=== PATIENT | female | born 1950 | race Caucasian/White ===

== ENCOUNTER 2018-10-01 12:01 | Emergency (ER) | payer MEDICARE ==
[~2018-10-01] VITALS: Ht 157.5 cm; Wt 59.0 kg
[~2018-10-01 12:01] MED LIST: CITA-311 PO; LEVO112T5 PO; LORA0.5T PO; PANT-47 PO
[2018-10-01] MEDS ORDERED: normal saline 1000ML IV soln IVB ONE (12:15)
--- NOTE | 2018-10-01 12:36 | NUR ---
UP TO BATHROOM WITH SB ASSIST. OBTAINED CC URINE SPEC
[2018-10-01 12:42] LABS: BASOPHILS % (AUTO) 0.6 % (0-1); EOSINOPHILS % (AUTO) 0.5 % (0-6); HEMATOCRIT 45.9 % (35.0-45.0); HEMOGLOBIN 16.2 g/dl (12.0-16.0); LYMPHOCYTES # (AUTO) 2.1 X10'3 (1.1-4.8); LYMPHOCYTES % (AUTO) 25.1 % (21-51); MEAN CORPUSCULAR HEMOGLOBIN 36.7 PG (27.0-31.0); MEAN CORPUSCULAR HGB CONC 35.3 g/dL (33.0-36.5); MEAN CORPUSCULAR VOLUME 103.9 FL (78-98); MEAN PLATELET VOLUME 8.9 FL (7.4-10.4); MONOCYTES # (AUTO) 0.9 X10'3 (0-0.9); MONOCYTES % (AUTO) 10.5 % (2-12); NEUTROPHILS # (AUTO) 5.3 X10'3 (1.8-7.7); NEUTROPHILS % (AUTO) 63.3 % (42-75); PLATELET COUNT 195 X10'3 (140-440); RED BLOOD COUNT 4.42 X10'6 (4.20-5.60); RED CELL DISTRIBUTION WIDTH 12.9 % (11.5-14.5); WHITE BLOOD COUNT 8.4 X10'3 (4.5-11.0)
[2018-10-01] MEDS ORDERED: LORazepam 1 MG tablet PO ONE (12:45)
[2018-10-01 12:46] LABS: ALANINE AMINOTRANSFERASE 38 U/L (12-78); ALBUMIN 3.2 G/DL (3.4-5.0); ALBUMIN/GLOBULIN RATIO 1.1 (1.1-1.5); ALKALINE PHOSPHATASE 69 IU/L (46-116); ANION GAP 10 (8-16); ASPARTATE AMINO TRANSFERASE 33 U/L (10-37); BILIRUBIN,TOTAL 0.4 MG/DL (0.1-1.0); BLOOD UREA NITROGEN 5 MG/DL (7-18); BUN/CREATININE RATIO 9.8 (6.6-38.0); CALCIUM 8.2 MG/DL (8.5-10.1); CHLORIDE 104 MMOL/L (99-107); CREATININE 0.51 MG/DL (0.40-0.90); GLUCOSE 84 MG/DL (70-104); POTASSIUM 3.8 MMOL/L (3.5-5.1); SODIUM 136 MMOL/L (135-145); TOTAL CARBON DIOXIDE 22.2 MMOL/L (24-32); TOTAL PROTEIN 6.2 G/DL (6.4-8.2); eGFR > 90 ML/MIN
[2018-10-01 12:49] LABS: CLARITY,URINE SLIGHTLY CLOUDY (Clear); COLOR,URINE STRAW (Yellow); GLUCOSE, URINE NEGATIVE (Neg); KETONES,URINE NEGATIVE (Neg); LEUKOCYTE ESTERASE ,URINE NEGATIVE (Neg); NITRITES, URINE POSITIVE (Neg); OCCULT BLOOD,URINE NEGATIVE (Neg); PROTEIN,URINE NEGATIVE (Neg); UA COLLECTION TYPE CLN CATCH MIDSTREAM; UROBILINOGEN,URINE 0.2 E.U/dL (0.2-1.0)
[2018-10-01 12:55] LABS: BACTERIA,URINE 4+ /HPF (Neg); MUCUS STRANDS NONE SEEN /LPF (Neg); RBC,URINE 0-2 /HPF (0-2); SQUAMOUS EPITHELIAL CELL,UR FEW /LPF (FEW); WBC,URINE 0-4 /HPF (0-4)
[2018-10-01 12:57] LABS: ETHANOL 0.178 GM/DL (0.0-0.010)
[2018-10-01 13:02] LABS: URINE AMPHETAMINE SCREEN NEGATIVE (Neg); URINE BARBITUATE SCREEN NEGATIVE (Neg); URINE BENZODIAZEPINES SCREEN NEGATIVE (Neg); URINE CANNABINOID SCREEN NEGATIVE (Neg); URINE COCAINE SCREEN NEGATIVE (Neg); URINE METHADONE SCREEN NEGATIVE (Neg); URINE OPIATE SCREEN POSITIVE (Neg); URINE PHENCYCLIDINE SCREEN NEGATIVE (Neg)
--- NOTE | 2018-10-01 14:00 | NUR ---
TOLERATED REGULAR DIET WELL AND RETAINED.
--- NOTE | 2018-10-01 14:45 | NUR ---
[facility] STAFF-PA AT THE BEDSIDE WITH PATIENT.
--- NOTE | 2018-10-01 15:12 | NUR ---
UP TO BATHROOM WITH STANDBY ASSIST TO URINATE. STEADY GAIT.
[2018-10-01] MEDS ORDERED: PROP20TA6 PO (15:33)
[2018-10-01] MEDS ORDERED: MULT1TAB74 PO (15:33)
[2018-10-01] MEDS ORDERED: LEVO75TA PO (15:33)
[2018-10-01] MEDS ORDERED: HYDR-4353 PO (15:33)
[2018-10-01] MEDS ORDERED: TRAM50TA2 PO (15:33)
[2018-10-01 17:15] VITALS: BP 126/94
== END 2018-10-01 17:18 ==
LOC: ER 12:02
DX: F32.9 Major depressive disorder, single episode, unspecified (principal); F41.9 Anxiety disorder, unspecified; F79 Unspecified intellectual disabilities; E86.0 Dehydration; I10 Essential (primary) hypertension; J44.9 Chronic obstructive pulmonary disease, unspecified; E03.9 Hypothyroidism, unspecified; G89.29 Other chronic pain; F17.200 Nicotine dependence, unspecified, uncomplicated; Z88.6 Allergy status to analgesic agent; Z90.710 Acquired absence of both cervix and uterus; Z79.899 Other long term (current) drug therapy
CPT/HCPCS: 36415; 71045; 80053; 80305; 80320; 81001; 84443; 85025; 93005; 96360; 99285; J7030

== ENCOUNTER 2018-10-01 16:42 | Inpatient (IN) | payer MEDICARE, OTHER ==
[~2018-10-01] VITALS: Ht 157.5 cm; Wt 63.6 kg
[~2018-10-01 16:42] MED LIST changes: +HYDR-4353 PO; +LEVO75TA PO; +MULT1TAB74 PO; +PROP20TA6 PO; +TRAM50TA2 PO
[2018-10-01] MEDS ORDERED: magnesium hydroxide 30ml (MOM) UD suspension PO PRN (17:35)
[2018-10-01] MEDS ORDERED: tuberculin, purif. prot. deriv. 5 units/0.1ml ID ONE (17:35)
[2018-10-01] MEDS ORDERED: loperamide 2mg capsule PO PRN (17:35)
[2018-10-01] MEDS ORDERED: LORazepam 1 MG tablet PO PRN ×2 (17:35→18:35)
[2018-10-01] MEDS ORDERED: NICOTINE POLACRILEX 2 MG LOZENGE MM PRN (17:35)
[2018-10-01] MEDS ORDERED: hydrOXYzine 25 MG tablet PO PRN (17:35)
[2018-10-01] MEDS ORDERED: acetaminophen 325mg tablet PO PRN (17:35)
[2018-10-01 17:41] VITALS: BP 116/59
--- NOTE | 2018-10-01 18:36 | NUR ---
Pt self presented to the ER with C/O severe depression, has not been eating, reports weight loss. Reports S/I without a plan. Pt drinks ETOH daily; 0.178 today. Reports drinking 2 liters of beer this AM. Pt seen in the ER by JIMMY Trinidad, then admitted to the unit at 1715. Pt brought up via wheelchair by francheska Banda. Pt changed into green scrubs for safety check. Belongings to be inventoried by oncoming shift. Home medications stored in pharmacy. Presents with chronic bilat hand tremors that she reports have been there for 20 years, however they are worsened by high anxiety. Given lorazepam 1 mg per order from Dr. Baker.
[2018-10-01] MEDS: HYDROcodone/acetaminophen 10/325mg tab PO PRN (19:25)
[2018-10-01 20:00] VITALS: BP 116/59
[2018-10-01] MEDS: pantoprazole 40mg Tablet.DR PO SCH (20:00)
[2018-10-01] MEDS: propranolol 10mg tablet PO SCH (20:00)
[2018-10-01] MEDS: LORazepam 1 MG tablet PO PRN (21:13)
[2018-10-01] MEDS: OLANZapine 2.5MG tablet PO PRN (21:13)
[2018-10-02] VITALS: BP 134/71
[2018-10-02] MEDS: LORazepam 1 MG tablet PO SCH ×7 (00:03→23:50)
[2018-10-02] MEDS: HYDROcodone/acetaminophen 10/325mg tab PO PRN ×5 (00:07→23:51)
--- NOTE | 2018-10-02 04:04 | NUR ---
Nursing Progress Note: Legal hold: 5150 Client on involuntary status for DTS. Report received from nurse with use of SBAR: BIBIANA Locke. Why are they here: The patient self-presented to the ER. She c/o severe depression and anxiety. She reports loss of appetite, weight loss, and says that she drinks beer daily starting in the morning. Her BAL was 0.178 at admit. She is a former client of [facility]. The patient has bilateral tremors to her arms that "worsen when I'm anxious. She has a home in [place] to return to, "but it's too much house for me. I just live in one room, my bedroom." Assessment What has happened this shift: The patient was admitted to [facility] at 1715. She was on her bed at shift change, then for 1:1. She reports that her depression and anxiety is overwhelming. "I just sit in my room and watch tv, I isolate a lot." She says that upon waking, she reaches over for her alcohol before she even gets up. "I drink all the time." She states that she hasn't eaten in 5 days, "I'm not hungry, but I do drink Boost." She denies AV/H, is depressed with SI, but has no plan. She has been started on 20mg Propanolol, Ativan 1mg q4 hours ATC, with Ativan 1mg PRN q8 hours, and Olanzepine 5mg PRN HS. VS q4 hours have been WNL. 127/83, P.75 at MN, 143/72, P.70 at 0430. the patient appears quite weak and is unsteady on her feet. She is a fall risk. PT eval ordered. S/I, H/I: No plan A/VH: denies Sleep:Poor ADL's: Independent Group attendance: No groups yet Were meds taken:Yes Any med S/E none noted or seen. Mental Status Exam Appearance: Disheveled older lady with hair sticking up all over, wearing green scrubs. Eye contact:Good Behavior: Laying in bed all shift. Speech: Clear, but pressured. Mood: Anxious. Affect: Constricted Thought process: Linear, goal oriented. Thought Content: perseverates about anxiety. Cognition: A/O x4 Insight:Poor Judgment: Poor Interventions PRN's used: Ativan, Propanolol, Olanzepine. Therapeutic interventions: 1:1, therapeutic listening, created safe environment, assessments, positive feedback. Restraints/seclusion/emergency medication: N/A Justification of Continued Inpatient Treatment: The patient is in crisis, and needs to be stabilized. She cannot provide for safety, food and safe housing at this time.
[2018-10-02] MEDS: multivitamins, therapeutics tablet PO SCH (07:51)
[2018-10-02] MEDS: folic acid 1mg tablet PO SCH (07:51)
[2018-10-02] MEDS: pantoprazole 40mg Tablet.DR PO SCH ×2 (07:51→20:21)
[2018-10-02] MEDS: cyanocobalamin 500mcg tablet PO SCH (07:52)
[2018-10-02] MEDS: levoTHYROXINE 75mcg tablet PO SCH (07:52)
[2018-10-02] MEDS: nicotine 21mg patch - 24 hr TD SCH (07:53)
[2018-10-02 07:54] VITALS: BP 127/61
[2018-10-02] MEDS: propranolol 10mg tablet PO SCH ×2 (08:00→20:20)
[2018-10-02 08:19] LABS: CHOLESTEROL 191 MG/DL (0-200); HDL CHOLESTEROL 97 MG/DL (35-60); LDL CHOLESTEROL 78 MG/DL (50-100); TRIGLYCERIDES 34 MG/DL (20-135)
[2018-10-02] MEDS: LORazepam 1 MG tablet PO PRN (09:45)
--- NOTE | 2018-10-02 10:38 | NUR ---
Malnutrition Consult: Pt admit w/ depression PO 100% regular diet meeting needs. No edema/wounds, weakness present. At this time pt does not qualify for malnutrition. Addendum: 10/02/18 at [address] Amended: Links added.
--- NOTE | 2018-10-02 16:30 | NUR ---
NURSING PROGRESS NOTE Legal hold: Voluntary Report received from nurse Sj RN with use of SBAR Why are they here: The patient self-presented to the ER. She c/o severe depression and anxiety. She reports loss of appetite, weight loss, and says that she drinks beer daily starting in the morning. Her BAL was 0.178 at admit. She is a former client of [facility]. The patient has bilateral tremors to her arms that "worsen when I'm anxious. She has a home in [place] to return to, "but it's too much house for me. I just live in one room, my bedroom." Assessment What has happened this shift: Pt seen at bedside for 1:1 assessment. Pt described her current mental health issues as depression after the loss of her and her physical cx as having been drinking heavily for the past year. She asked questions about the effects of withdrawal and "how long will it last and what is it like?" Withdrawal education provided encouraging pt to rest and to be sure and let staff know how she is feeling and ask for help to get her needs met if she needs assistance. Pt educated to the use of the call light on her bed and was able to demonstrate use of the call light. She was encouraged to not get up without staff assistance. Education provided on the bed alarm which will be set at night. S/I, H/I: No plan A/VH: denies Sleep:Poor ADL's: Independent Group attendance: No stays in bed Were meds taken:Yes Any med S/E: None noted or reported Mental Status Exam Appearance: Disheveled; unkempt Eye contact:Good Behavior: Laying in bed all shift. Speech: Clear Mood: Anxious. Affect: Constricted Thought process: Linear, goal oriented. Thought Content: perseverates about anxiety. Cognition: A/O x4 Insight:Poor Judgment: Poor Interventions PRN's used: Ativan, [place] Therapeutic interventions: Provided active listening and therapeutic communication, encouraged shower and group attendance and participation, administered medications monitoring for side effects, VS q 4 hours, monitored for safety providing q15min safety checks. Restraints/seclusion/emergency medication: N/A Justification of Continued Inpatient Treatment: Patient unable to care for self and she lives alone. Passive SI has been drinking heavily not eating or sleeping well. Pt is in need of medication stabilization to prevent rehospitalization.
[2018-10-02] MEDS ORDERED: proMETHazine 6.25 mg/5 ml UD oral syrup PO PRN (19:20)
[2018-10-02 20:00] VITALS: BP 139/64
[2018-10-02] MEDS: olanzapine 10mg tablet PO SCH (20:21)
[2018-10-02] MEDS: gabapentin 100mg capsule PO SCH (20:21)
--- NOTE | 2018-10-03 03:04 | NUR ---
Nursing Progress Note: Legal hold: 5150 Client on involuntary status for DTS. Report received from nurse with use of SBAR: BIBIANA Tovar. Why are they here: The patient self-presented to the ER. She c/o severe depression and anxiety. She reports loss of appetite, weight loss, and says that she drinks beer daily starting in the morning. Her BAL was 0.178 at admit. She is a former client of [facility]. The patient has bilateral tremors to her arms that "worsen when I'm anxious. She has a home in [place] to return to, "but it's too much house for me. I just live in one room, my bedroom." Assessment What has happened this shift: The patient was seen in her room for 1:1. She was lying on her bed. She appears fatigued, anxious, and has bilateral tremors to her arms. She claims they have been there for 20 years. She has difficulty using a glass to drink from and hard time taking medicine. She reports that she lives in a house that is way too big for just her. "My room is upstairs. Sometimes when I think I'm hungry, I decide that it's just too far to go for it. I just get too tired." She reports that her children are "taking care of getting rid of my house, so I can move closer to town." The patient remained in her room all night, she is still unsteady on her feet, weak, and a fall risk. The patient does not always use call light for assistance, and overestimates her abilities. S/I, H/I: No plan A/VH: denies Sleep:Poor ADL's: Independent, needs ambulation assistance. Group attendance: No groups tonight Were meds taken:Yes Any med S/E none noted or seen. Mental Status Exam Appearance: Disheveled older lady with hair matted in the back, wearing green scrubs. Eye contact:Good Behavior: Laying in bed all shift. Speech: Clear, but pressured. Mood: Anxious. Affect: Constricted Thought process: Linear, goal oriented. Thought Content: perseverates about anxiety. Cognition: A/O x4 Insight:Poor Judgment: Poor Interventions PRN's used: Ativan, Propanolol, Olanzepine, [place] x2 Therapeutic interventions: 1:1, therapeutic listening, created safe environment, assessments, positive feedback. Restraints/seclusion/emergency medication: N/A Justification of Continued Inpatient Treatment: The patient is in crisis, and needs to be stabilized. She cannot provide for safety, food and safe housing at this time.
[2018-10-03 04:00] VITALS: BP 138/82
[2018-10-03] MEDS: LORazepam 1 MG tablet PO SCH ×6 (04:13→23:04)
[2018-10-03] MEDS: HYDROcodone/acetaminophen 10/325mg tab PO PRN ×4 (04:14→23:04)
[2018-10-03 07:26] LABS: BASOPHILS % (AUTO) 0.4 % (0-1); EOSINOPHILS # (AUTO) 0.1 X10'3 (0-0.9); HEMATOCRIT 46.4 % (35.0-45.0); HEMOGLOBIN 15.7 g/dl (12.0-16.0); LYMPHOCYTES # (AUTO) 1.9 X10'3 (1.1-4.8); LYMPHOCYTES % (AUTO) 32.3 % (21-51); MEAN CORPUSCULAR HEMOGLOBIN 35.6 PG (27.0-31.0); MEAN CORPUSCULAR HGB CONC 33.8 g/dL (33.0-36.5); MEAN CORPUSCULAR VOLUME 105.5 FL (78-98); MEAN PLATELET VOLUME 8.9 FL (7.4-10.4); MONOCYTES # (AUTO) 0.9 X10'3 (0-0.9); MONOCYTES % (AUTO) 14.8 % (2-12); NEUTROPHILS % (AUTO) 51.5 % (42-75); PLATELET COUNT 176 X10'3 (140-440); RED CELL DISTRIBUTION WIDTH 12.7 % (11.5-14.5); WHITE BLOOD COUNT 5.9 X10'3 (4.5-11.0)
[2018-10-03] MEDS: pantoprazole 40mg Tablet.DR PO SCH ×2 (07:31→20:08)
[2018-10-03] MEDS: cyanocobalamin 500mcg tablet PO SCH (07:31)
[2018-10-03] MEDS: multivitamins, therapeutics tablet PO SCH (07:32)
[2018-10-03] MEDS: cefpodoxime proxetil 100mg tablet PO SCH ×2 (07:32→16:40)
[2018-10-03] MEDS: duloxetine 30mg CAPSULE.DR PO SCH (07:32)
[2018-10-03] MEDS: levoTHYROXINE 75mcg tablet PO SCH (07:32)
[2018-10-03] MEDS: gabapentin 100mg capsule PO SCH ×3 (07:32→20:09)
[2018-10-03] MEDS: folic acid 1mg tablet PO SCH (07:32)
[2018-10-03] MEDS: propranolol 10mg tablet PO SCH ×2 (07:32→20:09)
[2018-10-03] MEDS: nicotine 21mg patch - 24 hr TD SCH (07:33)
[2018-10-03 07:41] VITALS: BP 145/86
[2018-10-03 07:45] LABS: ALANINE AMINOTRANSFERASE 37 U/L (12-78); ALBUMIN 3.1 G/DL (3.4-5.0); ALKALINE PHOSPHATASE 62 IU/L (46-116); ANION GAP 6 (8-16); ASPARTATE AMINO TRANSFERASE 28 U/L (10-37); BILIRUBIN,TOTAL 0.7 MG/DL (0.1-1.0); BLOOD UREA NITROGEN 9 MG/DL (7-18); CALCIUM 9.2 MG/DL (8.5-10.1); CHLORIDE 108 MMOL/L (99-107); CREATININE 0.69 MG/DL (0.40-0.90); GLUCOSE 99 MG/DL (70-104); MAGNESIUM 1.7 MG/DL (1.5-2.4); PHOSPHORUS 3.8 MG/DL (2.3-4.5); POTASSIUM 3.6 MMOL/L (3.5-5.1); SODIUM 143 MMOL/L (135-145); TOTAL CARBON DIOXIDE 29.2 MMOL/L (24-32); TOTAL PROTEIN 6.1 G/DL (6.4-8.2); eGFR 85 ML/MIN
--- NOTE | 2018-10-03 14:27 | NUR ---
Nursing Progress Note: Legal hold: Voluntary Report received from nurse Sj RN with use of SBAR Why are they here: The patient self-presented to the ER. She c/o severe depression and anxiety. She reports loss of appetite, weight loss, and says that she drinks beer daily starting in the morning. Her BAL was 0.178 at admit. She is a former client of [facility]. The patient has bilateral tremors to her arms that "worsen when I'm anxious. She has a home in [place] to return to, "but it's too much house for me. I just live in one room, my bedroom." Assessment What has happened this shift: Pt appears to be asleep at start of shift on her side RR even and unlabored. 1:1 assessment provided at bedside. Pt states she is beginning to feel better. Pt up for breakfast and lunch and is eating better today. Encouraged her to shower. S/I, H/I: No plan A/VH: denies Sleep:Poor ADL's: Independent, needs ambulation assistance and prompts to shower Group attendance: No Were meds taken:Yes Any med S/E: None noted or reported Mental Status Exam Appearance: Disheveled older lady with hair matted in the back, wearing green scrubs. Eye contact:Good Behavior: Complains of pain most of the time Speech: Clear, but pressured. Mood: Anxious. Affect: Constricted Thought process: Linear Thought Content: perseverates about anxiety. Cognition: A/O x4 Insight:Poor Judgment: Poor Interventions PRN's used: [place] Therapeutic interventions: 1:1 therapeutic communication and listening, administered medicine w/education and monitored for side effects, encouraged pt to shower and care for ADL's, Q 15 min monitoring for safety check. Restraints/seclusion/emergency medication: N/A Justification of Continued Inpatient Treatment: The patient is in crisis, and needs to be stabilized. She cannot provide for safety, food and safe housing at this time.
[2018-10-03 20:00] VITALS: BP 158/81
[2018-10-03] MEDS: olanzapine 10mg tablet PO SCH (20:09)
[2018-10-03] MEDS: lactobacillus rhamnosus 10,000 MMU CELLS/CAPSULE PO SCH (20:09)
--- NOTE | 2018-10-03 22:53 | NUR ---
Nursing Progress Note: Legal hold: None Client is voluntary. Report received from nurse with use of SBAR: BIBIANA Tovar. Why are they here: The patient self-presented to the ER. She c/o severe depression and anxiety. She reports loss of appetite, weight loss, and says that she drinks beer daily starting in the morning. Her BAL was 0.178 at admit. She is a former client of [facility]. The patient has bilateral tremors to her arms that "worsen when I'm anxious. She has a home in [place] to return to, "but it's too much house for me. I just live in one room, my bedroom." Assessment What has happened this shift: At shift change, the patient was seen in the group room sitting in a chair. She agreed to 1:1 at bedside. The patient reports that she feels a lot stronger today, "I can do a lot of things today, that I couldn't do yesterday." Her bilateral arm tremors appear to have lessened, "I can hold a glass of water today, without spilling it." She says that when she discharges, she will have to go back to her house in [place], to pack her belongings. "I have to go there, but I don't want to." She reports that eventually, she will go to assisted living, "where I won't be so isolated, and away from people." She says that she has many rolls of fabric to use for quilting, "I love to make quilts, and I'll be able to do that there." The patient states that her anxiety has lessened, and the pain medicine is helping. She is using a walker for most ambulatory tasks, and says that she is sleeping better. S/I, H/I: No plan A/VH: denies Sleep:Poor ADL's: Independent, needs ambulation assistance. Uses FWW. Group attendance: No groups tonight Were meds taken:Yes Any med S/E none noted or seen. Mental Status Exam Appearance: Disheveled older lady with hair matted in the back, wearing red pajamas. Eye contact:Good Behavior: Ambulating with FWW around unit. Speech: Clear, but pressured. Mood: Anxious. Affect: Constricted Thought process: Linear, goal oriented. Thought Content: perseverates about anxiety. Cognition: A/O x4 Insight:Poor Judgment: Poor Interventions PRN's used: [place] x2 Therapeutic interventions: 1:1, therapeutic listening, created safe environment, assessments, positive feedback. Restraints/seclusion/emergency medication: N/A Justification of Continued Inpatient Treatment: The patient is in crisis, and needs to be stabilized. She cannot provide for safety, food and safe housing at this time.
[2018-10-04] MEDS: ibuprofen 200mg tablet PO PRN (00:48)
[2018-10-04] MEDS: LORazepam 1 MG tablet PO SCH ×6 (03:54→23:56)
[2018-10-04] MEDS: HYDROcodone/acetaminophen 10/325mg tab PO PRN ×4 (03:54→20:42)
[2018-10-04 08:00] VITALS: BP 159/92
[2018-10-04] MEDS: folic acid 1mg tablet PO SCH (08:08)
[2018-10-04] MEDS: multivitamins, therapeutics tablet PO SCH (08:08)
[2018-10-04] MEDS: levoTHYROXINE 75mcg tablet PO SCH (08:08)
[2018-10-04] MEDS: pantoprazole 40mg Tablet.DR PO SCH ×2 (08:08→20:41)
[2018-10-04] MEDS: duloxetine 30mg CAPSULE.DR PO SCH (08:08)
[2018-10-04] MEDS: lactobacillus rhamnosus 10,000 MMU CELLS/CAPSULE PO SCH ×2 (08:08→20:40)
[2018-10-04] MEDS: thiamine 100mg tablet PO SCH (08:08)
[2018-10-04] MEDS: propranolol 10mg tablet PO SCH ×2 (08:09→20:40)
[2018-10-04] MEDS: gabapentin 100mg capsule PO SCH ×3 (08:09→20:41)
[2018-10-04] MEDS: cefpodoxime proxetil 100mg tablet PO SCH ×2 (08:09→17:48)
[2018-10-04] MEDS: cyanocobalamin 500mcg tablet PO SCH (08:09)
[2018-10-04] MEDS: nicotine 21mg patch - 24 hr TD SCH (08:15)
[2018-10-04 08:20] VITALS: BP 159/92
--- NOTE | 2018-10-04 09:10 | NUR ---
Pt initially had inspiratory rhonchi left lower lobe, cleared with cough. Addendum: 10/04/18 at 0914 by Kelsey Cooley RN (Lee) Amended: Links added.
--- NOTE | 2018-10-04 13:38 | NUR ---
Nursing Progress Note: Legal hold: None Client is voluntary. Report received from nurse with use of SBAR: BIBIANA Gustafson. Why are they here: The patient self-presented to the ER. She c/o severe depression and anxiety. She reports loss of appetite, weight loss, and says that she drinks beer daily starting in the morning. Her BAL was 0.178 at admit. She is a former client of [facility]. The patient has bilateral tremors to her arms that "worsen when I'm anxious. She has a home in [place] to return to, "but it's too much house for me. I just live in one room, my bedroom." Assessment What has happened this shift: Pt admits to depression though states she feels better when she is here, she gets depressed when she thinks about going home, "should be the opposite." Pt states that she lives in a big house with lots of property and is alone most of the time. Pt denies SI/HI/AH/VH. Pt has moderate to severe BUE tremors that are worse with intention, pt states that it runs in her family and she has had them for 20 years. Pt continues on routine Ativan, requested prn Kulm 10 at 1115 for 7/10 neck pain. Pt was working with PT but they are discharging her today. PT left a handout with exercises they want the pt to do 2-3 times per day, also instructed to encourage pt to ambulate in the hallway at least 2 times per day for strengthening and endurance. Pt is deconditioned. PT also recommends that pt be discharged with an order for a 4 wheeled walker, Chrissy BRO notified. Pt states she uses a Trilogy inhaler at home, asked if her kids could bring it in for her, explained that if they do a label with dosage instructions needs to be on the inhaler or the box and the pharmacy here would have to check it. Pt observed ambulating in the hallway with peers using FWW, gait is steady, balance is good, pt has general weakness. Pt needs reminders at times to use walker. Pt c/o constipation, MOM administered at 0900. Pt needs encouragement for po fluids. She states she usually drinks only 1 pitcher if that per day of water, at home she was eating hot dogs and drinking beer though states she did drink Boost. Nutrition education and dehydration prevention teaching provided. Pt states that she will try to drink at least 2 water pitchers today. S/I, H/I: Pt denies A/VH: Pt denies Sleep: Slept 7.25 hours per noc shift report ADL's: Independent, uses FWW Group attendance: Yes Were meds taken:Yes Any med S/E: none reported or observed Mental Status Exam Appearance: Kyphotic, stubble on chin, has clean hospital scrubs on Eye contact:Good Behavior: cooperative Speech: Clear, soft Mood: euthymic Affect: calm Thought process: Linear Thought Content: does not wish to return home, perseverates at times on pain med regime stating she was on pain pills X 20 years and would break them in half and take every 2 hours during the night while at home. Cognition: A/O x4 Insight:Fair Judgment: Fair Interventions PRN's used: [place] 10, MOM Therapeutic interventions: 1:1 assessment, therapeutic conversation, medication administration/monitoring/education, encouragement to exercise/ambulate, encouragement to use FWW, encouragement to attend groups, pain management, fall prevention, Q 15 min safety checks. Restraints/seclusion/emergency medication: N/A Justification of Continued Inpatient Treatment: The patient is in crisis, and needs to be stabilized. She cannot provide for safety, food and safe housing at this time, pt is an alcoholic and is wanting to go to inpatient rehab, looking into [facility].
[2018-10-04 20:37] VITALS: BP 144/73
[2018-10-04] MEDS: olanzapine 10mg tablet PO SCH (20:41)
--- NOTE | 2018-10-05 02:10 | NUR ---
Nursing Progress Note: Legal hold: Voluntary Client on voluntary DTS Report received from nurse with use of SBAR: BIBIANA Lu Why are they here: The patient was brought to the ER after her son called EMS r/t depression with S/I. The c/o severe depression and anxiety r/t the anneversary of the of her . She reports loss of appetite, weight loss, and says that she drinks beer daily starting in the morning, approximately 2-4 quarts/day. Her BAL was 0.178 at admit, continues on detox protocol. She is a former client of [facility]. The patient has chronic bilateral tremors to her arms and chronic pain r/t osteoarthritis, scoliosis, and osteoporosis. She has a home in [place] to return to, "but it's too much house for me. I just live in one room, my bedroom." She has a possible history of atrial fibrillation with arrhythmia, recently received a echocardiogram, which showed mild regurgitation. She has an upcoming Dumpcart [employer] appointment with Dr. Reich on 10/14/18. Pt. is currently on ABT r/t UTI. Assessment What has happened this shift: Pt. up in the Recreation Room at the beginning of the shift, continues to exhibit bilateral tremulousness. She is later up ambulating in the hallway with use of FWW and steady gait, fall precautions remain in place. Chronic pain relived with PRN [place], and no s/s of withdrawal exhibited this shift AEB V/S WNL, no diaphoresis, and no c/o n/v. 1:1 completed at bedside, pt. denies S/I, and states her depression and anxiety are "Much better since she has been here." She reports she has has been sleeping and eating well. Pt. identifies her coping mechanisms as her close knit family and being outside in nature. She reports that her plan for the future is to move to a senior apartment, without stairs. U/A obtained per order and culture/colony count in process, will continue to monitor. S/I, H/I: Denies A/VH: N/A Sleep: Appears to be resting comfortably this shift, awakened for scheduled Ativan per Detox protocol ADL's: Ambulates with steady gait using FWW, pt. continues to exhibit bilateral tremulousness, fall precautions in place Group attendance: Pt. reports she attends groups Were meds taken: Yes Any med S/E: None Mental Status Exam Appearance: Pt. appears frail and older than chronological age, however neat and appropriately dressed in hospital attire. She continues to exhibit bilateral tremulousness. Eye contact: Good Behavior: Cooperative with fatigue Speech: Soft, WNL Mood: Pleasant Affect: Blunted, animates with conversation Thought process: Goal directed Thought Content: Phobia r/t returning home alone, wants to move to senior housing Cognition: A&O X3 (not to day) Insight: Fair Judgment: Fair Interventions PRN's used: [place] X1 with effectiveness Therapeutic interventions: Introduced self and established rapport, maintained and safe and therapeutic environment, ensured contract for safety, provided medication eduction, encouraged independent performance of ADLs and prescribed PT exercises, monitored for s/s of withdrawal, maintained fall precautions, obtained ordered U/A, monitored pain level and need for intervention, and maintained Q 15 min safety checks. Restraints/seclusion/emergency medication: N/A Justification of Continued Inpatient Treatment: Pt. requires a safe and supportive environment and interruption of current crisis. She will possibly discharge to [facility].
[2018-10-05] MEDS: LORazepam 1 MG tablet PO SCH ×3 (04:20→12:39)
[2018-10-05] MEDS: HYDROcodone/acetaminophen 10/325mg tab PO PRN ×5 (04:31→20:54)
[2018-10-05] MEDS: multivitamins, therapeutics tablet PO SCH (07:37)
[2018-10-05] MEDS: gabapentin 100mg capsule PO SCH ×2 (07:37→12:39)
[2018-10-05] MEDS: propranolol 10mg tablet PO SCH ×2 (07:38→20:52)
[2018-10-05] MEDS: cyanocobalamin 500mcg tablet PO SCH (07:38)
[2018-10-05] MEDS: pantoprazole 40mg Tablet.DR PO SCH ×2 (07:38→20:52)
[2018-10-05 07:39] VITALS: BP 118/67
[2018-10-05] MEDS: ibuprofen 200mg tablet PO PRN ×3 (07:39→16:46)
[2018-10-05] MEDS: levoTHYROXINE 75mcg tablet PO SCH (07:39)
[2018-10-05] MEDS: lactobacillus rhamnosus 10,000 MMU CELLS/CAPSULE PO SCH ×2 (07:39→20:55)
[2018-10-05] MEDS: thiamine 100mg tablet PO SCH (07:40)
[2018-10-05] MEDS: duloxetine 30mg CAPSULE.DR PO SCH (07:40)
[2018-10-05] MEDS: folic acid 1mg tablet PO SCH (07:40)
[2018-10-05] MEDS: nicotine 21mg patch - 24 hr TD SCH (07:42)
[2018-10-05] MEDS: cefpodoxime proxetil 100mg tablet PO SCH ×2 (09:01→17:52)
[2018-10-05] MEDS: acetaminophen 325mg tablet PO PRN ×2 (09:01→21:54)
--- NOTE | 2018-10-05 10:27 | NUR ---
Spoke with MD Palma regarding tapering pt off ativan as discussed in the flash meeting. She needs to start a taper to be discharged to [facility] as planned which was discussed in flash meeting.
[2018-10-05] MEDS ORDERED: LORazepam 1 MG tablet PO SCH (16:00)
[2018-10-05] MEDS: hydrOXYzine 25 MG tablet PO SCH (16:47)
--- NOTE | 2018-10-05 17:19 | NUR ---
Nursing Progress Note: Legal hold: None Client is voluntary. Report received from nurse with use of SBAR: BIBIANA Weston. Why are they here: The patient self-presented to the ER. She c/o severe depression and anxiety. She reports loss of appetite, weight loss, and says that she drinks beer daily starting in the morning. Her BAL was 0.178 at admit. She is a former client of [facility]. The patient has bilateral tremors to her arms that "worsen when I'm anxious. She has a home in [place] to return to, "but it's too much house for me. I just live in one room, my bedroom." Assessment What has happened this shift: At shift change patient was still asleep in her bed. Pt later woke up and was calm and cooperative and agreeable to our 1:1 assessment. Took medications without incident. Stated "I slept really good." Pt denies feeling SI today and reports that she is "feeling a lot better" and implied she believes its because of the medications. She also reported that group has given her much needed coping mechanism tools, and pt stated, "I feel like Im learning something for a change." Pt had a calm demeanor during the beginning of shift then after lunch seemed to become a little anxious. Pts medications are to be adjusted per md orders, she is to start decreasing her ativan from q4h to q8h prn and atarax was added to her emar per MD Up. Pts medication adjustments are focused for her future discharge plan. S/I, H/I: No plan A/VH: denies Sleep:fair ADL's: Independent, needs ambulation assistance. Uses FWW. Group attendance: Yes Were meds taken:Yes Any med S/E none noted or seen. Mental Status Exam Appearance: Disheveled older lady with hair matted in the back, wearing red pajamas. Eye contact:Good Behavior: Ambulating with FWW around unit. Speech: Clear Mood: Anxious. Affect: Constricted Thought process: Linear, goal oriented. Thought Content: perseverates about anxiety. Cognition: A/O x4 Insight:Poor Judgment: Poor Interventions PRN's used: [place] and ativan Therapeutic interventions: 1:1, therapeutic listening, created safe environment, assessments, positive feedback. Restraints/seclusion/emergency medication: N/A Justification of Continued Inpatient Treatment: The patient is in crisis, and needs continued therpuetic interventionand support to prevent decompensation. She cannot provide for safety, food and safe housing at this time.
[2018-10-05] MEDS: gabapentin 300mg capsule PO SCH (20:53)
[2018-10-05] MEDS: olanzapine 10mg tablet PO SCH (20:53)
[2018-10-05] MEDS: LORazepam 1 MG tablet PO PRN (20:54)
[2018-10-05 20:56] VITALS: BP 126/76
--- NOTE | 2018-10-06 00:02 | NUR ---
Nursing Progress Note: Legal hold: Voluntary Client on voluntary DTS Report received from nurse with use of SBAR: BIBIANA Strong Why are they here: The patient was brought to the ER after her son called EMS r/t depression with S/I. The c/o severe depression and anxiety r/t the anneversary of the of her . She reports loss of appetite, weight loss, and says that she drinks beer daily starting in the morning, approximately 2-4 quarts/day. Her BAL was 0.178 at admit, continues on detox protocol. She is a former client of [facility]. The patient has chronic bilateral tremors to her arms and chronic pain r/t osteoarthritis, scoliosis, and osteoporosis. She has a home in [place] to return to, "but it's too much house for me. I just live in one room, my bedroom." She has a possible history of atrial fibrillation with arrhythmia, recently received a echocardiogram, which showed mild regurgitation. She has an upcoming Office Cleaner appointment with Dr. Reich on 10/14/18. Pt. is currently on ABT r/t UTI. Assessment What has happened this shift: Pt. up in the Group Room at the beginning of the shift. She spends her time interacting with her peers. She agrees to a 1:1 assessment at her bedside. She is tearful stating "I just stayed in bed and waisted away, then I started drinking beer again from the time I woke up till I went to bed." She says she started doing this when she had to take care of people she loved and watch them pass. She verbalizes her need to stay in treatment and confirms that she knows she deserves help so that she can get better. She is compliant with all her evening medications. Denies SI, HI, VH, AH, confirms depression. She has difficulty sleeping this evening and is up and down out of her bed, walking the halls on occasion. S/I, H/I: Denies A/VH: N/A Sleep: Broken sleep, see sleep assessment ADL's: Ambulates with steady gait using FWW. Independent. Group attendance: No groups this shift Were meds taken: Yes Any med S/E: None Mental Status Exam Appearance: Clean, well groomed, visible bilateral tremors in hands Eye contact: Good Behavior: Cooperative with fatigue Speech: Soft, WNL Mood: Pleasant Affect: Blunted Thought process: Tearful, worried about current state and getting better Thought Content: Wants to go somewhere to live that she does not have to be alone. Cognition: A&O X3 Insight: Fair Judgment: Fair Interventions PRN's used: [place] X1. Tylenol 650mg PO Therapeutic interventions: 1:1 assessment, maintained a safe and therapeutic environment, ensured contract for safety, provided medication education, encouraged independent performance of ADLs and prescribed PT exercises, monitored for s/s of withdrawal, maintained fall precautions, obtained ordered U/A, monitored pain level and need for intervention, and maintained Q 15 min safety checks. Restraints/seclusion/emergency medication: N/A Justification of Continued Inpatient Treatment: Pt. requires a safe and supportive environment and interruption of current crisis. She will possibly discharge to [facility].
[2018-10-06] MEDS: hydrOXYzine 25 MG tablet PO SCH ×3 (00:35→19:31)
[2018-10-06] MEDS: OLANZapine 2.5MG tablet PO PRN ×2 (00:45→22:09)
[2018-10-06] MEDS: HYDROcodone/acetaminophen 10/325mg tab PO PRN ×3 (05:18→20:58)
[2018-10-06] MEDS: propranolol 10mg tablet PO SCH ×2 (08:00→20:00)
[2018-10-06] MEDS: cyanocobalamin 500mcg tablet PO SCH (08:06)
[2018-10-06] MEDS: lactobacillus rhamnosus 10,000 MMU CELLS/CAPSULE PO SCH ×2 (08:06→20:54)
[2018-10-06] MEDS: thiamine 100mg tablet PO SCH (08:06)
[2018-10-06] MEDS: multivitamins, therapeutics tablet PO SCH (08:06)
[2018-10-06] MEDS: duloxetine 30mg CAPSULE.DR PO SCH (08:06)
[2018-10-06] MEDS: pantoprazole 40mg Tablet.DR PO SCH ×2 (08:06→20:56)
[2018-10-06] MEDS: levoTHYROXINE 75mcg tablet PO SCH (08:06)
[2018-10-06] MEDS: cefpodoxime proxetil 100mg tablet PO SCH ×2 (08:07→16:40)
[2018-10-06] MEDS: folic acid 1mg tablet PO SCH (08:07)
[2018-10-06] MEDS: gabapentin 300mg capsule PO SCH ×3 (08:24→20:57)
[2018-10-06] MEDS: nicotine 21mg patch - 24 hr TD SCH (08:26)
[2018-10-06] MEDS: LORazepam 1 MG tablet PO PRN (12:56)
[2018-10-06] MEDS ORDERED: LORazepam 1 MG tablet PO ONE (16:05)
--- NOTE | 2018-10-06 17:33 | NUR ---
Nursing Progress Note: Legal hold: Voluntary Client on voluntary DTS Report received from nurse with use of SBAR: BIBIANA Holt Why are they here: The patient was brought to the ER after her son called EMS r/t depression with S/I. The c/o severe depression and anxiety r/t the anniversary of the of her . She reports loss of appetite, weight loss, and drinks beer 2-4 quarts daily starting in the morning, BAL 0.178 at admit. She is a former client of [facility]. Patient has chronic bilateral tremors to her arms and chronic pain r/t osteoarthritis, scoliosis, and osteoporosis. She has a home in [place] to return to, "but it's too much house for me. I just live in one room, my bedroom." She has a possible history of atrial fibrillation with arrhythmia, recently received a echocardiogram, which showed mild regurgitation. She has an upcoming Unindentured Apprentice appointment with Dr. Reich on 10/14/18. Pt. is currently on ABT r/t UTI. Assessment What has happened this shift: Patient is observed sleeping at shift change, no apparent distress observed. When she awakens her HR is low, 49 BPM. Patient denies confusion or dizziness, neither observed. After patient walks around a bit and joins others for breakfast her HR manually is 51 BPM. Patient takes all medications without issue, RN held Inderal. Patient reports increased amount of pain in her low back and neck, 02/28. Patient is observed walking without discomfort and conversating with others during breakfast. Patient leaves group early and states that she is overwhelmingly depressed. She is tearful as she discusses the issues in her life that are causing turmoil. RN allows patient the time she needs to discuss her feelings and patient reports thankfulness and that she feels better. S/I, H/I: none reported A/VH: none reported Sleep: 4hrs NOC ADL's: Ambulates with steady gait using FWW. showered today. Group attendance: yes, left early Were meds taken: Yes Any med S/E: None reported, no IMs or tremors observed Mental Status Exam Appearance: Clean, well groomed, visible bilateral tremors in hands Eye contact: Good Behavior: Cooperative with fatigue Speech: Soft tone, normal rate and rhythm Mood: anxious, depressed but friendly Affect: restricted but congruent with mood Thought process: Tearful, worried about current state and getting better Thought Content: depression and hardships Cognition: A&O X3 Insight: Fair Judgment: Fair Interventions PRN's used: Ativan for anxiety, Bernard X1 for pain Therapeutic interventions: 1:1 therapeutic assessment, maintained safe therapeutic milieu, encouraged independent ADLs, provided active listening with positive feedback, provided medication education as needed, monitored for change in behavior and needed intervention. Q 15 min safety checks. Restraints/seclusion/emergency medication: N/A Justification of Continued Inpatient Treatment: Continued therapeutic support and medication management needed to provide stabilization, and prevent decompensation decreasing risk to patient for readmittance to in-patient unit.She will possibly discharge to [facility].
[2018-10-06 19:00] VITALS: BP 111/90
[2018-10-06] MEDS: olanzapine 10mg tablet PO SCH (20:57)
[2018-10-06] MEDS: LORazepam 1 MG tablet PO SCH (20:57)
[2018-10-06] MEDS: mag hydrox/Alum hydrox/simeth 30ml oral suspension PO PRN (21:07)
--- NOTE | 2018-10-07 02:26 | NUR ---
Nursing Progress Note: Legal hold: Voluntary Client on voluntary DTS Report received from nurse with use of SBAR: BIBIANA Locke Why are they here: The patient was brought to the ER after her son called EMS r/t depression with S/I. The c/o severe depression and anxiety r/t the anniversary of the of her . She reports loss of appetite, weight loss, and drinks beer 2-4 quarts daily starting in the morning, BAL 0.178 at admit. She is a former client of [facility]. Patient has chronic bilateral tremors to her arms and chronic pain r/t osteoarthritis, scoliosis, and osteoporosis. She has a home in [place] to return to, "but it's too much house for me. I just live in one room, my bedroom." She has a possible history of atrial fibrillation with arrhythmia, recently received a echocardiogram, which showed mild regurgitation. She has an upcoming Exercise Instruct appointment with Dr. Reich on 10/14/18. Pt. is currently on ABT r/t UTI. Assessment What has happened this shift: Patient is up and around walking the unit with her walker this shift. She interacts appropriately with others and is friendly. She agrees to a 1:1 assessment at her bedside. She states "It was a bad day, my medicines were messed up." She said that her anxiety was a 8/10 all day but is now a 3/10 because "my medications got fixed." She expresses that her back pain is a 9/10, and requests a Stowell. She is given a Stowell with her HS medications. She gets up throughout the night requesting her Stowell and is upset because she thinks her Stowell are scheduled sooner, and that she can have them more frequently. She is educated on her medication schedule at this time, and informed that her Stowell is QID. She denied SI, HI, VH, AH. She does confirm depression. She reports no side effects to medications. S/I, H/I: Denies A/VH: Denies Sleep: Currently sleeping, see sleep assessment ADL's: Ambulates with steady gait using FWW. Group attendance: No groups this shift Were meds taken: Yes Any med S/E: None reported Mental Status Exam Appearance: Clean, well groomed, visible bilateral tremors in hands Eye contact: Good Behavior: Cooperative with fatigue Speech: Soft tone, normal rate and rhythm Mood: Depressed Affect: Congruent with mood Thought process: Linear Thought Content: Treatment Cognition: A&O X3 Insight: Fair Judgment: Fair Interventions PRN's used: [place] X1 for pain Therapeutic interventions: 1:1 therapeutic assessment, maintained safe therapeutic milieu, encouraged independent ADLs, provided active listening with positive feedback, provided medication education as needed, monitored for change in behavior and needed intervention. Q 15 min safety checks. Restraints/seclusion/emergency medication: N/A Justification of Continued Inpatient Treatment: Continued therapeutic support and medication management needed to provide stabilization, and prevent decompensation decreasing risk to patient for readmittance to in-patient unit.She will possibly discharge to [facility].
[2018-10-07] MEDS: HYDROcodone/acetaminophen 10/325mg tab PO PRN ×4 (05:42→20:49)
[2018-10-07] MEDS: folic acid 1mg tablet PO SCH (07:33)
[2018-10-07] MEDS: multivitamins, therapeutics tablet PO SCH (07:33)
[2018-10-07] MEDS: pantoprazole 40mg Tablet.DR PO SCH ×2 (07:34→20:28)
[2018-10-07] MEDS: levoTHYROXINE 75mcg tablet PO SCH (07:34)
[2018-10-07] MEDS: lactobacillus rhamnosus 10,000 MMU CELLS/CAPSULE PO SCH ×2 (07:35→20:45)
[2018-10-07] MEDS: LORazepam 1 MG tablet PO SCH ×3 (07:35→20:49)
[2018-10-07] MEDS: gabapentin 300mg capsule PO SCH ×2 (07:35→12:54)
[2018-10-07] MEDS: duloxetine 30mg CAPSULE.DR PO SCH (07:35)
[2018-10-07] MEDS: cefpodoxime proxetil 100mg tablet PO SCH ×2 (07:36→16:42)
[2018-10-07] MEDS: cyanocobalamin 500mcg tablet PO SCH (07:36)
[2018-10-07] MEDS: thiamine 100mg tablet PO SCH (07:36)
[2018-10-07] MEDS: nicotine 21mg patch - 24 hr TD SCH (07:43)
[2018-10-07 07:52] VITALS: BP 103/56
[2018-10-07] MEDS: propranolol 10mg tablet PO SCH ×2 (08:00→16:43)
[2018-10-07] MEDS: hydrOXYzine 25 MG tablet PO SCH ×2 (12:03→19:51)
--- NOTE | 2018-10-07 12:48 | NUR ---
Initial: Pt admit to [facility] for depression. Pt currently on a regular diet with documented PO intake 100% meeting nutrient needs. [facility] 10/04. Pt currently receiving Thiamine, Folic acid, and MVI for Etoh abuse. No edema or wounds. No nutrition diagnosis at this time. Will continue to follow. Recommendations: 1) Continue with regular diet 2) Continue Thiamine and folic acid given Etoh abuse 3) Weekly wt Addendum: 10/07/18 at [address] Amended: Links added.
--- NOTE | 2018-10-07 13:00 | NUR ---
DISCHARGE PLANNING: (Late Entry) Pt met w/ Art from the [facility] and determined she was not going into In [facility] and it would be too difficult for her to get off of her pain medication. Her plain now is that her daughter said she could come stay with her until she finds an assisted living place. However a short time later pt changed her plain again to return home to go through her things to prepare for packing up and moving out into a small apartment. Updated Dr. Palma on pt's living arrangement plans. Dr. Palma asked that I speak w/ the pt's children to discuss discharge and placement details. Asked Dr. Palma if he wanted pt to have a psychiatrist. He said he wanted to first find out if her PCP, Dr. Conner would work w/ him to keep her on the medications he has her on. Phoned Dr. Conner' office & spoke w/ radiology receptionist, explained situation, gave her Dr. Salazar contact info, she said Dr. Conner would likely phone him on Sat. Made plans to meet w/ pt and her son, Osvaldo and her daughter, Kurt Wednesday during visiting hours. Notified Dr. Palma that Dr. Conner should be contacting him and of my plans to meet w/ pt's children. Chrissy Espinoza, [facility]
[2018-10-07 15:44] VITALS: BP 119/59
--- NOTE | 2018-10-07 17:33 | NUR ---
Nursing Progress Note: Legal hold: Voluntary Client on voluntary DTS Report received from nurse with use of SBAR: Jerica Dangelo RN Why are they here: The patient was brought to the ER after her son called EMS r/t depression with S/I. The c/o severe depression and anxiety r/t the anniversary of the of her . She reports loss of appetite, weight loss, and drinks beer 2-4 quarts daily starting in the morning, BAL 0.178 at admit. She is a former client of [facility]. Patient has chronic bilateral tremors to her arms and chronic pain r/t osteoarthritis, scoliosis, and osteoporosis. She has a home in [place] to return to, "but it's too much house for me. I just live in one room, my bedroom." She has a possible history of atrial fibrillation with arrhythmia, recently received a echocardiogram, which showed mild regurgitation. She has an upcoming Thread Clipper appointment with Dr. Reich on 10/14/18. Pt. is currently on ABT r/t UTI. Assessment What has happened this shift: Patient is observed walking the halls with FWW at change of shift. Her affect is bright, she states she slept well and is feeling better today. She joins others in the group room for breakfast. Patient states that today has been the best day she has had in a year. She is active, walking the halls and attending all groups. She is calm and friendly to others, courteous and kind. She has a plan to live with her daughter for a little bit until she can find a smaller place of her own. She expresses excitement. *Monitor bradycardia, vitals q3hrs. Decrease propranolol to 15mg BID, in the morning and at 1700. Hold if HR below 50 or patient is symptomatic. S/I, H/I: none reported A/VH: none reported Sleep: 5.5hrs NOC ADL's: Ambulates with steady gait using FWW. Group attendance: yes Were meds taken: Yes Any med S/E: None reported, no IMs or tremors observed Mental Status Exam Appearance: Clean, well groomed, visible bilateral tremors in hands Eye contact: Good Behavior: Cooperative with fatigue Speech: Soft tone, normal rate and rhythm Mood: improved, hopeful and at times happy Affect: restricted but congruent with mood Thought process: linear, goal directed Thought Content: focused on life improvements Cognition: A&O X3 Insight: Fair Judgment: Fair Interventions PRN's used: [place] X2 for pain Therapeutic interventions: 1:1 therapeutic assessment, maintained safe therapeutic milieu, encouraged independent ADLs, provided active listening with positive feedback, provided medication education as needed, monitored for change in behavior and needed intervention. Q 15 min safety checks. Restraints/seclusion/emergency medication: N/A Justification of Continued Inpatient Treatment: Continued therapeutic support and medication management needed to provide stabilization, and prevent decompensation decreasing risk to patient for readmittance to in-patient unit.She will possibly discharge to [facility].
[2018-10-07 19:00] VITALS: BP 121/82
[2018-10-07 20:28] VITALS: BP 121/82
[2018-10-07] MEDS: gabapentin 400mg capsule PO SCH (20:29)
[2018-10-07] MEDS: olanzapine 10mg tablet PO SCH (20:29)
[2018-10-07] MEDS: mag hydrox/Alum hydrox/simeth 30ml oral suspension PO PRN (20:44)
[2018-10-07] MEDS: OLANZapine 2.5MG tablet PO PRN (21:55)
[2018-10-07 22:00] VITALS: BP 115/60
[2018-10-08 01:00] VITALS: BP 110/56
[2018-10-08] MEDS: ibuprofen 200mg tablet PO PRN (01:06)
--- NOTE | 2018-10-08 01:58 | NUR ---
Nursing Progress Note: Legal hold: Voluntary Client on voluntary DTS Report received from nurse with use of SBAR: BIBIANA Locke Why are they here: The patient was brought to the ER after her son called EMS r/t depression with S/I. The c/o severe depression and anxiety r/t the anneversary of the of her . She reports loss of appetite, weight loss, and says that she drinks beer daily starting in the morning, approximately 2-4 quarts/day. Her BAL was 0.178 at admit, continues on detox protocol. She is a former client of [facility]. The patient has chronic bilateral tremors to her arms and chronic pain r/t osteoarthritis, scoliosis, and osteoporosis. She has a home in [place] to return to, "but it's too much house for me. I just live in one room, my bedroom." She has a possible history of atrial fibrillation with arrhythmia, recently received a echocardiogram, which showed mild regurgitation. She has an upcoming Home Furnishings Sales Representative appointment with Dr. Reich on 10/14/18. Pt. is currently on ABT r/t UTI. Assessment What has happened this shift: Pt. up in the Group Room at the beginning of the shift, completing puzzles with others and interacting appropriately. She continues to exhibit bilateral tremulousness in upper extremities and uses a FWW to ambulate, fall precautions remain in place. Pt. presents as cooperative, restless, and very animated, some s/s of hypomania at times. Scheduled Atrax administered and pt. reports her anxiety is much better, she denies depression or S/I. Pt. reports she feels her medications are working well, states, "He took me off the medicines that were making my depression worse! Dr. Baker called my doctor to make sure he agrees not to change any of my medications." Pt. denies any desire to use alcohol again, states, "I can't even stand the smell of it!" She repots she does not need alcohol anymore now that her anxiety and pain are under control (she feels the QID Gracey is effective with rest or PRN Motrin in between). Pt. reports she has has been sleeping, eating well, and going to groups. Pt. identifies her coping mechanisms as helping others and rest. Per AM shift report, Q 3 hr. V/S are being obtained in order to monitor for bradycardia, VS have been WNL, however pt. reports some numbness in her bilateral upper and lower extremities which she believes to be r/t decreased HR. Will endorse to AM shift and continue to monitor. Pt. also exhibits slight non-pitting edema in her rt. foot. Foot elevated on pillows at HS and pt. voices content, will continue to monitor. S/I, H/I: Denies A/VH: N/A Sleep: Reports she has been sleeping well, however requests PRN Zyprexa r/t insomnia, administered with effectiveness. ADL's: Ambulates with steady gait using FWW, pt. continues to exhibit bilateral tremulousness, fall precautions in place Group attendance: Pt. reports she attends all groups Were meds taken: Yes Any med S/E: Per AM shift report, Q 3 hr. V/S are being obtained in order to monitor for bradycardia, VS have been WNL, however pt. reports some numbness in her bilateral upper and lower extremities. Pt. also exhibits slight non-pitting edema in her rt. foot. Mental Status Exam Appearance: Pt. appears frail and older than chronological age, however neat and appropriately dressed in hospital attire. She continues to exhibit bilateral tremulousness in upper extremities. Eye contact: Good Behavior: Cooperative with restlessness. Some s/s of hypomania Speech: WNL, rapid and hyperverbal at times Mood: Pleasant Affect: Animated Thought process: Goal directed with some racing thoughts Thought Content: Perseveration regarding possible bradycardia and numbness in bilateral extremities. Cognition: A&O Insight: Fair to good Judgment: Fair to good Interventions PRN's used: Gracey X1, Motrin X1, and Zyprexa for insomnia Therapeutic interventions: Provided active listening, maintained and safe and therapeutic environment, ensured contract for safety, provided medication eduction, encouraged independent performance of ADLs and prescribed PT exercises, monitored for s/s of withdrawal, maintained fall precautions, performed Q 3 hr V/S to monitor for bradycardia, elevated rt. foot r/t edema, monitored pain level and need for intervention, and maintained Q 15 min safety checks. Restraints/seclusion/emergency medication: N/A Justification of Continued Inpatient Treatment: Pt. requires a safe and supportive environment and continued medication adjustments. She is hoping to discharge to an assisted living facility.
[2018-10-08 04:04] VITALS: BP 102/54
[2018-10-08] MEDS: cyanocobalamin 500mcg tablet PO SCH (07:52)
[2018-10-08] MEDS: levoTHYROXINE 75mcg tablet PO SCH (07:52)
[2018-10-08] MEDS: gabapentin 400mg capsule PO SCH ×2 (07:52→20:44)
[2018-10-08] MEDS: LORazepam 1 MG tablet PO SCH ×3 (07:52→20:45)
[2018-10-08] MEDS: lactobacillus rhamnosus 10,000 MMU CELLS/CAPSULE PO SCH ×2 (07:52→20:45)
[2018-10-08] MEDS: cefpodoxime proxetil 100mg tablet PO SCH ×2 (07:52→18:11)
[2018-10-08] MEDS: multivitamins, therapeutics tablet PO SCH (07:53)
[2018-10-08] MEDS: pantoprazole 40mg Tablet.DR PO SCH ×2 (07:53→20:46)
[2018-10-08] MEDS: duloxetine 30mg CAPSULE.DR PO SCH (07:53)
[2018-10-08] MEDS: thiamine 100mg tablet PO SCH (07:53)
[2018-10-08 08:00] VITALS: BP 112/73
[2018-10-08] MEDS: propranolol 10mg tablet PO SCH ×2 (08:00→17:00)
[2018-10-08] MEDS: nicotine 21mg patch - 24 hr TD SCH (08:02)
[2018-10-08] MEDS: folic acid 1mg tablet PO SCH (08:02)
[2018-10-08] MEDS: HYDROcodone/acetaminophen 10/325mg tab PO PRN ×4 (08:39→20:44)
[2018-10-08] MEDS: hydrOXYzine 25 MG tablet PO SCH ×2 (12:12→19:00)
--- NOTE | 2018-10-08 13:19 | NUR ---
DISCHARGE PLANNING: Met w/ pt's daughter, Kurt Rodriguez and son, Osvaldo Bragg. They were very concerned that once pt was discharged her PCP, Dr. Conner would change all her meds and she would go down downhill as happened w/her 2 previous stays. Explained considerations the was looking at. Also discussed why she did not go to [place] [facility]. When discussing discharge pt said she thought she would be transferred to the medical floor due to her heart but not the case as of now. Daughter did confirm pt does have a initial appt w/ Water Pollution Scientist - on 10/12 or 10/14. Son said they found 2 places and their plain was to move pt directly from hospital to placement. Pt tried to suggest Sr. appts in [place] and daughter said she called and she is not even on the wait list any more. She then suggested she go home to go thru her things...kids became tense. This appeals writer encouraged discussion, they both said they were uncomfortable w/ her returning home to her & why: didn't trust her, begin drinking, refuse to leave, been down this road before, lies, etc. There was some confrontation/reality, very civil and loving. Pt agreed to go to wherever they choose. Asked how soon pt could d/c said as early as Wednesday but would depend on meds, stability, up to Dr. they thought would be longer, unsure they could have a place set up for her that quickly w/ Holiday. Asked she could go ahead and stay w/ her a couple days since she said she could stay w/her if she needed to for a bit. Both daughter & son made it clear pt could not stay w/ them as the past had been gone badly. Also discussed pt's concerns of being a burden to them, moving, time off wk, so on they discussed and worked out. All agreed they had a stable d/c plain w/ no surprises, will wait on finding out about meds & Dr. Conner. Spoke privately in my office w/ Osvaldo & Kurt and gave them some additional resources and. placement options. They both emphasized how serious pt's drinking was and that she is minimizing it and that they are sure she is now wanting to go home because she is wanting to drink again. They are very, very concerned she will start drinking again. They describe her as smart, resourceful and stubborn. I also explained only she can decide to quite. She can't be forced, even if they try to have her watched 11/01. They agreed she'd have it snuck in. I offered to give community support resources if needed. They requested Dr. Palma call them to discuss medication, her doctor, will she need a psychiatrist and D/C. Osvaldo's # [phone] & Kurt's #[phone]. [address] Palma. Chrissy Espinoza, [facility]
--- NOTE | 2018-10-08 18:35 | NUR ---
Nursing Progress Note: Legal hold: Voluntary Client on voluntary DTS Report received from nurse with use of SBAR: Jerica Dangelo RN Why are they here: The patient was brought to the ER after her son called EMS r/t depression with S/I. The c/o severe depression and anxiety r/t the anniversary of the of her . She reports loss of appetite, weight loss, and drinks beer 2-4 quarts daily starting in the morning, BAL 0.178 at admit. She is a former client of [facility]. Patient has chronic bilateral tremors to her arms and chronic pain r/t osteoarthritis, scoliosis, and osteoporosis. She has a home in [place] to return to, "but it's too much house for me. I just live in one room, my bedroom." She has a possible history of atrial fibrillation with arrhythmia, recently received a echocardiogram, which showed mild regurgitation. She has an upcoming Insurance Producer appointment with Dr. Reich on 10/14/18. Pt. is currently on ABT r/t UTI. Assessment What has happened this shift: Patient is observed walking the halls with FWW at change of shift. She reports that she is doing well today and will have a visit from her son and daughter. She states that her foot is not hurting today and no swelling observed. She attends groups and remains friendly to others thorughout the day. S/I, H/I: none reported A/VH: none reported Sleep: states she did not sleep well last night, did not sleep during the day ADL's: Ambulates with steady gait using FWW. Group attendance: yes Were meds taken: Yes Any med S/E: None reported, no IMs or tremors observed Mental Status Exam Appearance: Clean, well groomed, visible bilateral tremors in hands Eye contact: direct Behavior: Cooperative friendly, fatigued Speech: Soft tone, normal rate and rhythm Mood: hopeful and happy Affect: restricted with brightening Thought process: linear, goal directed Thought Content: focused on life improvements Cognition: A&O X3 Insight: Fair Judgment: Fair Interventions PRN's used: [place] X3 for pain Therapeutic interventions: 1:1 therapeutic assessment, maintained safe therapeutic milieu, encouraged independent ADLs, provided active listening with positive feedback, provided medication education as needed, monitored for change in behavior and needed intervention. Q 15 min safety checks. Restraints/seclusion/emergency medication: N/A Justification of Continued Inpatient Treatment: Continued therapeutic support and medication management needed to provide stabilization, and prevent decompensation decreasing risk to patient for readmittance to in-patient unit.She will possibly discharge to [facility].
[2018-10-08 19:00] VITALS: BP 113/54
[2018-10-08] MEDS: gabapentin 100mg capsule PO SCH (20:45)
[2018-10-08] MEDS: olanzapine 10mg tablet PO SCH (20:46)
[2018-10-08] MEDS ORDERED: gabapentin 400mg capsule PO SCH (21:00)
[2018-10-09] MEDS: OLANZapine 2.5MG tablet PO PRN (01:52)
[2018-10-09] MEDS: HYDROcodone/acetaminophen 10/325mg tab PO PRN ×4 (01:53→20:25)
--- NOTE | 2018-10-09 02:39 | NUR ---
Nursing Progress Note: Legal hold: Voluntary Client on voluntary DTS Report received from nurse with use of SBAR: BIBIANA Locke Why are they here: The patient was brought to the ER after her son called EMS r/t depression with S/I. The c/o severe depression and anxiety r/t the anneversary of the of her . She reports loss of appetite, weight loss, and says that she drinks beer daily starting in the morning, approximately 2-4 quarts/day. Her BAL was 0.178 at admit, continues on detox protocol. She is a former client of [facility]. The patient has chronic bilateral tremors to her arms and chronic pain r/t osteoarthritis, scoliosis, and osteoporosis. She has a home in [place] to return to, "but it's too much house for me. I just live in one room, my bedroom." She has a possible history of atrial fibrillation with arrhythmia, recently received a echocardiogram, which showed mild regurgitation. She has an upcoming Buffing Wheel Raker appointment with Dr. Reich on 10/14/18. Pt. is currently on ABT r/t UTI. Assessment What has happened this shift: the patient was seen in her room at bedside for 1:1. Her gait appears to be getting stronger. She still occasionally uses her FWW. She reports that "my anxiety is gone, I am so happy." The patient states that her appetite is good, sleeping is good, and medications are good; "as long as my PCP doesn't change them." She reports that Physical therapy has seen her and given her some exercises to do. She has not requested anything for anxiety tonight, her main problem now is neck and back pain. Her VS have been normal, no Bradycardia noted. The patient states that she's done with alcohol, and with her anxiety and pain controlled, she has a much better chance at staying sober. She has been sleeping since HS med pass. S/I, H/I: Denies A/VH: Denies Sleep: Reports good sleep. ADL's: Independent, uses FWW for ambulation. Group attendance: No groups at night. Were meds taken: Yes Any med S/E: None noted or observed. Mental Status Exam Appearance: Dressed in red pajamas. Eye contact: Good Behavior: Relaxing in bed tonight Speech: Clear, hyperverbal at times. Mood: Pleasant Affect: Animated Thought process: linear, goal directed. Thought Content: Focused on discharge. Cognition: A&O Insight: Fair to good Judgment: Fair to good Interventions PRN's used: [place] X2, Zyprexa for insomnia. Therapeutic interventions: Provided active listening, maintained and safe and therapeutic environment, ensured contract for safety, provided medication eduction, encouraged independent performance of ADLs and prescribed PT exercises, monitored for s/s of withdrawal, maintained fall precautions, performed Q 3 hr V/S to monitor for bradycardia, elevated rt. foot r/t edema, monitored pain level and need for intervention, and maintained Q 15 min safety checks. Restraints/seclusion/emergency medication: N/A Justification of Continued Inpatient Treatment: Pt. requires a safe and supportive environment and continued medication adjustments. She is hoping to discharge to an assisted living facility.
[2018-10-09 07:00] VITALS: BP 125/59
[2018-10-09] MEDS: duloxetine 30mg CAPSULE.DR PO SCH (08:40)
[2018-10-09] MEDS: folic acid 1mg tablet PO SCH (08:40)
[2018-10-09] MEDS: cyanocobalamin 500mcg tablet PO SCH (08:40)
[2018-10-09] MEDS: thiamine 100mg tablet PO SCH (08:41)
[2018-10-09] MEDS: cefpodoxime proxetil 100mg tablet PO SCH (08:42)
[2018-10-09] MEDS: LORazepam 1 MG tablet PO SCH ×3 (08:42→20:26)
[2018-10-09] MEDS: multivitamins, therapeutics tablet PO SCH (08:42)
[2018-10-09] MEDS: pantoprazole 40mg Tablet.DR PO SCH ×2 (08:42→20:25)
[2018-10-09] MEDS: lactobacillus rhamnosus 10,000 MMU CELLS/CAPSULE PO SCH ×2 (08:43→20:26)
[2018-10-09] MEDS: ibuprofen 200mg tablet PO PRN ×2 (08:58→17:11)
[2018-10-09] MEDS: propranolol 10mg tablet PO SCH ×2 (08:58→17:00)
[2018-10-09] MEDS: gabapentin 400mg capsule PO SCH ×3 (09:00→20:26)
[2018-10-09] MEDS: nicotine 21mg patch - 24 hr TD SCH (09:08)
[2018-10-09] MEDS: gabapentin 100mg capsule PO SCH ×3 (09:08→20:26)
[2018-10-09] MEDS: levoTHYROXINE 75mcg tablet PO SCH (09:08)
[2018-10-09] MEDS: hydrOXYzine 25 MG tablet PO SCH ×2 (11:04→20:26)
--- NOTE | 2018-10-09 13:24 | NUR ---
Nursing Progress Note: Legal hold: Voluntary Client on voluntary DTS Report received from Fatoumata, Charge Nurse with use of SBAR: Why are they here: The patient was brought to the ER after her son called EMS r/t depression with S/I. The c/o severe depression and anxiety r/t the anniversary of the of her . She reports loss of appetite, weight loss, and says that she drinks beer daily starting in the morning, approximately 2-4 quarts/day. Her BAL was 0.178 at admit, continues on detox protocol. She is a former client of [facility]. The patient has chronic bilateral tremors to her arms and chronic pain r/t osteoarthritis, scoliosis, and osteoporosis. She has a home in [place] to return to, "but it's too much house for me. I just live in one room, my bedroom." She has a possible history of atrial fibrillation with arrhythmia, recently received a echocardiogram, which showed mild regurgitation. She has an upcoming Manager Of Pharmacy appointment with Dr. Reich on 10/14/18. Pt. is currently on ABT r/t UTI. Assessment What has happened this shift: Patient was walking in hallway at shift change. Reported sleeping well. Denies depression states her children are looking for an apartment for her and she is happy to move from the house she is renting because the house and yard are too much for her to maintain. She seems to have a lot of jose r when caring for others. She takes care of her roommate (placed a cool cloth on her head) and shared how after her she immediately began to care for his sister, when she , she felt lost. Patient is trying to limit her intake of opioids for pain and was complaining of pain 8/10 from late morning through early afternoon. Provided with a warm blanket to rest on. Reported to have bilateral foot swelling, none was appreciated during assessment. She states it improves if she elevates feet at night. Ambulates using a FWW, gait is steady. Eating meals in community room and attending group. Phoned her family to wish them a happy Easter. S/I, H/I: Denies A/VH: Denies Sleep: Reports good sleep. ADL's: Independent, uses FWW for ambulation. Group attendance: yes Were meds taken: Yes Any med S/E: None noted or observed. Mental Status Exam Appearance: showered, clean scrub bottoms with clean t-shirt. Eye contact: Good Behavior: Unable to sit, states due to pain, better when moving. Speech: Clear, Mood: Pleasant Affect: congruent with mood Thought process: linear, goal directed. Thought Content: Focused on discharge. Cognition: A&O Insight: Fair to good Judgment: Fair to good Interventions PRN's used: [place] X2. Therapeutic interventions: Provided active listening, maintained and safe and therapeutic environment, ensured contract for safety, provided medication eduction, encouraged independent performance of ADLs and prescribed PT exercises, monitored for s/s of withdrawal, maintained fall precautions, monitored pain level and need for intervention, and maintained Q 15 min safety checks. Restraints/seclusion/emergency medication: N/A Justification of Continued Inpatient Treatment: Pt. requires a safe and supportive environment and continued medication adjustments. She is hoping to discharge to an assisted living facility.
[2018-10-09 17:00] VITALS: BP 111/58
[2018-10-09 19:26] VITALS: BP 118/88
[2018-10-09] MEDS: olanzapine 10mg tablet PO SCH (20:30)
--- NOTE | 2018-10-10 03:18 | NUR ---
Nursing Progress Note: Legal hold: Voluntary Client on voluntary DTS Report received from nurse with use of SBAR: BIBIANA Maxwell Why are they here: The patient was brought to the ER after her son called EMS r/t depression with S/I. The c/o severe depression and anxiety r/t the anniversary of the of her . She reports loss of appetite, weight loss, and says that she drinks beer daily starting in the morning, approximately 2-4 quarts/day. Her BAL was 0.178 at admit, continues on detox protocol. She is a former client of [facility]. The patient has chronic bilateral tremors to her arms and chronic pain r/t osteoarthritis, scoliosis, and osteoporosis. She has a home in [place] to return to, "but it's too much house for me. I just live in one room, my bedroom." She has a possible history of atrial fibrillation with arrhythmia, recently received a echocardiogram, which showed mild regurgitation. She has an upcoming Accounts Receivable Analyst appointment with Dr. Reich on 10/14/18. Pt. is currently on ABT r/t UTI. Assessment What has happened this shift: The patient was seen in her room at bedside for 1:1. She reports that she had a good day and continues to improve. The patient has shown no s/s of anxiety this shift, and has not requested any Benzo. She reports that she is probably as good as she's going to get. The patient continues to have tremors to both arms that have diminished some since her admit here. She will continue to have pain in her back and neck that she has treated with alcohol in the past. She is free from alcohol at this point, and states that she won't go back to it. The patient expects to DC home this week. She has an appointment with Dr. Reich this week that she shouldn't miss. S/I, H/I: Denies A/VH: Denies Sleep: Reports good sleep. ADL's: Independent, uses FWW for ambulation. Group attendance: No groups at night. Were meds taken: Yes Any med S/E: None noted or observed. Mental Status Exam Appearance: Disheveled hair, wearing street clothes. Eye contact: Good Behavior: Lying in bed all shift. Speech: Clear, normal rate/rhythm. Mood: Pleasant Affect: Blunted. Thought process: linear, goal directed. Thought Content: Focused on discharge. Cognition: A&O Insight: Fair to good Judgment: Fair to good Interventions PRN's used: [place] X1. Therapeutic interventions: Provided active listening, maintained and safe and therapeutic environment, ensured contract for safety, provided medication eduction, encouraged independent performance of ADLs and prescribed PT exercises, monitored for s/s of withdrawal, maintained fall precautions, performed Q 3 hr V/S to monitor for bradycardia, elevated rt. foot r/t edema, monitored pain level and need for intervention, and maintained Q 15 min safety checks. Restraints/seclusion/emergency medication: N/A Justification of Continued Inpatient Treatment: Pt. requires a safe and supportive environment and continued medication adjustments. She is hoping to discharge to an assisted living facility.
[2018-10-10] MEDS: HYDROcodone/acetaminophen 10/325mg tab PO PRN ×4 (03:40→20:21)
[2018-10-10 07:39] VITALS: BP 117/56
[2018-10-10] MEDS: gabapentin 100mg capsule PO SCH ×2 (07:50→13:10)
[2018-10-10] MEDS: lactobacillus rhamnosus 10,000 MMU CELLS/CAPSULE PO SCH ×2 (07:51→20:19)
[2018-10-10] MEDS: levoTHYROXINE 75mcg tablet PO SCH (07:51)
[2018-10-10] MEDS: multivitamins, therapeutics tablet PO SCH (07:51)
[2018-10-10] MEDS: LORazepam 1 MG tablet PO SCH ×3 (07:51→20:19)
[2018-10-10] MEDS: gabapentin 400mg capsule PO SCH ×2 (07:51→13:11)
[2018-10-10] MEDS: cyanocobalamin 500mcg tablet PO SCH (07:51)
[2018-10-10] MEDS: thiamine 100mg tablet PO SCH (07:51)
[2018-10-10] MEDS: folic acid 1mg tablet PO SCH (07:51)
[2018-10-10] MEDS: propranolol 10mg tablet PO SCH ×2 (07:52→16:17)
[2018-10-10] MEDS: duloxetine 30mg CAPSULE.DR PO SCH (07:52)
[2018-10-10] MEDS: aspirin 81mg tablet.DR PO SCH (07:52)
[2018-10-10] MEDS: pantoprazole 40mg Tablet.DR PO SCH ×2 (07:52→20:19)
[2018-10-10] MEDS: nicotine 21mg patch - 24 hr TD SCH (07:56)
[2018-10-10] MEDS: hydrOXYzine 25 MG tablet PO SCH ×2 (10:04→20:19)
--- NOTE | 2018-10-10 14:08 | NUR ---
Nursing Progress Note: Legal hold: Voluntary Client on voluntary DTS Report received from nurse with use of SBAR: BIBIANA Arias Why are they here: The patient was brought to the ER after her son called EMS r/t depression with S/I. The c/o severe depression and anxiety r/t the anniversary of the of her . She reports loss of appetite, weight loss, and says that she drinks beer daily starting in the morning, approximately 2-4 quarts/day. Her BAL was 0.178 at admit, continues on detox protocol. She is a former client of [facility]. The patient has chronic bilateral tremors to her arms and chronic pain r/t osteoarthritis, scoliosis, and osteoporosis. She has a home in [place] to return to, "but it's too much house for me. I just live in one room, my bedroom." She has a possible history of atrial fibrillation with arrhythmia, recently received a echocardiogram, which showed mild regurgitation. She has an upcoming Core Dipper appointment with Dr. Reich on 10/14/18. Assessment What has happened this shift: Pt denied depression, anxiety, SI/HI/AH/VH. She states she is looking forward to going to the place her kids found for her. Pt requested prn [place] 10/325 mg for back pain at 0753 and 1315. Pt ambulates steadily with FWW, no unsafe behaviors noted. S/I, H/I: Pt denies A/VH: Pt denies Sleep: Slept 8.5 hours per noc shift report ADL's: Independent, uses FWW for ambulation. Group attendance: Yes Were meds taken: Yes Any med S/E: None noted or reported Mental Status Exam Appearance: clean, appropriate Eye contact: Good Behavior: pleasant, cooperative Speech: Clear, normal rate/rhythm. Mood: Euthymic Affect: appropriate Thought process: linear, goal directed. Thought Content: Focused on when she can get her next Lowell Cognition: A/O X 4 Insight: Fair to good Judgment: Fair to good Interventions PRN's used: [place] 10/325 mg at 0753 and 1315 Therapeutic interventions: 1:1 assessment, medication administration/education/monitoring, O2 at night, monitoring of VS/HR, encouragement to attend groups, encouragement to perform daily exercises & ambulation, encouragement to use FWW, maintained Q 15 min safety checks. Restraints/seclusion/emergency medication: N/A Justification of Continued Inpatient Treatment: Pt seems to be stabilizing, plan is for her to discharge to an assisted living her children have arranged for her sometime this week.
[2018-10-10 16:15] VITALS: BP 110/57
[2018-10-10] MEDS: ibuprofen 200mg tablet PO PRN (16:16)
[2018-10-10] MEDS ORDERED: HYDROcodone/acetaminophen 10/325mg tab PO ONE (17:05)
[2018-10-10 19:00] VITALS: BP 94/46
[2018-10-10] MEDS: OLANZapine 2.5MG tablet PO PRN (20:20)
[2018-10-10] MEDS: gabapentin 300mg capsule PO SCH (20:20)
[2018-10-10] MEDS: olanzapine 10mg tablet PO SCH (20:23)
--- NOTE | 2018-10-10 23:07 | NUR ---
Nursing Progress Note: Legal hold: Voluntary Client on voluntary DTS Report received from nurse with use of SBAR: BIBIANA Maxwell Why are they here: The patient was brought to the ER after her son called EMS r/t depression with S/I. The c/o severe depression and anxiety r/t the anniversary of the of her . She reports loss of appetite, weight loss, and says that she drinks beer daily starting in the morning, approximately 2-4 quarts/day. Her BAL was 0.178 at admit, continues on detox protocol. She is a former client of [facility]. The patient has chronic bilateral tremors to her arms and chronic pain r/t osteoarthritis, scoliosis, and osteoporosis. She has a home in [place] to return to, "but it's too much house for me. I just live in one room, my bedroom." She has a possible history of atrial fibrillation with arrhythmia, recently received a echocardiogram, which showed mild regurgitation. She has an upcoming Mathematics Professor appointment with Dr. Reich on 10/14/18. Pt. is currently on ABT r/t UTI. Assessment What has happened this shift: The patient was finishing dinner at shift change. 1:1 completed at bedside. She is pleasant and cooperative. She's denying SI or depression. The patient reports that her biggest problem now, is going to be pain control, and having medicine for it. She had been medicating herself for pain with alcohol. She says that pain wakes her every night when her medicine wears off. the patient expects to discharge home this week, so she can make it to an appointment with a Mathematics Professor. She will then be seeing her PCP for f/u. The patient took her HS meds then went to bed. S/I, H/I: Denies A/VH: Denies Sleep: Reports good sleep. ADL's: Independent. Group attendance: No groups at night. Were meds taken: Yes Any med S/E: None noted or observed. Mental Status Exam Appearance: Disheveled hair, wearing scrub pants and black top. Eye contact: Good Behavior: Socializing with other clients. Speech: Clear, normal rate/rhythm. Mood: Pleasant Affect: Blunted. Thought process: linear, goal directed. Thought Content: Focused on discharge. Cognition: A&O Insight: Fair to good Judgment: Fair to good Interventions PRN's used: [place] X1. Therapeutic interventions: Provided active listening, maintained and safe and therapeutic environment, ensured contract for safety, provided medication eduction, encouraged independent performance of ADLs and prescribed PT exercises, monitored for s/s of withdrawal, maintained fall precautions, performed Q 3 hr V/S to monitor for bradycardia, elevated rt. foot r/t edema, monitored pain level and need for intervention, and maintained Q 15 min safety checks. Restraints/seclusion/emergency medication: N/A Justification of Continued Inpatient Treatment: Pt. requires a safe and supportive environment and continued medication adjustments. She is hoping to discharge to an assisted living facility.
[2018-10-11] MEDS: HYDROcodone/acetaminophen 10/325mg tab PO PRN ×4 (04:33→21:22)
[2018-10-11] MEDS: ibuprofen 200mg tablet PO PRN ×2 (04:33→20:47)
[2018-10-11 07:35] VITALS: BP 123/56
[2018-10-11] MEDS: cyanocobalamin 500mcg tablet PO SCH (07:36)
[2018-10-11] MEDS: folic acid 1mg tablet PO SCH (07:36)
[2018-10-11] MEDS: propranolol 10mg tablet PO SCH ×2 (07:37→17:04)
[2018-10-11] MEDS: gabapentin 300mg capsule PO SCH ×2 (07:37→12:48)
[2018-10-11] MEDS: levoTHYROXINE 75mcg tablet PO SCH (07:37)
[2018-10-11] MEDS: LORazepam 1 MG tablet PO SCH ×3 (07:37→20:47)
[2018-10-11] MEDS: duloxetine 30mg CAPSULE.DR PO SCH (07:37)
[2018-10-11] MEDS: aspirin 81mg tablet.DR PO SCH (07:37)
[2018-10-11] MEDS: pantoprazole 40mg Tablet.DR PO SCH ×2 (07:37→20:47)
[2018-10-11] MEDS: nicotine 21mg patch - 24 hr TD SCH (07:38)
[2018-10-11] MEDS: lactobacillus rhamnosus 10,000 MMU CELLS/CAPSULE PO SCH ×2 (07:38→20:47)
[2018-10-11] MEDS: multivitamins, therapeutics tablet PO SCH (07:38)
[2018-10-11] MEDS: thiamine 100mg tablet PO SCH (07:43)
[2018-10-11] MEDS: hydrOXYzine 25 MG tablet PO SCH ×2 (11:30→20:46)
--- NOTE | 2018-10-11 14:07 | NUR ---
DISCHARGE PLANNING: Spoke w/ pt's daughter, Kurt, she wanted to update pt's appt w/ recruiter manager is actual tomorrow so they rescheduled it for Wednesday, October 24 @ 9:40am and Dr. Reich's office is requesting all D/C paper work including any Cardio related testing. Updated on Dr. Conner, referral to Dr. Sanchez's office and plan to D/C - Wednesday. Discussed placement, having difficulties, taking longer then planned, expensive. Suggested calling Lianna Cash. She could really help expedite process. Also explained we could only keep pt if pt meets medical necessity. Kurt was also concerned about pt's breathing. Reassured I would talk w/ Dr. Palma and ask him to CB or call her back this afternoon or tomorrow, depending on timing. Chrissy Espinoza, ACSW
[2018-10-11] MEDS ORDERED: FLUT1BLS4 IH (16:31)
[2018-10-11] MEDS ORDERED: ALBU18HF2 INH (16:31)
--- NOTE | 2018-10-11 16:35 | NUR ---
Nursing Progress Note: Legal hold: Voluntary Client on voluntary DTS Report received from nurse with use of SBAR: BIBIANA Rivers Why are they here: The patient was brought to the ER after her son called EMS r/t depression with S/I. The c/o severe depression and anxiety r/t the anniversary of the of her . She reports loss of appetite, weight loss, and says that she drinks beer daily starting in the morning, approximately 2-4 quarts/day. Her BAL was 0.178 at admit, continues on detox protocol. She is a former client of [facility]. The patient has chronic bilateral tremors to her arms and chronic pain r/t osteoarthritis, scoliosis, and osteoporosis. She has a home in [place] to return to, "but it's too much house for me. I just live in one room, my bedroom." She has a possible history of atrial fibrillation with arrhythmia, recently received a echocardiogram, which showed mild regurgitation. She has an upcoming Safe Deposit Box Rental Clerk appointment with Dr. Reich on 10/14/18. Assessment What has happened this shift: Patient is friendly and conversational today. She states that she is feeling much better. She reports that she slept well the night before but is currently feeling groggy. She expresses concern r/t atarax making her tired, she reports she will discuss this with the doctor. She states that she is happy with the med adjustments and current medication plan, she will continue to monitor effects of medications and report how she is feeling. She stated there was no issue after taking gabapentin. She is friendly and cooperative throughout the day. In the afternoon, prescriber states that patients feet are swollen with 1+pitting edema, will d/c gabapentin and monitor for need to transfer floors. Patient is encouraged to elevate her feet. Patient up and c/o SOB, she reports she uses inhalers at home. She is returned to her bed, made comfortable and her oxygen applied. S/I, H/I: Pt denies A/VH: Pt denies Sleep: states she slept well, 7hrs NOC ADL's: Independent, uses FWW for ambulation. Group attendance: Yes Were meds taken: Yes Any med S/E: None noted or reported Mental Status Exam Appearance: clean, appropriate Eye contact: direct Behavior: friendly and cooperative Speech: Clear, normal rate/rhythm. Mood: content Affect: congruent to mood Thought process: linear, goal directed. Thought Content: Focused on how she is feeling with her medication adjustments Cognition: A/O X 4 Insight: Fair to good Judgment: Fair to good Interventions PRN's used: [place] 10/325 mg Therapeutic interventions: 1:1 therapeutic assessment, maintained safe therapeutic milieu, encouraged independent ADLs, provided active listening with positive feedback, provided medication education as needed, monitored for change in behavior and needed intervention. Q 15 min safety checks. Restraints/seclusion/emergency medication: N/A Justification of Continued Inpatient Treatment: Continued therapeutic support and medication management needed to provide stabilization, and prevent decompensation decreasing risk to patient for readmittance to in-patient unit. Patients plan is for her to discharge to an assisted living her children have arranged for her sometime this week.
[2018-10-11] MEDS ORDERED: non-formulary drug (Albuterol Sulfate (Ventolin Hfa) 2 PUFFS) INH SCH (16:50)
[2018-10-11 16:54] VITALS: BP 123/82
--- NOTE | 2018-10-11 17:04 | NUR ---
Pt C/O SOB, no chest pain, vitals WNL, bilat edema of lower extremities. Instructed to return to bed and placed on 2L O2, feet elevated. Jovitad hospitalist per Dr. Baker's request. Dr. Montana responded to jovita, no intervention needed. Trelogy and Ventolin inhalers (home meds) ordered, respiratory paged.
[2018-10-11] MEDS ORDERED: albuterol 2.5 MG/3 ML nebule NEB PRN (17:35)
[2018-10-11] MEDS ORDERED: budesonide 0.5mg/2ml UD nebule IH SCH (17:35)
[2018-10-11 19:55] VITALS: BP 117/67
[2018-10-11] MEDS: olanzapine 10mg tablet PO SCH (20:47)
[2018-10-11] MEDS: OLANZapine 2.5MG tablet PO PRN (20:47)
--- NOTE | 2018-10-12 01:35 | NUR ---
Nursing Progress Note: Legal hold: Voluntary Client on voluntary DTS Report received from nurse with use of SBAR: BIBIANA Locke Why are they here: The patient was brought to the ER after her son called EMS r/t depression with S/I. The c/o severe depression and anxiety r/t the anniversary of the of her . She reports loss of appetite, weight loss, and says that she drinks beer daily starting in the morning, approximately 2-4 quarts/day. Her BAL was 0.178 at admit, continues on detox protocol. She is a former client of [facility]. The patient has chronic bilateral tremors to her arms and chronic pain r/t osteoarthritis, scoliosis, and osteoporosis. She has a home in [place] to return to, "but it's too much house for me. I just live in one room, my bedroom." She has a possible history of atrial fibrillation with arrhythmia, recently received a echocardiogram, which showed mild regurgitation. She has an upcoming Copyman appointment with Dr. Reich on 10/14/18. Assessment What has happened this shift: Pt was sitting in bed wearing oxygen tubing with feet elevated at change of shift. 1:1 assessment completed at bedside. Pt denies s/i, "I have too many grandkids for that." Pt denies anxiety "I dont even know what anxiety is now." Pt states "Im doing good." Pt is pleasant, reports appetite is good and she feels as if she's gained 20lbs, pt states her sleep has been "excellent". Pt talks about assisted living and how she wont be going back to the place she was renting in [place]. Pt got out of bed and sat in group room w/feet elevated. Respiratory was paged again for evening tx. S/I, H/I: Pt denies A/VH: Pt denies Sleep: "excellent" ADL's: Independent, uses FWW for ambulation. Group attendance: Yes Were meds taken: Yes Any med S/E: None noted or reported Mental Status Exam Appearance: adequately groomed, wearing pajamas, has tremors in both hands Eye contact: direct Behavior: friendly and cooperative Speech: Clear, normal rate/rhythm. Mood: euthymic Affect: congruent to mood Thought process: linear, goal directed. Thought Content: Focused on how she is feeling with her medication adjustments Cognition: A/O X 4 Insight: Fair to good Judgment: Fair to good Interventions PRN's used: [place] 10/325 mg, ibuprofen Therapeutic interventions: 1:1 therapeutic assessment, maintained safe therapeutic milieu, encouraged independent ADLs, provided active listening with positive feedback, provided medication education as needed, monitored for change in behavior and needed intervention. Q 15 min safety checks. Restraints/seclusion/emergency medication: N/A Justification of Continued Inpatient Treatment: Continued therapeutic support and medication management needed to provide stabilization, and prevent decompensation decreasing risk to patient for readmittance to in-patient unit. Patients plan is for her to discharge to an assisted living her children have arranged for her sometime this week. Addendum: 10/12/18 at 0151 by Luciana Sepulveda RN nicotine patch removed
[2018-10-12] MEDS: HYDROcodone/acetaminophen 10/325mg tab PO PRN ×4 (04:55→20:46)
[2018-10-12] MEDS: ibuprofen 200mg tablet PO PRN (05:24)
[2018-10-12 07:27] VITALS: BP 119/59
[2018-10-12] MEDS: lactobacillus rhamnosus 10,000 MMU CELLS/CAPSULE PO SCH ×2 (07:39→20:46)
[2018-10-12] MEDS: cyanocobalamin 500mcg tablet PO SCH (07:39)
[2018-10-12] MEDS: propranolol 10mg tablet PO SCH ×2 (07:39→17:52)
[2018-10-12] MEDS: multivitamins, therapeutics tablet PO SCH (07:40)
[2018-10-12] MEDS: folic acid 1mg tablet PO SCH (07:40)
[2018-10-12] MEDS: pantoprazole 40mg Tablet.DR PO SCH ×2 (07:40→20:46)
[2018-10-12] MEDS: thiamine 100mg tablet PO SCH (07:40)
[2018-10-12] MEDS: aspirin 81mg tablet.DR PO SCH (07:40)
[2018-10-12] MEDS: levoTHYROXINE 75mcg tablet PO SCH (07:40)
[2018-10-12] MEDS: LORazepam 1 MG tablet PO SCH ×3 (07:40→20:44)
[2018-10-12] MEDS: duloxetine 30mg CAPSULE.DR PO SCH (07:40)
[2018-10-12] MEDS: nicotine 21mg patch - 24 hr TD SCH (07:48)
[2018-10-12] MEDS: TRELEGY ELLIPTA IH SCH (08:00)
[2018-10-12] MEDS ORDERED: non-formulary drug (Fluticasone/Umeclidin/Vilanter (Trelegy Ellipta 100-62.5-25) 1 PUFF) IH SCH (08:00)
[2018-10-12 12:05] VITALS: BP 134/65
[2018-10-12] MEDS: albuterol 2.5 MG/3 ML nebule NEB PRN ×2 (12:36→20:58)
[2018-10-12] MEDS: hydrOXYzine 25 MG tablet PO SCH ×2 (13:33→20:45)
[2018-10-12] MEDS: acetaminophen 325mg tablet PO PRN (15:20)
--- NOTE | 2018-10-12 17:40 | NUR ---
Nursing Progress Note: Legal hold: Voluntary Client on voluntary DTS Report received from nurse with use of SBAR: BIBIANA Arias Why are they here: The patient was brought to the ER after her son called EMS r/t depression with S/I. The c/o severe depression and anxiety r/t the anniversary of the of her . She reports loss of appetite, weight loss, and says that she drinks beer daily starting in the morning, approximately 2-4 quarts/day. Her BAL was 0.178 at admit, continues on detox protocol. She is a former client of [facility]. The patient has chronic bilateral tremors to her arms and chronic pain r/t osteoarthritis, scoliosis, and osteoporosis. She has a home in [place] to return to, "but it's too much house for me. I just live in one room, my bedroom." She has a possible history of atrial fibrillation with arrhythmia, recently received a echocardiogram, which showed mild regurgitation. She has an upcoming Kiln Tester appointment with Dr. Reich on 10/14/18. Assessment What has happened this shift: Patient is observed sleeping at shift change. She awakens on her own and takes all of her medications. She states that she did not sleep well last night but that she is ok with it because she will rest during the day. She is very excited about moving into a new place and she no longer feels like a burden to others. She c/o SOB, vitals taken and RT contacted. RT arrived and breathing treatment provided. Patient states that she feels much better. She remains friendly and conversational throughout the day. In the afternoon she does have bilateral, LE, +1pitting edema. Legs are elevated. She also states that staying in bed for so long has contributed to increased back pain. S/I, H/I: Pt denies A/VH: Pt denies Sleep: 6.75 hrs NOC, patient states she did not sleep well ADL's: Independent, uses FWW for ambulation. Group attendance: Yes Were meds taken: Yes Any med S/E: None noted or reported Mental Status Exam Appearance: appropriate, wearing onsies Eye contact: direct Behavior: friendly and cooperative Speech: Clear, normal rate/rhythm. Mood: content, reports she is excited Affect: congruent to mood Thought process: linear, goal directed. Thought Content: Focused on her family and her new place Cognition: A/O X 4 Insight: Fair to good Judgment: Fair to good Interventions PRN's used: [place] 10/325 mg, Tylenol Therapeutic interventions: 1:1 therapeutic assessment, maintained safe therapeutic milieu, encouraged independent ADLs, provided active listening with positive feedback, provided medication education as needed, monitored for change in behavior and needed intervention. Q 15 min safety checks. Restraints/seclusion/emergency medication: N/A Justification of Continued Inpatient Treatment: Continued therapeutic support and medication management needed to provide stabilization, and prevent decompensation decreasing risk to patient for readmittance to in-patient unit. Patients plan is for her to discharge to an assisted living her children have arranged for her sometime this week.
[2018-10-12 20:00] VITALS: BP 142/67
[2018-10-12] MEDS: olanzapine 10mg tablet PO SCH (20:46)
[2018-10-12] MEDS: OLANZapine 2.5MG tablet PO PRN (20:48)
[2018-10-12] MEDS: BUDESONIDE 0.25 MG/2 ML AMPUL.NEB IH SCH (20:59)
--- NOTE | 2018-10-13 02:31 | NUR ---
Nursing Progress Note: Legal hold: Voluntary Client on voluntary DTS Report received from nurse with use of SBAR: BIBIANA Locke Why are they here: The patient was brought to the ER after her son called EMS r/t depression with S/I. The c/o severe depression and anxiety r/t the anniversary of the of her . She reports loss of appetite, weight loss, and says that she drinks beer daily starting in the morning, approximately 2-4 quarts/day. Her BAL was 0.178 at admit, continues on detox protocol. She is a former client of [facility]. The patient has chronic bilateral tremors to her arms and chronic pain r/t osteoarthritis, scoliosis, and osteoporosis. She has a home in [place] to return to, "but it's too much house for me. I just live in one room, my bedroom." She has a possible history of atrial fibrillation with arrhythmia, recently received a echocardiogram, which showed mild regurgitation. She has an upcoming Sexual Assault Counselor appointment with Dr. Reich on 10/14/18. Assessment What has happened this shift: Patient up walking around unit at change of shift. She is pleasant with staff and with her peers. She agrees to a 1x1 assessment at her bedside. She states she is feeling batter and states "My kids got me an apartment on [address]." She describes this as "less stress, less maintenance than the house," She explain how the place is assisted living and how helpful that will be and how she wont be lonely anymore. She is compliant with all her evening medications this shift. S/I, H/I: Pt denies A/VH: Pt denies Sleep: Currently sleeping see sleep assessment ADL's: Independent, uses FWW for ambulation. Group attendance: Yes Were meds taken: Yes Any med S/E: None noted or reported Mental Status Exam Appearance: appropriate, WNL Eye contact: direct Behavior: friendly and cooperative Speech: Clear, normal rate/rhythm. Mood: content, reports she is excited Affect: congruent to mood Thought process: linear, goal directed. Thought Content: Focused on her family and her new place Cognition: A/O X 4 Insight: Fair to good Judgment: Fair to good Interventions PRN's used: [place] 10/325 mg Therapeutic interventions: 1:1 therapeutic assessment, maintained safe therapeutic milieu, encouraged independent ADLs, provided active listening with positive feedback, provided medication education as needed, monitored for change in behavior and needed intervention. Q 15 min safety checks. Restraints/seclusion/emergency medication: N/A Justification of Continued Inpatient Treatment: Continued therapeutic support and medication management needed to provide stabilization, and prevent decompensation decreasing risk to patient for readmittance to in-patient unit. Patients plan is for her to discharge to an assisted living her children have arranged for her sometime this week.
[2018-10-13] MEDS: HYDROcodone/acetaminophen 10/325mg tab PO PRN ×4 (03:42→20:50)
[2018-10-13] MEDS: ibuprofen 200mg tablet PO PRN ×4 (03:43→21:53)
[2018-10-13] MEDS: folic acid 1mg tablet PO SCH (07:45)
[2018-10-13] MEDS: cyanocobalamin 500mcg tablet PO SCH (07:46)
[2018-10-13] MEDS: LORazepam 1 MG tablet PO SCH ×3 (07:46→20:46)
[2018-10-13] MEDS: thiamine 100mg tablet PO SCH (07:46)
[2018-10-13] MEDS: multivitamins, therapeutics tablet PO SCH (07:46)
[2018-10-13] MEDS: duloxetine 30mg CAPSULE.DR PO SCH (07:46)
[2018-10-13] MEDS: pantoprazole 40mg Tablet.DR PO SCH ×2 (07:47→20:47)
[2018-10-13] MEDS: aspirin 81mg tablet.DR PO SCH (07:47)
[2018-10-13] MEDS: lactobacillus rhamnosus 10,000 MMU CELLS/CAPSULE PO SCH ×2 (07:47→20:47)
[2018-10-13] MEDS: levoTHYROXINE 75mcg tablet PO SCH (07:47)
[2018-10-13] MEDS: propranolol 10mg tablet PO SCH ×2 (07:51→17:14)
[2018-10-13] MEDS: nicotine 21mg patch - 24 hr TD SCH (07:52)
[2018-10-13 08:00] VITALS: BP 145/67
[2018-10-13] MEDS: TRELEGY ELLIPTA IH SCH (08:00)
[2018-10-13] MEDS: BUDESONIDE 0.25 MG/2 ML AMPUL.NEB IH SCH ×2 (08:44→20:12)
[2018-10-13] MEDS: hydrOXYzine 25 MG tablet PO SCH ×2 (11:06→20:45)
--- NOTE | 2018-10-13 18:11 | NUR ---
Nursing Progress Note: Legal hold: Voluntary Client on voluntary DTS Report received from nurse with use of SBAR: BIBIANA Holt Why are they here: The patient was brought to the ER after her son called EMS r/t depression with S/I. The c/o severe depression and anxiety r/t the anniversary of the of her . She reports loss of appetite, weight loss, and drinks beer 2-4 quarts daily starting in the morning, BAL 0.178 at admit. She is a former client of [facility]. Patient has chronic bilateral tremors to her arms and chronic pain r/t osteoarthritis, scoliosis, and osteoporosis. She has a home in [place] to return to, "but it's too much house for me. I just live in one room, my bedroom." She has a possible history of atrial fibrillation with arrhythmia, recently received a echocardiogram, which showed mild regurgitation. She has an upcoming Clinic Supervisor appointment with Dr. Reich on 10/14/18. Assessment What has happened this shift: Patient is observed sleeping at shift change. She wakens on her own and greets this RN with a "Good morning." She states that she did not sleep well last night due to pain and her roommate calling out throughout the evening. Teri reports that her feet are feeling much better today. No edema observed. She takes her AM medications without issue and requests Motrin for pain. RN administered as prescribed. Teri joins others for breakfast in the group room. After breakfast she returns to her room ot rest. She does not attend morning group because she is tired. Patient eats all meals and remains pleasant and thoughtful of others throughout the day. S/I, H/I: none reported A/VH: none reported Sleep: 6.5hrs NOC ADL's: Ambulates with steady gait using FWW. Group attendance: afternoon group Were meds taken: Yes Any med S/E: None reported Mental Status Exam Appearance: Clean, well groomed, visible bilateral tremors in hands Eye contact: direct Behavior: Cooperative and friendly Speech: Soft tone, normal rate and rhythm Mood: hopeful and happy Affect: restricted with brightening Thought process: linear, goal directed Thought Content: focused on life improvements Cognition: A&O X4 Insight: good Judgment: good Interventions PRN's used: Motjackie [place] for pain Therapeutic interventions: 1:1 therapeutic assessment, maintained safe therapeutic milieu, encouraged independent ADLs, provided active listening with positive feedback, provided medication education as needed, monitored for change in behavior and needed intervention. Q 15 min safety checks. Restraints/seclusion/emergency medication: N/A Justification of Continued Inpatient Treatment: Patient has improved and will discharge 10/14/18.
[2018-10-13] MEDS ORDERED: HYDR50TA65 PO (18:38)
[2018-10-13] MEDS ORDERED: LACT1CAP26 PO (18:38)
[2018-10-13] MEDS ORDERED: ASPI-1071 PO (18:38)
[2018-10-13] MEDS ORDERED: PANT-47 PO (18:38)
[2018-10-13] MEDS ORDERED: ALBU18HF2 INH (18:38)
[2018-10-13] MEDS ORDERED: ATI1T PO (18:38)
[2018-10-13] MEDS ORDERED: LEVO75TA PO (18:38)
[2018-10-13] MEDS ORDERED: DULO60CA64 PO (18:38)
[2018-10-13] MEDS ORDERED: HYDR-4353 PO (18:38)
[2018-10-13] MEDS ORDERED: OLAN10TA19 PO (18:38)
[2018-10-13] MEDS ORDERED: PROP10TA10 PO (18:38)
[2018-10-13] MEDS ORDERED: FLUT1BLS4 IH (18:38)
[2018-10-13 19:57] VITALS: BP 114/62
[2018-10-13] MEDS: albuterol 2.5 MG/3 ML nebule NEB PRN (20:13)
[2018-10-13] MEDS: olanzapine 10mg tablet PO SCH (20:46)
[2018-10-13] MEDS: OLANZapine 2.5MG tablet PO PRN (20:46)
--- NOTE | 2018-10-14 01:40 | NUR ---
Nursing Progress Note: Legal hold: Voluntary Client on voluntary DTS Report received from nurse with use of SBAR: BIBIANA Caal Why are they here: The patient was brought to the ER after her son called EMS r/t depression with S/I. The c/o severe depression and anxiety r/t the anniversary of the of her . She reports loss of appetite, weight loss, and says that she drinks beer daily starting in the morning, approximately 2-4 quarts/day. Her BAL was 0.178 at admit, continues on detox protocol. She is a former client of [facility]. The patient has chronic bilateral tremors to her arms and chronic pain r/t osteoarthritis, scoliosis, and osteoporosis. She has a home in [place] to return to, "but it's too much house for me. I just live in one room, my bedroom." She has a possible history of atrial fibrillation with arrhythmia, recently received a echocardiogram, which showed mild regurgitation. She has an upcoming Courtroom Deputy Or Calendar Clerk appointment with Dr. Reich on 10/14/18. Assessment What has happened this shift: Patient up walking around unit at change of shift. She agrees to a 1x1 assessment at her bedside. She expresses excitement about being discharged and "starting an new chapter" at her new assisted living facility she will be moving to. She is goal oriented and focused on continuing to get better while in her new housing. She spends her shift interacting with peers and playing [employer] It Original in the group room. She denies SI, HI, AH, VH. She is compliant with all her evening medications and turns to bed after medication administration. S/I, H/I: Denies A/VH: Denies Sleep: Currently sleeping see sleep assessment ADL's: Independent, uses FWW for ambulation. Group attendance: Yes Were meds taken: Yes Any med S/E: None noted or reported Mental Status Exam Appearance: Appropriate, WNL Eye contact: Direct Behavior: Friendly and cooperative Speech: Clear, normal rate/rhythm. Mood: "Good" Affect: Full Thought process: linear, goal directed. Thought Content: Discharge Cognition: A/O X 4 Insight: Fair to good Judgment: Fair to good Interventions PRN's used: [place] 10/325 mg, Motrin Therapeutic interventions: 1:1 therapeutic assessment, maintained safe therapeutic milieu, encouraged independent ADLs, provided active listening with positive feedback, provided medication education as needed, monitored for change in behavior and needed intervention. Q 15 min safety checks. Restraints/seclusion/emergency medication: N/A Justification of Continued Inpatient Treatment: Continued therapeutic support and medication management needed to provide stabilization, and prevent decompensation decreasing risk to patient for readmittance to in-patient unit. Patients plan is for her to discharge to an assisted living her children have arranged for her sometime this week.
[2018-10-14] MEDS: HYDROcodone/acetaminophen 10/325mg tab PO PRN ×3 (02:42→11:26)
[2018-10-14] MEDS: duloxetine 30mg CAPSULE.DR PO SCH (07:42)
[2018-10-14] MEDS: cyanocobalamin 500mcg tablet PO SCH (07:42)
[2018-10-14] MEDS: propranolol 10mg tablet PO SCH (07:43)
[2018-10-14] MEDS: thiamine 100mg tablet PO SCH (07:43)
[2018-10-14] MEDS: aspirin 81mg tablet.DR PO SCH (07:43)
[2018-10-14] MEDS: multivitamins, therapeutics tablet PO SCH (07:43)
[2018-10-14] MEDS: lactobacillus rhamnosus 10,000 MMU CELLS/CAPSULE PO SCH (07:43)
[2018-10-14] MEDS: pantoprazole 40mg Tablet.DR PO SCH (07:44)
[2018-10-14] MEDS: LORazepam 1 MG tablet PO SCH (07:44)
[2018-10-14] MEDS: folic acid 1mg tablet PO SCH (07:44)
[2018-10-14] MEDS: levoTHYROXINE 75mcg tablet PO SCH (07:44)
[2018-10-14] MEDS: nicotine 21mg patch - 24 hr TD SCH (07:48)
[2018-10-14] MEDS: albuterol 2.5 MG/3 ML nebule NEB PRN (07:53)
[2018-10-14] MEDS: BUDESONIDE 0.25 MG/2 ML AMPUL.NEB IH SCH (07:53)
[2018-10-14] MEDS: TRELEGY ELLIPTA IH SCH (08:00)
[2018-10-14 08:13] VITALS: BP 131/71
--- NOTE | 2018-10-14 09:43 | NUR ---
Reassessment: Pt continues on regular diet with 100% PO intake. Noted that patient's wt has changed by -61.6 kg, likely that initial wt was documented in kg using actual wt in pounds. [facility] 10/13. Will continue to follow. Recommendations: 1) Continue with regular diet 2) Continue Thiamine and folic acid given Etoh abuse 3) Weekly wt Addendum: 10/14/18 at [address] Amended: Links added.
[2018-10-14] MEDS: hydrOXYzine 25 MG tablet PO SCH (11:23)
--- NOTE | 2018-10-14 13:58 | NUR ---
Nursing Discharge Note: Patient is accompanied off the unit at 1400 with her daughter Stefany and will be going home. All valuables are with patient. Verbal instructions for followup medication appointments as well as handout with printed information provided to patient. Patients mood is excited and affect is restricted with brightening. Patient has improved since admit and is currently not under any acute physical or emotional distress. Nicotine replacement is offered but not needed as patient already has nicotine patches available at home.
== END 2018-10-14 14:00 | disposition home or self-care (01) | DRG 885 ==
LOC: ADULT MH 16:42
PROVIDERS: ADMIT Psychiatry & Neurology Psychiatry; ATTEND Psychiatry & Neurology Psychiatry
DX: F33.2 Major depressive disorder, recurrent severe without psychotic features (principal); F10.239 Alcohol dependence with withdrawal, unspecified; N39.0 Urinary tract infection, site not specified; R45.851 Suicidal ideations; F41.9 Anxiety disorder, unspecified; D75.1 Secondary polycythemia; E03.9 Hypothyroidism, unspecified; E11.9 Type 2 diabetes mellitus without complications; F17.200 Nicotine dependence, unspecified, uncomplicated; G25.0 Essential tremor; G89.29 Other chronic pain; I10 Essential (primary) hypertension; I48.91 Unspecified atrial fibrillation; J44.9 Chronic obstructive pulmonary disease, unspecified; M19.90 Unspecified osteoarthritis, unspecified site; M54.9 Dorsalgia, unspecified; K21.9 Gastro-esophageal reflux disease without esophagitis; M41.9 Scoliosis, unspecified; M81.0 Age-related osteoporosis without current pathological fracture; Y90.6 Blood alcohol level of 120-199 mg/100 ml; Z90.710 Acquired absence of both cervix and uterus; Z88.5 Allergy status to narcotic agent; Z79.890 Hormone replacement therapy; Z81.8 Family history of other mental and behavioral disorders
CPT/HCPCS: 36415; 80053; 80061; 83036; 83735; 84100; 85025; 87070; 87088; 93306; 94640; 94760; 97110; 97116; 97162; 97530; 99285; J3490; Q0169; Q0177

== ENCOUNTER 2018-11-02 09:38 | Emergency (ER) | payer MEDICARE, OTHER ==
[~2018-11-02] VITALS: Ht 157.5 cm; Wt 59.0 kg
[~2018-11-02 09:38] MED LIST changes: +ALBU18HF2 INH; +ASPI-1071 PO; +ATI1T PO; -CITA-311 PO; +DULO60CA64 PO; +FLUT1BLS4 IH; +HYDR50TA65 PO; +LACT1CAP26 PO; -LEVO112T5 PO; -LORA0.5T PO; +OLAN10TA19 PO; +PROP10TA10 PO; -PROP20TA6 PO; -TRAM50TA2 PO
[2018-11-02 10:46] VITALS: BP 153/76
[2018-11-02] MEDS ORDERED: acetaminophen 325mg tablet PO ONE ×2 (11:10→11:40)
[2018-11-02 11:26] LABS: BASOPHILS # (AUTO) 0.1 X10'3 (0-0.2); BASOPHILS % (AUTO) 0.9 % (0-1); EOSINOPHILS # (AUTO) 0.2 X10'3 (0-0.9); HEMATOCRIT 41.7 % (35.0-45.0); HEMOGLOBIN 14.1 g/dl (12.0-16.0); LYMPHOCYTES # (AUTO) 1.4 X10'3 (1.1-4.8); LYMPHOCYTES % (AUTO) 21.4 % (21-51); MEAN CORPUSCULAR HEMOGLOBIN 34.4 PG (27.0-31.0); MEAN CORPUSCULAR HGB CONC 33.8 g/dL (33.0-36.5); MEAN CORPUSCULAR VOLUME 101.7 FL (78-98); MEAN PLATELET VOLUME 8.1 FL (7.4-10.4); MONOCYTES # (AUTO) 0.8 X10'3 (0-0.9); MONOCYTES % (AUTO) 11.7 % (2-12); NEUTROPHILS # (AUTO) 4.1 X10'3 (1.8-7.7); PLATELET COUNT 248 X10'3 (140-440); RED CELL DISTRIBUTION WIDTH 12.2 % (11.5-14.5); WHITE BLOOD COUNT 6.6 X10'3 (4.5-11.0)
[2018-11-02 11:41] LABS: ALANINE AMINOTRANSFERASE 23 U/L (12-78); ALBUMIN 3.2 G/DL (3.4-5.0); ALBUMIN/GLOBULIN RATIO 0.8 (1.1-1.5); ALKALINE PHOSPHATASE 102 IU/L (46-116); ANION GAP 4 (8-16); ASPARTATE AMINO TRANSFERASE 13 U/L (10-37); BILIRUBIN,TOTAL 0.2 MG/DL (0.1-1.0); BLOOD UREA NITROGEN 13 MG/DL (7-18); CALCIUM 8.7 MG/DL (8.5-10.1); CHLORIDE 106 MMOL/L (99-107); CREATININE 0.62 MG/DL (0.40-0.90); GLUCOSE 113 MG/DL (70-104); POTASSIUM 4.2 MMOL/L (3.5-5.1); SODIUM 141 MMOL/L (135-145); TOTAL CARBON DIOXIDE 30.6 MMOL/L (24-32); eGFR > 90 ML/MIN
[2018-11-02 11:49] LABS: MAGNESIUM 1.8 MG/DL (1.5-2.4)
[2018-11-02] MEDS ORDERED: DICL100G15 TOP (12:04)
== END 2018-11-02 12:19 | disposition home or self-care (01) ==
LOC: ER 09:38
DX: M25.562 Pain in left knee (principal); R79.1 Abnormal coagulation profile; I10 Essential (primary) hypertension; J44.9 Chronic obstructive pulmonary disease, unspecified; E03.9 Hypothyroidism, unspecified; M19.90 Unspecified osteoarthritis, unspecified site; G89.29 Other chronic pain; M81.0 Age-related osteoporosis without current pathological fracture; Z90.710 Acquired absence of both cervix and uterus; Z98.890 Other specified postprocedural states; Z60.2 Problems related to living alone; Z88.8 Allergy status to other drugs, medicaments and biological substances; Z79.82 Long term (current) use of aspirin; Z79.899 Other long term (current) drug therapy; X50.1XXA Overexertion from prolonged static or awkward postures, initial encounter; Y93.89 Activity, other specified; Y92.89 Other specified places as the place of occurrence of the external cause; Y99.8 Other external cause status
CPT/HCPCS: 36415; 71045; 80053; 83735; 83880; 84484; 85025; 85610; 93005; 93971; 99284

== ENCOUNTER 2019-08-23 12:51 | Emergency (ER) | payer MEDICARE ==
[~2019-08-23] VITALS: Ht 157.5 cm; Wt 71.0 kg
[~2019-08-23 12:51] MED LIST changes: +DICL100G15 TOP; -DULO60CA64 PO; +DULO60CA65 PO
[2019-08-23] MEDS ORDERED: normal saline 1000ML IV soln IVB ONE (13:10)
[2019-08-23 13:50] LABS: BASOPHILS # (AUTO) 0.1 X10'3 (0-0.2); BASOPHILS % (AUTO) 0.9 % (0-1); EOSINOPHILS % (AUTO) 0.5 % (0-6); HEMATOCRIT 46.8 % (35.0-45.0); HEMOGLOBIN 15.6 g/dl (12.0-16.0); LYMPHOCYTES # (AUTO) 3.9 X10'3 (1.1-4.8); LYMPHOCYTES % (AUTO) 47.7 % (21-51); MEAN CORPUSCULAR HEMOGLOBIN 32.8 PG (27.0-31.0); MEAN CORPUSCULAR HGB CONC 33.4 g/dL (33.0-36.5); MEAN CORPUSCULAR VOLUME 98.1 FL (78-98); MEAN PLATELET VOLUME 7.9 FL (7.4-10.4); MONOCYTES # (AUTO) 0.6 X10'3 (0-0.9); NEUTROPHILS # (AUTO) 3.5 X10'3 (1.8-7.7); NEUTROPHILS % (AUTO) 42.9 % (42-75); PLATELET COUNT 354 X10'3 (140-440); RED BLOOD COUNT 4.77 X10'6 (4.20-5.60); RED CELL DISTRIBUTION WIDTH 14.6 % (11.5-14.5); WHITE BLOOD COUNT 8.1 X10'3 (4.5-11.0)
[2019-08-23 14:06] LABS: ALANINE AMINOTRANSFERASE 14 U/L (12-78); ALBUMIN 3.1 G/DL (3.4-5.0); ALBUMIN/GLOBULIN RATIO 0.9 (1.1-1.5); ALKALINE PHOSPHATASE 101 IU/L (46-116); ANION GAP 6 (8-16); ASPARTATE AMINO TRANSFERASE 20 U/L (10-37); BILIRUBIN,TOTAL 0.3 MG/DL (0.1-1.0); BLOOD UREA NITROGEN 11 MG/DL (7-18); BUN/CREATININE RATIO 19.3 (6.6-38.0); CALCIUM 8.2 MG/DL (8.5-10.1); CHLORIDE 112 MMOL/L (99-107); CREATININE 0.57 MG/DL (0.40-0.90); GLUCOSE 92 MG/DL (70-104); POTASSIUM 3.7 MMOL/L (3.5-5.1); SODIUM 148 MMOL/L (135-145); TOTAL CARBON DIOXIDE 29.8 MMOL/L (24-32); TOTAL PROTEIN 6.6 G/DL (6.4-8.2); eGFR > 90 ML/MIN
[2019-08-23 14:07] LABS: ETHANOL 0.328 GM/DL (0.0-0.010)
[2019-08-23 14:22] LABS: URINE AMPHETAMINE SCREEN NEGATIVE (Neg); URINE BARBITUATE SCREEN NEGATIVE (Neg); URINE BENZODIAZEPINES SCREEN NEGATIVE (Neg); URINE CANNABINOID SCREEN NEGATIVE (Neg); URINE COCAINE SCREEN NEGATIVE (Neg); URINE METHADONE SCREEN NEGATIVE (Neg); URINE OPIATE SCREEN NEGATIVE (Neg); URINE PHENCYCLIDINE SCREEN NEGATIVE (Neg)
--- NOTE | 2019-08-23 15:41 | NUR ---
PT AMB WITH STEADY GAIT TO RESTROOM
[2019-08-23 16:15] VITALS: BP 134/68
--- NOTE | 2019-08-23 16:26 | NUR ---
PT. DISCHARGED TO HOME VIA CAB. STATES SHE IS DEPRESSED BUT NO THOUGHTS TO HURT HERSELF OR ANYONE ELSE. HAS AN APPOINTMENT NEXT WEEK WITH THERAPIST.
[2019-08-25] MEDS ORDERED: ALBU8.5H8 IH (14:09)
[2019-08-25] MEDS ORDERED: FLUT1BLS4 PO (14:09)
[2019-08-25] MEDS ORDERED: HYDR50TA65 PO (14:09)
[2019-08-25] MEDS ORDERED: LORA-269 PO (14:09)
[2019-08-25] MEDS ORDERED: OLAN10TA19 PO (14:09)
[2019-08-25] MEDS ORDERED: LEVO150T8 PO (14:09)
[2019-08-25] MEDS ORDERED: DULO60CA65 PO (14:09)
[2019-08-25] MEDS ORDERED: PANT40TA4 PO (14:09)
[2019-08-25] MEDS ORDERED: PROP20TA6 PO (14:09)
== END 2019-08-23 16:35 | disposition home or self-care (01) ==
LOC: ER 12:52
DX: S09.90XA Unspecified injury of head, initial encounter (principal); F10.129 Alcohol abuse with intoxication, unspecified; I10 Essential (primary) hypertension; J44.9 Chronic obstructive pulmonary disease, unspecified; E03.9 Hypothyroidism, unspecified; M19.90 Unspecified osteoarthritis, unspecified site; G89.29 Other chronic pain; M81.0 Age-related osteoporosis without current pathological fracture; Z90.710 Acquired absence of both cervix and uterus; Z98.890 Other specified postprocedural states; Z88.8 Allergy status to other drugs, medicaments and biological substances; Z79.82 Long term (current) use of aspirin; Z79.899 Other long term (current) drug therapy; W18.30XA Fall on same level, unspecified, initial encounter; Y93.89 Activity, other specified; Y92.89 Other specified places as the place of occurrence of the external cause; Y99.8 Other external cause status; Y90.9 Presence of alcohol in blood, level not specified
CPT/HCPCS: 36415; 70450; 72125; 80053; 80305; 80320; 82140; 85025; 99285; J7030

== ENCOUNTER 2019-08-28 13:23 | Inpatient (IN) | payer MEDICARE ==
[~2019-08-28] VITALS: Ht 157.5 cm; Wt 71.0 kg
[~2019-08-28 13:23] MED LIST changes: -ALBU18HF2 INH; +ALBU8.5H8 IH; -ASPI-1071 PO; -ATI1T PO; -DICL100G15 TOP; -FLUT1BLS4 IH; +FLUT1BLS4 PO; -HYDR-4353 PO; -LACT1CAP26 PO; +LEVO150T8 PO; -LEVO75TA PO; +LORA-269 PO; -MULT1TAB74 PO; -PANT-47 PO; +PANT40TA4 PO; -PROP10TA10 PO; +PROP20TA6 PO
[2019-08-28] MEDS ORDERED: loperamide 2mg capsule PO PRN (15:15)
[2019-08-28] MEDS ORDERED: magnesium hydroxide 30ml (MOM) UD suspension PO PRN (15:15)
[2019-08-28] MEDS ORDERED: mag hydrox/Alum hydrox/simeth 30ml oral suspension PO PRN (15:15)
[2019-08-28 15:26] VITALS: BP 151/90
[2019-08-28] MEDS: hydrOXYzine 25 MG tablet PO PRN (17:10)
--- NOTE | 2019-08-28 17:11 | NUR ---
ADMISSION NOTE: Patient arrived on unit at 1453 via WC accompanied by JAIRO Braden. All belongings inventoried and placed in patient locker. Skin assessment completed without findings. Patient has a history of ETOH abuse following the of her spouse several years ago. She has been unable to cope with the loss and turns to alcohol to numb her pain. Family is distancing themselves from patient due to the ETOH abuse. Patient states she would rather be and if drinking causes this, she is okay with that. Admits to drinking 2-3 beers/day, but when questioned about the BA of 0.3 admits to adding Jacy to her coffee and then drinking the beers. Suffers with chronic pain and Benign essential tremors. Is tearful when speaking about her spouse and the potential loss of her family due to her recent actions.
[2019-08-28] MEDS ORDERED: LORazepam 1 MG tablet PO PRN (17:55)
[2019-08-28] MEDS ORDERED: albuterol 2.5 MG/3 ML nebule NEB PRN (17:55)
[2019-08-28 20:00] VITALS: BP 140/78
[2019-08-28] MEDS: hydrOXYzine 25 MG tablet PO SCH (20:36)
[2019-08-28] MEDS: propranolol 40mg tablet PO SCH (20:37)
[2019-08-28] MEDS: pantoprazole 40mg Tablet.DR PO SCH (20:37)
[2019-08-28] MEDS: olanzapine 10mg tablet PO SCH (20:37)
--- NOTE | 2019-08-29 03:10 | NUR ---
Nursing Progress Note: Legal hold: 5150 Client on involuntary status for DTS. Report received from BIBIANA Locke with use of SBAR. Why are they here: Patient arrived on unit at 1453 via WC accompanied by JAIRO Braden. All belongings inventoried and placed in patient locker. Skin assessment completed without findings. Patient has a history of ETOH abuse following the of her spouse several years ago. She has been unable to cope with the loss and turns to alcohol to numb her pain. Family is distancing themselves from patient due to the ETOH abuse. Patient states she would rather be and if drinking causes this, she is okay with that. Admits to drinking 2-3 beers/day, but when questioned about the BA of 0.3 admits to adding Jacy to her coffee and then drinking the beers. Suffers with chronic pain and Benign essential tremors. Is tearful when speaking about her spouse and the potential loss of her family due to her recent actions. Assessment: What has happened this shift: The patient was approached in her room. She was known to this chief underwriter as she has been here before. "I know what you're going to say, but, let's put the past in the past. I don't want to talk about it." A little later the patient asked about Holgate for pain. There was no Holgate ordered. JIMMY Layton was called and Holgate was not going to be ordered because the patient uses it while drinking. She agreed that was the case, and she was fine after that. She stayed in her until HS med pass, then went to bed. She has slept all night. S/I, H/I: Denies A/VH: Denies Sleep: See sleep assessment ADL's: Independent Group attendance: No groups at night Were meds taken: Yes Any med S/E: None reported or observed Mental Status Exam Appearance: Disheveled, malodorous older woman wearing dirty street clothes. Eye contact: Good Behavior: Isolative, fatigued, tired Speech: Normal Mood: unknown Affect: Blunted Thought process: Linear Thought Content: Unknown Cognition: A/Ox4 Insight: Poor Judgment: Poor Interventions: PRN's used: none Therapeutic interventions: 1:1 therapeutic assessment, maintained safe therapeutic milieu, provided active listening with positive reinforcement, provided medication administration/education/monitoring as needed; Q15 safety checks. Restraints/seclusion/emergency medication: N/A Justification of Continued Inpatient Treatment: Continued therapeutic support and medication management needed to provide stabilization, prevent decompensation, improve coping mechanisms decreasing risk to patient and re-admittance.
[2019-08-29] MEDS: ibuprofen tablet 400 MG TABLET PO PRN ×3 (04:52→23:57)
[2019-08-29] MEDS: hydrOXYzine 25 MG tablet PO PRN (04:52)
[2019-08-29 07:27] VITALS: BP 141/102
[2019-08-29] MEDS: (Fluticasone/Umeclidin/Vilanter (Trelegy Ellipta 100-62.5-25) 1 PUFF) PO SCH (08:00)
[2019-08-29] MEDS: hydrOXYzine 25 MG tablet PO SCH ×2 (08:06→12:05)
[2019-08-29] MEDS: levoTHYROXINE 75mcg tablet PO SCH (08:07)
[2019-08-29] MEDS: propranolol 40mg tablet PO SCH ×2 (08:07→20:28)
[2019-08-29] MEDS: duloxetine 30mg CAPSULE.DR PO SCH (08:07)
[2019-08-29] MEDS: pantoprazole 40mg Tablet.DR PO SCH ×2 (08:07→20:28)
[2019-08-29 08:16] LABS: HEMOGLOBIN A1C 5.9 % (4.5-6.2)
[2019-08-29 08:18] LABS: CHOL/HDL RATIO 3.1 (0.00-4.99); CHOLESTEROL 215 MG/DL (0-200); HDL CHOLESTEROL 69 MG/DL (35-60); LDL CHOLESTEROL 127 MG/DL (50-100); TRIGLYCERIDES 115 MG/DL (20-135)
[2019-08-29] MEDS ORDERED: FLU VACC QS2019-20 36MOS UP/PF 60 MCG/0.5 ML SYRINGE IMVAC ONE (10:00)
--- NOTE | 2019-08-29 11:34 | NUR ---
PSYCHOSOCIAL ASSESSMENT Melina is a 69 y/o female. She was brought to the ED via [facility] on a 5150 on 08/25/19 after her daughter called for a welfare check. Melina reportedly told her daughter she had taken pills. Melina denied that she overdosed. She was intoxicated upon arrival to the ED (GATO .[id number]). Melina was seen in the ED on 08/23/19 and reported SI without a plan. She was discharged home with a plan to follow up with a therapist. Melina reported her 6 years ago from a sudden heart attack. She reported she now lives by herself, feels isolated, and hopeless. She reported her kids are not very involved with her. She reported another stressor is that her doctor at [facility] has reduced her pain medications again due to her admitting that she is consuming alcohol during the day. She reported she started drinking about 2 years ago. She reported she has not been to counseling to help with the loss of her . She would like to start seeing a therapist. She expressed concern about needing assistance in her home. ANILA Del Cid Addendum: 08/29/19 at 1135 by Myriam VARGAS Amended: Links added.
[2019-08-29] MEDS: lisinopril 5mg tablet PO SCH (13:52)
[2019-08-29] MEDS: LORazepam 1 MG tablet PO PRN (16:00)
[2019-08-29 20:00] VITALS: BP 112/59
[2019-08-29] MEDS: olanzapine 10mg tablet PO SCH (20:29)
[2019-08-30] MEDS ORDERED: hyDRALAzine 10mg tablet PO PRN ×2 (00:16→01:10)
--- NOTE | 2019-08-30 00:35 | NUR ---
Nursing Progress Note: Legal hold: 5150 Client on involuntary status for DTS. Report received from BIBIANA Locke with use of SBAR. Why are they here: Patient arrived on unit at 1453 via WC accompanied by JAIRO Braden. All belongings inventoried and placed in patient locker. Skin assessment completed without findings. Patient has a history of ETOH abuse following the of her spouse several years ago. She has been unable to cope with the loss and turns to alcohol to numb her pain. Family is distancing themselves from patient due to the ETOH abuse. Patient states she would rather be and if drinking causes this, she is okay with that. Admits to drinking 2-3 beers/day, but when questioned about the BA of 0.3 admits to adding Jacy to her coffee and then drinking the beers. Suffers with chronic pain and Benign essential tremors. Is tearful when speaking about her spouse and the potential loss of her family due to her recent actions. Assessment: What has happened this shift: Patient was seen for 1:1 in her room. 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 My daughter also has one good eye. Between us...when we are together, have one good set of eyes." She continues, "I'm depressed. Assisted was supposed to be fun, but then my and left me. I'm bored, and there is nothing to do but drink." She was asked if she feels any withdrawal symptoms from Opioids, "My doctor already gave me less, so I haven't been using much." The patient spent the evening in her room, took HS meds, then went to bed. S/I, H/I: Denies A/VH: Denies Sleep: See sleep assessment ADL's: Independent Group attendance: No groups at night Were meds taken: Yes Any med S/E: None reported or observed Mental Status Exam Appearance: Disheveled, malodorous older woman wearing same clothes as yesterday. Eye contact: Good Behavior: Isolative, fatigued, tired Speech: Normal to slowed Mood: depressed Affect: Blunted Thought process: Linear Thought Content: Focused on how her life has ended up. Cognition: A/Ox4 Insight: Poor Judgment: Poor Interventions: PRN's used: [place] Therapeutic interventions: 1:1 therapeutic assessment, maintained safe therapeutic milieu, provided active listening with positive reinforcement, provided medication administration/education/monitoring as needed; Q15 safety checks. Restraints/seclusion/emergency medication: N/A Justification of Continued Inpatient Treatment: Continued therapeutic support and medication management needed to provide stabilization, prevent decompensation, improve coping mechanisms decreasing risk to patient and re-admittance.
[2019-08-30] MEDS ORDERED: hydrOXYzine 10 MG tablet PO PRN ×2 (01:10→08:15)
[2019-08-30] MEDS: (Fluticasone/Umeclidin/Vilanter (Trelegy Ellipta 100-62.5-25) 1 PUFF) PO SCH (08:00)
[2019-08-30 08:04] VITALS: BP 128/82
[2019-08-30] MEDS: propranolol 40mg tablet PO SCH ×3 (08:11→19:49)
[2019-08-30] MEDS: duloxetine 30mg CAPSULE.DR PO SCH ×2 (08:11→12:43)
[2019-08-30] MEDS: lisinopril 5mg tablet PO SCH (08:11)
[2019-08-30] MEDS: levoTHYROXINE 75mcg tablet PO SCH (08:11)
[2019-08-30] MEDS: pantoprazole 40mg Tablet.DR PO SCH ×2 (08:11→19:18)
[2019-08-30] MEDS: hydrOXYzine 25 MG tablet PO SCH ×2 (09:15→19:18)
[2019-08-30] MEDS: LORazepam 1 MG tablet PO PRN (12:43)
[2019-08-30] MEDS ORDERED: buprenorphine/naloxone 2-0.5mg sublingual tablet SL ONE (13:00)
--- NOTE | 2019-08-30 17:03 | NUR ---
Nursing Progress Note: Legal hold: 5150 Client on involuntary status for DTS. Report received from BIBIANA Locke with use of SBAR. Why are they here: Patient arrived on unit at 1453 via WC accompanied by JAIRO Braden. All belongings inventoried and placed in patient locker. Skin assessment completed without findings. Patient has a history of ETOH abuse following the of her spouse several years ago. She has been unable to cope with the loss and turns to alcohol to numb her pain. Family is distancing themselves from patient due to the ETOH abuse. Patient states she would rather be and if drinking causes this, she is okay with that. Admits to drinking 2-3 beers/day, but when questioned about the BA of 0.3 admits to adding Jacy to her coffee and then drinking the beers. Suffers with chronic pain and Benign essential tremors. Is tearful when speaking about her spouse and the potential loss of her family due to her recent actions. Assessment: Received Pt in bed sleeping w/o distress at change of shift. She awoke for vitals and was pleasant and cooperative, but anxious. Pt was given scheduled Atarax and PRN Ativan during this shift with good effect. She began to describe needing to pay her storage bill and the surrounding obstacles. She was supported and reassured she would get help and she received a phone call that helped get her bills paid and she was relieved for a bit. She attended group and enjoyed them. She is engageable and cooperative. She is depressed and still grieving and living in the wake of her husbands . Pt received Suboxone 2mg SL per Dr[address] Reich for pain/opiate w/d and Pt stated in late afternoon that it worked really good, better than the [place] Pt rested in bed before dinner. S/I, H/I: Denies A/VH: Denies Sleep: Napped ADL's: Independent Group attendance: Yes Were meds taken: Yes Any med S/E: None reported or observed Mental Status Exam Appearance: Casual Eye contact: Good Behavior: Tired Speech: Normal to slowed Mood: Depressed, Pleasant Affect: Blunted Thought process: Linear Thought Content: Focused on paying bills. Cognition: A/Ox4 Insight: Poor Judgment: Poor Interventions: PRN's used: Ativan Therapeutic interventions: 1:1 therapeutic assessment, maintained safe therapeutic milieu, provided active listening with positive reinforcement, provided medication administration/education/monitoring as needed; Q15 safety checks. Restraints/seclusion/emergency medication: N/A Justification of Continued Inpatient Treatment: Continued therapeutic support and medication management needed to provide stabilization, prevent decompensation, improve coping mechanisms decreasing risk to patient and re-admittance.
[2019-08-30 20:05] VITALS: BP 98/60
[2019-08-30] MEDS: olanzapine 10mg tablet PO SCH (20:53)
[2019-08-31] MEDS: LORazepam 1 MG tablet PO PRN ×2 (01:05→12:23)
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
[2019-08-31] MEDS: ibuprofen tablet 400 MG TABLET PO PRN ×2 (05:11→16:27)
[2019-08-31 08:00] VITALS: BP 110/70
[2019-08-31] MEDS: (Fluticasone/Umeclidin/Vilanter (Trelegy Ellipta 100-62.5-25) 1 PUFF) PO SCH (08:00)
[2019-08-31] MEDS: pantoprazole 40mg Tablet.DR PO SCH ×2 (08:19→20:38)
[2019-08-31] MEDS: lisinopril 5mg tablet PO SCH (08:19)
[2019-08-31] MEDS: hydrOXYzine 25 MG tablet PO SCH ×2 (08:20→20:38)
[2019-08-31] MEDS: propranolol 40mg tablet PO SCH ×2 (08:20→20:00)
[2019-08-31] MEDS: levoTHYROXINE 75mcg tablet PO SCH (08:20)
[2019-08-31] MEDS: duloxetine 30mg CAPSULE.DR PO SCH ×2 (08:20→12:23)
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
[2019-08-31] MEDS ORDERED: hydrOXYzine 25 MG tablet PO PRN (16:30)
[2019-08-31] MEDS ORDERED: buprenorphine/naloxone 2-0.5mg sublingual tablet SL ONE (19:20)
[2019-08-31 19:52] VITALS: BP 92/68
[2019-08-31] MEDS: olanzapine 10mg tablet PO SCH (20:38)
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
[2019-09-01] MEDS: LORazepam 1 MG tablet PO PRN ×2 (04:52→14:12)
[2019-09-01 08:00] VITALS: BP 111/59
[2019-09-01] MEDS: (Fluticasone/Umeclidin/Vilanter (Trelegy Ellipta 100-62.5-25) 1 PUFF) PO SCH (08:00)
[2019-09-01] MEDS: lisinopril 5mg tablet PO SCH (08:00)
[2019-09-01] MEDS: propranolol 40mg tablet PO SCH ×2 (08:00→20:31)
[2019-09-01] MEDS: levoTHYROXINE 75mcg tablet PO SCH (08:25)
[2019-09-01] MEDS: duloxetine 30mg CAPSULE.DR PO SCH ×2 (08:25→12:08)
[2019-09-01] MEDS: pantoprazole 40mg Tablet.DR PO SCH ×2 (08:25→20:31)
[2019-09-01] MEDS: hydrOXYzine 25 MG tablet PO SCH ×2 (08:25→20:31)
--- NOTE | 2019-09-01 12:57 | NUR ---
Initial: Patient is on a heart healthy diet, noted elevated cholesterol. Great appetite, eating 75-100% PO intake. No nutrition problem at this time. Recommend: 1. continue heart healthy diet 2. bowel care as needed 3. weekly weights Addendum: 09/01/19 at [address] Amended: Links added.
[2019-09-01] MEDS ORDERED: nicotine 14mg patch - 24hr TD ONE (15:25)
[2019-09-01] MEDS: NICOTINE POLACRILEX 2 MG LOZENGE BC PRN (16:03)
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
[2019-09-01] MEDS: buprenorphine/naloxone 2-0.5mg sublingual tablet SL SCH (18:22)
[2019-09-01 20:07] VITALS: BP 139/80
[2019-09-01] MEDS: olanzapine 10mg tablet PO SCH (20:31)
[2019-09-01] MEDS: ibuprofen tablet 400 MG TABLET PO PRN (23:25)
[2019-09-02] MEDS: hydrOXYzine 25 MG tablet PO PRN ×2 (01:41→12:52)
[2019-09-02] MEDS: acetaminophen 325mg tablet PO PRN (01:42)
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
[2019-09-02] MEDS: hydrOXYzine 25 MG tablet PO SCH ×2 (07:52→20:51)
[2019-09-02] MEDS: duloxetine 30mg CAPSULE.DR PO SCH ×2 (07:53→08:03)
[2019-09-02] MEDS: pantoprazole 40mg Tablet.DR PO SCH ×2 (07:53→20:49)
[2019-09-02] MEDS: levoTHYROXINE 75mcg tablet PO SCH (07:54)
[2019-09-02] MEDS: nicotine 14mg patch - 24hr TD SCH (07:56)
[2019-09-02] MEDS: (Fluticasone/Umeclidin/Vilanter (Trelegy Ellipta 100-62.5-25) 1 PUFF) PO SCH (08:00)
[2019-09-02] MEDS: propranolol 40mg tablet PO SCH (08:00)
--- NOTE | 2019-09-02 08:45 | NUR ---
Pt HR this am 57 and checked again by RN manual radial pulse 55. Propanolol held.
[2019-09-02 08:49] VITALS: BP 112/56
[2019-09-02] MEDS: NICOTINE POLACRILEX 2 MG LOZENGE BC PRN ×2 (10:48→15:26)
--- NOTE | 2019-09-02 14:02 | NUR ---
Per Dr Baker order, rotate heat and ice to pt low back and neck for extra pain relief. RN gave pt warm blankets rotated with hospital ice bags and pt states positive relief.
--- NOTE | 2019-09-02 15:43 | NUR ---
Pt has order for Lidocaine patch for back/neck pain per Dr Mistry. Pt states she would prefer to have the patch on through the noc to help her sleep since increased pain kept her up last noc. She states during the day she will use ice /heat rotation.
[2019-09-02] MEDS: ibuprofen tablet 400 MG TABLET PO PRN (16:22)
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
[2019-09-02] MEDS: buprenorphine/naloxone 2-0.5mg sublingual tablet SL SCH (17:59)
[2019-09-02] MEDS: LIDOcaine 5% patch TP SCH (18:10)
[2019-09-02 19:00] VITALS: BP 146/99
[2019-09-02] MEDS: propranolol 10mg tablet PO SCH (20:49)
[2019-09-02] MEDS: olanzapine 10mg tablet PO SCH (20:49)
[2019-09-03] MEDS: ibuprofen tablet 400 MG TABLET PO PRN ×2 (01:01→14:36)
[2019-09-03] MEDS: hydrOXYzine 25 MG tablet PO PRN (01:02)
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
[2019-09-03 08:00] VITALS: BP 114/54
[2019-09-03] MEDS ORDERED: LIDOcaine 5% patch TP SCH (08:00)
[2019-09-03] MEDS: LIDOcaine 5% patch TP SCH ×2 (08:00→20:53)
[2019-09-03] MEDS: (Fluticasone/Umeclidin/Vilanter (Trelegy Ellipta 100-62.5-25) 1 PUFF) PO SCH (08:00)
[2019-09-03] MEDS: pantoprazole 40mg Tablet.DR PO SCH ×2 (08:24→20:58)
[2019-09-03] MEDS: hydrOXYzine 25 MG tablet PO SCH ×3 (08:24→20:00)
[2019-09-03] MEDS: duloxetine 30mg CAPSULE.DR PO SCH ×2 (08:25)
[2019-09-03] MEDS: levoTHYROXINE 75mcg tablet PO SCH (08:25)
[2019-09-03] MEDS: propranolol 10mg tablet PO SCH ×2 (08:26→20:00)
[2019-09-03] MEDS: nicotine 14mg patch - 24hr TD SCH (08:42)
[2019-09-03] MEDS: NICOTINE POLACRILEX 2 MG LOZENGE BC PRN ×2 (09:43→14:36)
[2019-09-03] MEDS ORDERED: ipratropium 0.5 MG/2.5ML nebule IH PRN (14:00)
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
[2019-09-03] MEDS ORDERED: hydrOXYzine 25 MG tablet PO ONE (16:15)
[2019-09-03 16:38] VITALS: BP 124/63
[2019-09-03 17:25] VITALS: BP 117/63
[2019-09-03] MEDS: buprenorphine/naloxone 2-0.5mg sublingual tablet SL SCH (17:27)
[2019-09-03 20:55] VITALS: BP 90/45
[2019-09-03] MEDS: olanzapine 10mg tablet PO SCH (20:59)
[2019-09-03] MEDS: budesonide 0.5mg/2ml UD nebule IH SCH (21:05)
[2019-09-04] MEDS: acetaminophen 325mg tablet PO PRN ×2 (00:18→17:16)
[2019-09-04] MEDS: hydrOXYzine 25 MG tablet PO PRN ×2 (02:46→15:53)
--- NOTE | 2019-09-04 04:14 | NUR ---
Nursing Progress Note: Legal hold: 5150 Client on involuntary status for DTS. Report received from [employer] with use of SBAR. Why are they here: Patient has a history of ETOH abuse following the of her spouse several years ago. She has been unable to cope with the loss and turns to alcohol to numb her pain. Family is distancing themselves from patient due to the ETOH abuse. Patient states she would rather be and if drinking causes this, she is okay with that. Admits to drinking 2-3 beers/day, but when questioned about the BA of 0.3 admits to adding Jacy to her coffee and then drinking the beers. Suffers with chronic pain and Benign essential tremors. Is tearful when speaking about her spouse and the potential loss of her family due to her recent actions. Assessment: Patient up ambulating in the hallway wearing [facility] scrubs. Patient pleasant, co-operative, in no distress, allowing for vitals signs and physical assessment to be completed. Patient then went into rec room and watched some TV. Later, patient went into community room when snacks came around. Patient expressed some concern over her medications as she stated that the MD had made some changes to them today. All questions answered to patients understanding regarding the lidoderm patch and the atarax tablets. Patient later went to bed, awaking once for tylenol for back and neck pain, and then for anxiety.Prn atarax was given, and patient returned to bed. S/I, H/I: Denies A/VH: Denies Sleep: See sleep note intervention ADL's: Independent Group attendance: Went to rec room and community room Were meds taken: Yes Any med S/E: None reported or observed Mental Status Exam Appearance: Casual Eye contact: Good Behavior: mild anxiety over medications, otherwise, calm Speech: Normal to slowed Mood: Pleasant Affect: Blunted Thought process: Linear Thought Content: Pain Cognition: A/Ox4 Insight: Fair Judgment: Fair Interventions: PRN's used: Tylenol and atarax Therapeutic interventions: 1:1 therapeutic assessment, maintained safe therapeutic milieu, provided active listening with positive reinforcement, provided medication administration/education/monitoring as needed; Q15 safety checks. Restraints/seclusion/emergency medication: N/A Justification of Continued Inpatient Treatment: Continued therapeutic support and medication management needed to provide stabilization, prevent decompensation, improve coping mechanisms decreasing risk to patient and re-admittance. Overall, she is engageable and cooperativewith moments of anxiety and was focused on her back pain. She still appears depressed and will Still talk about her losses and her husbands if brought up. Pt reports Suboxone less effective after first day.
[2019-09-04 07:00] VITALS: BP 108/57
[2019-09-04 08:00] VITALS: BP 108/51
[2019-09-04] MEDS: pantoprazole 40mg Tablet.DR PO SCH ×2 (08:26→19:49)
[2019-09-04] MEDS: duloxetine 30mg CAPSULE.DR PO SCH ×2 (08:27→08:36)
[2019-09-04] MEDS: hydrOXYzine 25 MG tablet PO SCH ×3 (08:27→19:50)
[2019-09-04] MEDS: levoTHYROXINE 75mcg tablet PO SCH (08:28)
[2019-09-04] MEDS: nicotine 14mg patch - 24hr TD SCH (08:29)
[2019-09-04] MEDS: NICOTINE POLACRILEX 2 MG LOZENGE BC PRN ×3 (08:44→18:37)
[2019-09-04] MEDS: ibuprofen tablet 400 MG TABLET PO PRN (09:15)
[2019-09-04] MEDS: budesonide 0.5mg/2ml UD nebule IH SCH ×2 (09:27→20:00)
[2019-09-04] MEDS: propranolol 10mg tablet PO SCH ×2 (09:47→19:49)
[2019-09-04] MEDS: buprenorphine/naloxone 2-0.5mg sublingual tablet SL SCH (17:15)
--- NOTE | 2019-09-04 17:36 | NUR ---
Nursing Progress Note: Legal hold: 5150 Client on involuntary status for DTS. Report received from RN with use of SBAR. Why are they here: Patient arrived on unit at 1453 via WC accompanied by JAIRO Braden. All belongings inventoried and placed in patient locker. Skin assessment completed without findings. Patient has a history of ETOH abuse following the of her spouse several years ago. She has been unable to cope with the loss and turns to alcohol to numb her pain. Family is distancing themselves from patient due to the ETOH abuse. Patient states she would rather be and if drinking causes this, she is okay with that. Admits to drinking 2-3 beers/day, but when questioned about the BA of 0.3 admits to adding Jacy to her coffee and then drinking the beers. Suffers with chronic pain and Benign essential tremors. Is tearful when speaking about her spouse and the potential loss of her family due to her recent actions. Assessment: Received Pt . Pt was up and drinking coffee watching TV prior to breakfast. She was pleasant and cooperative. Pt ate all meals in community room and interacted well with others as she watched TV in Recreation room as well. Overall, she is engageable and cooperative. she was concerned about her medications and if she will have any for home. She wanted to know about her medications and which one was working so well to relax her at night. After going through meds with her it was the Sublocade that she was referring to. She was concerned that she may not get a prescription for it for when she returns home. Nurse explained that would be up to the MD and to ask him about it prior to discharge. She stated understanding and stated she would do that. She still appears depressed and will still talk her husbands if brought up. Pt reported that Lidocaine patch, Motrin, and icebags have helped her pain somewhat. S/I, H/I: Denies A/VH: Denies Sleep: No ADL's: Independent Group attendance: No groups today Were meds taken: Yes Any med S/E: None reported or observed Mental Status Exam Appearance: Casual Eye contact: Good Behavior: Anxious at times Speech: Normal Mood: Pleasant, talkative Affect: Blunted Thought process: Linear Thought Content: Medications Cognition: A/Ox4 Insight: Fair Judgment: Fair Interventions: PRN's used: Nicotine Lozenges and Motrin, and prn dose of Atarax for afternoon anxiety, Tylenol back pain Therapeutic interventions: 1:1 therapeutic assessment, maintained safe therapeutic milieu, provided active listening with positive reinforcement, provided medication administration/education/monitoring as needed; Q15 safety checks. Restraints/seclusion/emergency medication: N/A Justification of Continued Inpatient Treatment: Continued therapeutic support and medication management needed to provide stabilization, prevent decompensation, improve coping mechanisms decreasing risk to patient and re-admittance.
[2019-09-04] MEDS: LIDOcaine 5% patch TP SCH (19:54)
[2019-09-04 20:00] VITALS: BP 112/67
[2019-09-04] MEDS: olanzapine 10mg tablet PO SCH (20:02)
--- NOTE | 2019-09-05 01:28 | NUR ---
Nursing Progress Note: Legal hold: N/A Client on Voluntary status Report received from BIBIANA Rivers with use of SBAR. Why are they here: Patient arrived on unit at 1453 via WC accompanied by JAIRO Braden. All belongings inventoried and placed in patient locker. Skin assessment completed without findings. Patient has a history of ETOH abuse following the of her spouse several years ago. She has been unable to cope with the loss and turns to alcohol to numb her pain. Family is distancing themselves from patient due to the ETOH abuse. Patient states she would rather be and if drinking causes this, she is okay with that. Admits to drinking 2-3 beers/day, but when questioned about the BA of 0.3 admits to adding Jacy to her coffee and then drinking the beers. Suffers with chronic pain and Benign essential tremors. Is tearful when speaking about her spouse and the potential loss of her family due to her recent actions. Assessment: What happened this shift: Patient was on floor socializing with pt's and staff at change of shift. at shift change pt immediately asked about getting atarax, but was reminded that she cannot have it until 1999. Pt spent most of the evening sitting with other pt's watching tv in the group room. pt is friendly and pleasant with staff and patients. pt went to bed with 2L of oxygen but would periodically take it of during the night. pt's oxygen sat was 94% on RA. S/I, H/I: Denies. A/VH: Denies Sleep: see sleep assessment ADL's: Independent Group attendance: No group on mold shifter. Were meds taken: Yes, medication compliant. Any med S/E: None noted. Mental Status Exam Appearance: Clean and wearing green scrubs. Eye contact: Good. Behavior: social Speech: WNL Mood: Calm but needy. Affect: Flat. Thought process: Linear. Thought Content: atarax Cognition: A/O X 4 Insight: Fair Judgment: Fair Interventions: PRN's used: Atarax. Therapeutic interventions: 1:1 assessment,active listening, therapeutic conversation, medication administration/education/monitoring, positive reinforcement, encouragement to attend groups, Q15 safety checks. Restraints/seclusion/emergency medication: N/A Justification of Continued Inpatient Treatment: Continued therapeutic support and medication adjustment and monitoring needed to provide stabilization, prevent decompensation, improve coping mechanisms decreasing risk to patient and re-admittance.
[2019-09-05] MEDS: ibuprofen tablet 400 MG TABLET PO PRN ×2 (02:03→10:24)
[2019-09-05] MEDS: hydrOXYzine 25 MG tablet PO PRN ×2 (04:36→15:40)
[2019-09-05] MEDS: acetaminophen 325mg tablet PO PRN (04:37)
[2019-09-05 07:00] VITALS: BP 120/53
[2019-09-05] MEDS: propranolol 10mg tablet PO SCH ×2 (08:00→20:29)
[2019-09-05] MEDS: levoTHYROXINE 75mcg tablet PO SCH (08:19)
[2019-09-05] MEDS: hydrOXYzine 25 MG tablet PO SCH ×3 (08:19→20:29)
[2019-09-05] MEDS: pantoprazole 40mg Tablet.DR PO SCH ×2 (08:19→20:29)
[2019-09-05] MEDS: duloxetine 30mg CAPSULE.DR PO SCH ×2 (08:20)
[2019-09-05] MEDS: nicotine 14mg patch - 24hr TD SCH (08:20)
[2019-09-05] MEDS: NICOTINE POLACRILEX 2 MG LOZENGE BC PRN ×2 (12:20→17:14)
--- NOTE | 2019-09-05 17:10 | NUR ---
Nursing Progress Note: Melina Legal hold: Voluntary Client on involuntary status for DTS. Report received from BIBIANA Robertson with use of SBAR. Why are they here: Patient arrived on unit at 1453 via WC accompanied by JAIRO Braden. All belongings inventoried and placed in patient locker. Skin assessment completed without findings. Patient has a history of ETOH abuse following the of her spouse several years ago. She has been unable to cope with the loss and turns to alcohol to numb her pain. Family is distancing themselves from patient due to the ETOH abuse. Patient states she would rather be and if drinking causes this, she is okay with that. Admits to drinking 2-3 beers/day, but when questioned about the BA of 0.3 admits to adding Jacy to her coffee and then drinking the beers. Suffers with chronic pain and Benign essential tremors. Is tearful when speaking about her spouse and the potential loss of her family due to her recent actions. Assessment: Patient awakens for breakfast. She states that the combination of the suboxone, Lidocaine patch, Motrin and Tylenol are helping significantly with her back pain. Pt. spoke at [facility] about changing some of the lifestyle patterns that she has in place that are maladaptive in her life. 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 Patient was told that she would be leaving before Wednesday and she has some anxieties about this. She has no support system in place, as her friends "left her when she became depressed". Communicated to her that having a sponsor from would be beneficial for her, patient agrees, and will seek to find AA meetings. Patient is pleasant and converses easily with staff and peers. Pt. rates her depression 11/28. BGM: 255, 283, 206 S/I, H/I: Denies A/VH: Denies Sleep: 6.5 hrs. NOC, napped ADL's: Independent Group attendance: No groups today Were meds taken: Yes Any med S/E: None reported or observed Mental Status Exam Appearance: Clean and neat in personal attire. Eye contact: Good Behavior: Anxious, cooperativve. Speech: Clear. Slowed speeech pattern. Mood: Depressed Affect: Blunted Thought process: Linear Thought Content: Pain, wants suboxone b.i.d., DC this week, AA. Cognition: A/Ox4 Insight: Fair Judgment: Fair Interventions: PRN's used: Caitlyn Therapeutic interventions: 1:1 therapeutic assessment, maintained safe therapeutic milieu, provided active listening with positive reinforcement, provided medication administration/education/monitoring as needed; Q15 safety checks. Restraints/seclusion/emergency medication: N/A Justification of Continued Inpatient Treatment: Continued therapeutic support and medication management needed to provide stabilization, prevent decompensation, improve coping mechanisms decreasing risk to patient and re-admittance.
[2019-09-05] MEDS: buprenorphine/naloxone 2-0.5mg sublingual tablet SL SCH (17:14)
[2019-09-05] MEDS: budesonide 0.5mg/2ml UD nebule IH SCH ×2 (20:00→20:10)
[2019-09-05] MEDS: olanzapine 10mg tablet PO SCH (20:29)
[2019-09-05] MEDS: LIDOcaine 5% patch TP SCH (20:44)
[2019-09-05 20:59] VITALS: BP 135/75
--- NOTE | 2019-09-05 23:10 | NUR ---
Nursing Progress Note: Melina Legal hold: N/A Client on Voluntary status Report received from EDOUARD Caal with use of SBAR. Why are they here: Patient arrived on unit at 1453 via WC accompanied by JAIRO Braden. All belongings inventoried and placed in patient locker. Skin assessment completed without findings. Patient has a history of ETOH abuse following the of her spouse several years ago. She has been unable to cope with the loss and turns to alcohol to numb her pain. Family is distancing themselves from patient due to the ETOH abuse. Patient states she would rather be and if drinking causes this, she is okay with that. Admits to drinking 2-3 beers/day, but when questioned about the BA of 0.3 admits to adding Jacy to her coffee and then drinking the beers. Suffers with chronic pain and Benign essential tremors. Is tearful when speaking about her spouse and the potential loss of her family due to her recent actions. Assessment: What happened this shift: Pt was in Tv room during shift change. Pt was cooperative during 1:1 physical assessment and took all her HS meds without any issues. Pt states that she felt into deep depression after the loss of her spouse about 2 years ago. She attended a walkathon and there she med someone that told her that if she drank some jacy, her tremors would go away. She states that she drank a little too much and thats how she started abusing it. Pt expressed her desire to quit drinking and states that she does not feel like an alcoholic, she drinks mainly because of mental pain from losing her . She talks about a list of reasons why she wants to quit drinking and believes this will help her. She states that at the top of her list is her family. She wants to reconnect with them since she has not want them to see her while she is going through this. Pt denies any S/I, H/I, and she also denies any depression or anxiety. She comes back to the group room to watch TV before going to be. Oxygen delivery is set at 2L/min. S/I, H/I: Denies. A/VH: Denies Sleep: Currently sleeping, see sleep assessment for total hours ADL's: Independent, does use a walker at times Group attendance: No group on operation shift supervisor. Were meds taken: Yes Any med S/E: None reported or observed Mental Status Exam Appearance: Clean and wearing green scrubs. Eye contact: Good, direct. Behavior: Cooperative, calm, social. Speech: soft, normal rate and rhythm Mood: pt states "I'm doing fine." Affect: Appropriate Thought process: Linear. Thought Content: Goal oriented, thinking about all the different reason she wants to quit drinking. Cognition: A/O X 4 Insight: Fair Judgment: Fair Interventions: PRN's used: None Therapeutic interventions: 1:1 assessment,active listening, therapeutic conversation, medication administration/education/monitoring, positive reinforcement, encouragement to attend groups, Q15 safety checks. Restraints/seclusion/emergency medication: N/A Justification of Continued Inpatient Treatment: Continued therapeutic support and medication adjustment and monitoring needed to provide stabilization, prevent decompensation, improve coping mechanisms decreasing risk to patient and re-admittance.
[2019-09-06] MEDS: ibuprofen tablet 400 MG TABLET PO PRN ×2 (00:49→21:24)
[2019-09-06] MEDS: acetaminophen 325mg tablet PO PRN (03:32)
[2019-09-06 07:00] VITALS: BP 106/61
[2019-09-06] MEDS: pantoprazole 40mg Tablet.DR PO SCH ×2 (07:40→20:35)
[2019-09-06] MEDS: levoTHYROXINE 75mcg tablet PO SCH (07:40)
[2019-09-06] MEDS: hydrOXYzine 25 MG tablet PO SCH ×3 (07:40→20:36)
[2019-09-06] MEDS: nicotine 14mg patch - 24hr TD SCH (07:41)
[2019-09-06] MEDS: buprenorphine/naloxone 2-0.5mg sublingual tablet SL SCH ×2 (07:41→18:28)
[2019-09-06] MEDS: duloxetine 30mg CAPSULE.DR PO SCH ×2 (07:41→12:32)
[2019-09-06] MEDS: budesonide 0.5mg/2ml UD nebule IH SCH ×2 (08:00→20:53)
[2019-09-06] MEDS: propranolol 10mg tablet PO SCH ×2 (08:00→20:36)
[2019-09-06] MEDS: NICOTINE POLACRILEX 2 MG LOZENGE BC PRN ×2 (09:32→15:06)
[2019-09-06] MEDS: hydrOXYzine 25 MG tablet PO PRN (15:06)
--- NOTE | 2019-09-06 17:51 | NUR ---
Nursing Progress Note: Melina Legal hold: Voluntary Client on involuntary status for DTS. Report received from BIBIANA Robertson with use of SBAR. Why are they here: Patient arrived on unit at 1453 via WC accompanied by JAIRO Braden. All belongings inventoried and placed in patient locker. Skin assessment completed without findings. Patient has a history of ETOH abuse following the of her spouse several years ago. She has been unable to cope with the loss and turns to alcohol to numb her pain. Family is distancing themselves from patient due to the ETOH abuse. Patient states she would rather be and if drinking causes this, she is okay with that. Admits to drinking 2-3 beers/day, but when questioned about the BA of 0.3 admits to adding Jacy to her coffee and then drinking the beers. Suffers with chronic pain and Benign essential tremors. Is tearful when speaking about her spouse and the potential loss of her family due to her recent actions. Assessment: Patient has been started on Suboxone b.i.d., and she has been able to stay in the group room socializing with peers all shift. She states that this is the first time in 22 years that she has been off of pain medications. Pt. continues to add to her daily list of reasons to quit drinking. Patient has not requested any Motrin or Tylenol this shift because her pain is being controlled with Suboxone. S/I, H/I: Denies A/VH: Denies Sleep: 6.5 hrs. NOC ADL's: Independent Group attendance: No groups today Were meds taken: Yes Any med S/E: None reported or observed Mental Status Exam Appearance: Clean and neat in personal attire. Eye contact: Good Behavior: Anxious, cooperative. Speech: Clear. Slowed speech pattern. Mood: Depressed Affect: Blunted Thought process: Linear Thought Content: Being discharged tomorrow or Wednesday. Cognition: A/Ox4 Insight: Fair Judgment: Fair Interventions: PRN's used: Atarax x 1, Nicotine elder. Therapeutic interventions: 1:1 therapeutic assessment, maintained safe therapeutic milieu, provided active listening with positive reinforcement, provided medication administration/education/monitoring as needed; Q15 safety checks. Restraints/seclusion/emergency medication: N/A Justification of Continued Inpatient Treatment: Continued therapeutic support and medication management needed to provide stabilization, prevent decompensation, improve coping mechanisms decreasing risk to patient and re-admittance.
[2019-09-06] MEDS ORDERED: buprenorphine/naloxone 2-0.5mg sublingual tablet SL ONE (18:10)
[2019-09-06 20:00] VITALS: BP 121/71
[2019-09-06] MEDS: olanzapine 10mg tablet PO SCH (20:36)
[2019-09-06] MEDS: LIDOcaine 5% patch TP SCH (20:37)
--- NOTE | 2019-09-07 00:35 | NUR ---
Nursing Progress Note: Melina Legal hold: N/A Client on Voluntary status Report received from EDOUARD Rivers with use of SBAR. Why are they here: Patient arrived on unit at 1453 via WC accompanied by JAIRO Braden. All belongings inventoried and placed in patient locker. Skin assessment completed without findings. Patient has a history of ETOH abuse following the of her spouse several years ago. She has been unable to cope with the loss and turns to alcohol to numb her pain. Family is distancing themselves from patient due to the ETOH abuse. Patient states she would rather be and if drinking causes this, she is okay with that. Admits to drinking 2-3 beers/day, but when questioned about the BA of 0.3 admits to adding Jacy to her coffee and then drinking the beers. Suffers with chronic pain and Benign essential tremors. Is tearful when speaking about her spouse and the potential loss of her family due to her recent actions. Assessment: What happened this shift: Pt was observed ambulating the isles during shift change. This RN greeted her and she states that she had a pretty good day although she really didn't do much. She continues to pace the halls and socialize appropriately with other patients. Pt states that she is ready to go home tomorrow and she plans to throw away all her alcohol as soon as she gets home. She again talks about the list that she made for reasons why she needs to quit drinking and states that she wants to make copies and hang it on every room in her house. She denies any S/I, H/I, and does not appear to be anxious. Pt complains of her leg being swollen. They do appear to be edematous but no pain. Pt has her legs elevated while she sleeps. Oxygen is set up at 2L per nasal canula while she sleeps. S/I, H/I: Denies. A/VH: Denies Sleep: Currently sleeping, see sleep assessment for total hours ADL's: Independent Group attendance: No group on rn night. Were meds taken: Yes Any med S/E: None reported or observed Mental Status Exam Appearance: Clean and wearing green scrubs. Eye contact: Good, direct. Behavior: Cooperative, calm, social. Speech: Soft, normal rate and rhythm Mood: Somewhat anxious but appears to be optimistic. Affect: Appropriate Thought process: Linear. Thought Content: Discharge tomorrow, her legs being swollen, medications. Cognition: A/O X 4 Insight: Fair Judgment: Fair Interventions: PRN's used: None Therapeutic interventions: 1:1 assessment,active listening, therapeutic conversation, medication administration/education/monitoring, positive reinforcement, encouragement to attend groups, Q15 safety checks. Restraints/seclusion/emergency medication: N/A Justification of Continued Inpatient Treatment: Continued therapeutic support and medication adjustment and monitoring needed to provide stabilization, prevent decompensation, improve coping mechanisms decreasing risk to patient and re-admittance.
[2019-09-07] MEDS: NICOTINE POLACRILEX 2 MG LOZENGE BC PRN (03:51)
[2019-09-07] MEDS: acetaminophen 325mg tablet PO PRN (03:55)
[2019-09-07] MEDS: budesonide 0.5mg/2ml UD nebule IH SCH (07:48)
[2019-09-07 08:00] VITALS: BP 134/71
[2019-09-07] MEDS: levoTHYROXINE 75mcg tablet PO SCH (08:06)
[2019-09-07] MEDS: hydrOXYzine 25 MG tablet PO SCH ×2 (08:06→12:48)
[2019-09-07] MEDS: pantoprazole 40mg Tablet.DR PO SCH (08:07)
[2019-09-07] MEDS: duloxetine 30mg CAPSULE.DR PO SCH ×2 (08:07→11:44)
[2019-09-07] MEDS: propranolol 10mg tablet PO SCH (08:07)
[2019-09-07] MEDS: nicotine 14mg patch - 24hr TD SCH (08:08)
--- NOTE | 2019-09-07 09:44 | NUR ---
Reassessment: great appetite, 100% PO heart healthy diet. No nutrition problem at this time. Recommend: 1. continue heart healthy diet 2. bowel care as needed 3. weekly weights Addendum: 09/07/19 at [address] Amended: Links added.
[2019-09-07] MEDS ORDERED: buprenorphine/naloxone 8mg/2mg SL tablet SL ONE (10:35)
[2019-09-07] MEDS ORDERED: buprenorphine/naloxone 2-0.5mg sublingual tablet SL ONE (11:05)
[2019-09-07] MEDS ORDERED: DULO30CA52 PO ×2 (12:28)
[2019-09-07] MEDS ORDERED: HYDR-3686 PO (12:28)
[2019-09-07] MEDS ORDERED: PROP10TA10 PO (12:28)
[2019-09-07] MEDS ORDERED: NICO-631 TD (12:28)
[2019-09-07] MEDS: hydrOXYzine 25 MG tablet PO PRN (16:14)
[2019-09-07] MEDS ORDERED: BUPR1TAB44 SL ×2 (16:24→16:31)
[2019-09-07] MEDS ORDERED: budesonide 0.5mg/2ml UD nebule IH SCH (17:30)
[2019-09-07] MEDS ORDERED: buprenorphine/naloxone 2-0.5mg sublingual tablet SL SCH ×2 (17:55→20:00)
--- NOTE | 2019-09-07 18:08 | NUR ---
Nursing Discharge Note Patient discharged at 1810 Patient will be transported home via [facility]. Discharge instructions provided to patient and patient allowed time to ask questions. Patient states that she has improved since her time on the unit. She denies thoughts of self-harm and has plan that she hopes to follow to continue not drinking alcohol. Patient has been scheduled with Psychiatrist, Dr Phelps on 09/12/19 at 1:30 PM and PCP Bryon Conner NP, on 09/11/19 at 1:15 PM. All inventoried items provided back to patient. No acute physical or emotional distress observed. Patient is offered nicotine replacement.
[2019-09-08] MEDS ORDERED: buprenorphine/naloxone 2-0.5mg sublingual tablet SL SCH (07:30)
[2019-09-08] MEDS ORDERED: ONDA4TAB6 PO (08:48)
[2019-09-08] MEDS ORDERED: POTA10TA36 PO (10:35)
[2019-09-08] MEDS ORDERED: FURO-150 PO (10:35)
== END 2019-09-07 18:15 | disposition home or self-care (01) | DRG 885 ==
LOC: ADULT MH 13:23
PROVIDERS: ADMIT Psychiatry & Neurology Psychiatry; ATTEND Psychiatry & Neurology Psychiatry
DX: F33.2 Major depressive disorder, recurrent severe without psychotic features (principal); R45.851 Suicidal ideations; F11.20 Opioid dependence, uncomplicated; F17.210 Nicotine dependence, cigarettes, uncomplicated; H53.8 Other visual disturbances; W01.0XXA Fall on same level from slipping, tripping and stumbling without subsequent striking against object, initial encounter; R25.1 Tremor, unspecified; R42 Dizziness and giddiness; E03.9 Hypothyroidism, unspecified; F10.20 Alcohol dependence, uncomplicated; R03.0 Elevated blood-pressure reading, without diagnosis of hypertension; F41.9 Anxiety disorder, unspecified; J44.9 Chronic obstructive pulmonary disease, unspecified; K21.9 Gastro-esophageal reflux disease without esophagitis; Z90.710 Acquired absence of both cervix and uterus; Z83.3 Family history of diabetes mellitus; Y93.89 Activity, other specified; Y92.89 Other specified places as the place of occurrence of the external cause; Y99.8 Other external cause status; Z28.21 Immunization not carried out because of patient refusal
CPT/HCPCS: 36415; 80053; 80061; 80305; 80320; 80329; 81001; 83036; 83735; 84439; 84443; 85025; 87081; 93005; 94640; 94760; 99285; J7626; Q2037; Z7610

== ENCOUNTER 2019-09-08 08:23 | Emergency (ER) | payer MEDICARE ==
[~2019-09-08] VITALS: Ht 157.5 cm; Wt 70.5 kg
[~2019-09-08 08:23] MED LIST changes: +BUPR1TAB44 SL; +DULO30CA52 PO; -DULO60CA65 PO; +HYDR-3686 PO; -HYDR50TA65 PO; -LORA-269 PO; +NICO-631 TD; +PROP10TA10 PO
[2019-09-08] MEDS ORDERED: meclizine 12.5mg tablet PO ONE (08:45)
[2019-09-08] MEDS ORDERED: normal saline 1000ML IV soln IVB ONE (08:45)
[2019-09-08] MEDS ORDERED: ipratropium/albuterol 3ml nebule NEB ONE (08:45)
[2019-09-08] MEDS ORDERED: ondansetron 4mg rapidly disintigrating tab PO ONE (08:45)
[2019-09-08] MEDS ORDERED: ONDA4TAB6 PO (08:48)
[2019-09-08 09:16] LABS: BASOPHILS # (AUTO) 0.1 X10'3 (0-0.2); BASOPHILS % (AUTO) 0.6 % (0-1); EOSINOPHILS % (AUTO) 0.1 % (0-6); HEMATOCRIT 41.6 % (35.0-45.0); HEMOGLOBIN 14.1 g/dl (12.0-16.0); LYMPHOCYTES % (AUTO) 10.3 % (21-51); MEAN CORPUSCULAR HEMOGLOBIN 33.3 PG (27.0-31.0); MEAN CORPUSCULAR HGB CONC 33.8 g/dL (33.0-36.5); MEAN CORPUSCULAR VOLUME 98.5 FL (78-98); MEAN PLATELET VOLUME 8.4 FL (7.4-10.4); MONOCYTES # (AUTO) 0.9 X10'3 (0-0.9); MONOCYTES % (AUTO) 8.9 % (2-12); NEUTROPHILS # (AUTO) 7.6 X10'3 (1.8-7.7); NEUTROPHILS % (AUTO) 80.1 % (42-75); PLATELET COUNT 270 X10'3 (140-440); RED BLOOD COUNT 4.23 X10'6 (4.20-5.60); RED CELL DISTRIBUTION WIDTH 13.4 % (11.5-14.5); WHITE BLOOD COUNT 9.5 X10'3 (4.5-11.0)
--- NOTE | 2019-09-08 09:18 | NUR ---
Patient tolerating sips of water. Refused Zofran but accepted meclizine. RN will continue to monitor.
[2019-09-08 09:24] LABS: ALANINE AMINOTRANSFERASE 21 U/L (12-78); ALBUMIN 3.4 G/DL (3.4-5.0); ALBUMIN/GLOBULIN RATIO 0.9 (1.1-1.5); ALKALINE PHOSPHATASE 97 IU/L (46-116); ANION GAP 5 (8-16); ASPARTATE AMINO TRANSFERASE 18 U/L (10-37); BILIRUBIN,TOTAL 0.3 MG/DL (0.1-1.0); BLOOD UREA NITROGEN 10 MG/DL (7-18); BUN/CREATININE RATIO 14.1 (6.6-38.0); CALCIUM 8.6 MG/DL (8.5-10.1); CHLORIDE 102 MMOL/L (99-107); CREATININE 0.71 MG/DL (0.40-0.90); ETHANOL < 0.010 GM/DL (0.0-0.010); GLUCOSE 140 MG/DL (70-104); POTASSIUM 3.8 MMOL/L (3.5-5.1); SODIUM 139 MMOL/L (135-145); TOTAL CARBON DIOXIDE 32.5 MMOL/L (24-32); eGFR 82 ML/MIN
[2019-09-08 09:34] LABS: URINE AMPHETAMINE SCREEN NEGATIVE (Neg); URINE BARBITUATE SCREEN POSITIVE (Neg); URINE BENZODIAZEPINES SCREEN NEGATIVE (Neg); URINE CANNABINOID SCREEN NEGATIVE (Neg); URINE COCAINE SCREEN NEGATIVE (Neg); URINE METHADONE SCREEN NEGATIVE (Neg); URINE OPIATE SCREEN NEGATIVE (Neg); URINE PHENCYCLIDINE SCREEN NEGATIVE (Neg)
[2019-09-08] MEDS ORDERED: potassium chloride 8mEq ER tablet PO STA (10:11)
[2019-09-08] MEDS ORDERED: furosemide 10 MG/1 ML 10ml inj IV ONE (10:15)
[2019-09-08] MEDS ORDERED: ibuprofen tablet 400 MG TABLET PO ONE (10:35)
[2019-09-08] MEDS ORDERED: POTA10TA36 PO (10:35)
[2019-09-08] MEDS ORDERED: FURO-150 PO (10:35)
[2019-09-08] MEDS ORDERED: ibuprofen 200mg tablet PO ONE (10:35)
[2019-09-08 10:39] LABS: TROPONIN I < 0.04 NG/ML (0.0-0.05)
--- NOTE | 2019-09-08 11:09 | NUR ---
RN attempted to titrate patient off supplemental 02. She rapidly desatted to 83% on room air while transferring from commode to bed. Returned to 96% saturations upon replacement of 2LPM
[2019-09-08] MEDS ORDERED: methylPREDNISolone sod succ 125mg/2ml vial IV ONE (12:00)
--- NOTE | 2019-09-08 12:32 | NUR ---
RN attempted to wean patient from O2 again, again desatted to 83%. Solu-medrol given as ordered, patient has home O2. EDMD Oppezzo at bedside instructed patient to use home O2 24hrs/day and bring discharge paperwork/med list to outpt appt Wednesday. Patient voiced understanding.
[2019-09-08 12:40] VITALS: BP 132/78
== END 2019-09-08 12:46 | disposition home or self-care (01) ==
LOC: ER 08:24
DX: R42 Dizziness and giddiness (principal); R60.9 Edema, unspecified; R09.89 Other specified symptoms and signs involving the circulatory and respiratory systems; R11.2 Nausea with vomiting, unspecified; I10 Essential (primary) hypertension; J44.9 Chronic obstructive pulmonary disease, unspecified; G89.29 Other chronic pain; M81.0 Age-related osteoporosis without current pathological fracture; E03.9 Hypothyroidism, unspecified; Z90.710 Acquired absence of both cervix and uterus; Z88.5 Allergy status to narcotic agent
CPT/HCPCS: 36415; 71045; 80053; 80305; 80320; 83880; 84484; 85025; 93005; 94640; 96361; 96374; 96375; 99285; J1940; J2930; J7030; J8597

== ENCOUNTER 2019-10-19 20:54 | Emergency (ER) | payer MEDICARE ==
[~2019-10-19] VITALS: Ht 160 cm; Wt 65.9 kg
[~2019-10-19 20:54] MED LIST changes: +ONDA4TAB6 PO; +POTA10TA36 PO
[2019-10-19] MEDS ORDERED: LORazepam 1 MG tablet PO PRN (21:50)
[2019-10-19 22:16] LABS: BASOPHILS # (AUTO) 0.1 X10'3 (0-0.2); BASOPHILS % (AUTO) 0.7 % (0-1); EOSINOPHILS % (AUTO) 0.2 % (0-6); HEMATOCRIT 49.2 % (35.0-45.0); LYMPHOCYTES # (AUTO) 1.5 X10'3 (1.1-4.8); LYMPHOCYTES % (AUTO) 12.7 % (21-51); MEAN CORPUSCULAR HEMOGLOBIN 33.2 PG (27.0-31.0); MEAN CORPUSCULAR HGB CONC 32.5 g/dL (33.0-36.5); MEAN CORPUSCULAR VOLUME 102.2 FL (78-98); MEAN PLATELET VOLUME 8.2 FL (7.4-10.4); MONOCYTES # (AUTO) 0.6 X10'3 (0-0.9); MONOCYTES % (AUTO) 5.5 % (2-12); NEUTROPHILS # (AUTO) 9.4 X10'3 (1.8-7.7); NEUTROPHILS % (AUTO) 80.9 % (42-75); PLATELET COUNT 148 X10'3 (140-440); RED BLOOD COUNT 4.81 X10'6 (4.20-5.60); RED CELL DISTRIBUTION WIDTH 14.1 % (11.5-14.5); WHITE BLOOD COUNT 11.6 X10'3 (4.5-11.0)
[2019-10-19 22:28] LABS: ALANINE AMINOTRANSFERASE 28 U/L (12-78); ALBUMIN 3.4 G/DL (3.4-5.0); ALBUMIN/GLOBULIN RATIO 1.2 (1.1-1.5); ALKALINE PHOSPHATASE 102 IU/L (46-116); ANION GAP 13 (8-16); ASPARTATE AMINO TRANSFERASE 36 U/L (10-37); BILIRUBIN,TOTAL 0.8 MG/DL (0.1-1.0); BLOOD UREA NITROGEN 10 MG/DL (7-18); CALCIUM 7.9 MG/DL (8.5-10.1); CHLORIDE 107 MMOL/L (99-107); CREATININE 0.77 MG/DL (0.40-0.90); GLUCOSE 86 MG/DL (70-104); SODIUM 149 MMOL/L (135-145); TOTAL CARBON DIOXIDE 28.7 MMOL/L (24-32); TOTAL PROTEIN 6.3 G/DL (6.4-8.2); eGFR 75 ML/MIN
[2019-10-19 22:42] LABS: ETHANOL 0.314 GM/DL (0.0-0.010)
[2019-10-19 22:55] LABS: ACETAMINOPHEN < 2.0 UG/ML (10-30)
[2019-10-19] MEDS ORDERED: azithromycin 250mg tablet PO ONE (23:20)
--- NOTE | 2019-10-20 | NUR ---
COVID SCREEN NEGATIVE.
--- NOTE | 2019-10-20 00:16 | NUR ---
PT P AT BEDSIDE TO USE THE BSC. STATES SHE "HAS TO GO REALLY BAD, BUT I CAN'T PEE". DOES NOT KNOW WHY SHE IS HERE TONIGHT.
[2019-10-20 00:35] LABS: CLARITY,URINE SLIGHTLY CLOUDY (Clear); COLOR,URINE YELLOW (Yellow); GLUCOSE, URINE NEGATIVE (Neg); KETONES,URINE 15 mg/dl (Neg); LEUKOCYTE ESTERASE ,URINE NEGATIVE (Neg); NITRITES, URINE NEGATIVE (Neg); OCCULT BLOOD,URINE NEGATIVE (Neg); PROTEIN,URINE 30 mg/dl (Neg)
--- NOTE | 2019-10-20 00:35 | NUR ---
PT IS NOW ABLE TO ANSWER QUESTIONS. SHE STATES SHE IS WAS FEELING LIKE SHE WANTED TO BECAUSE SHE DRANK TOO MUCH ETOH. SHE STATES SHE NO LONGER WANTS TO . SHE DENIES EVER ATTEMPTING SUSICEDE
[2019-10-20 00:46] LABS: UA COLLECTION TYPE OTHER; URINE AMPHETAMINE SCREEN NEGATIVE (Neg); URINE BARBITUATE SCREEN NEGATIVE (Neg); URINE BENZODIAZEPINES SCREEN NEGATIVE (Neg); URINE CANNABINOID SCREEN NEGATIVE (Neg); URINE COCAINE SCREEN NEGATIVE (Neg); URINE METHADONE SCREEN NEGATIVE (Neg); URINE OPIATE SCREEN NEGATIVE (Neg); URINE PHENCYCLIDINE SCREEN NEGATIVE (Neg)
--- NOTE | 2019-10-20 00:48 | NUR ---
0010- PT REPORTS SHE IS UNSTEADY AND IS DIZZY AND "HAS VERTIGO" ALL THE TIME. STATES SHE FELL "2 WEEKS AGO AND SINCE THEN АННА BEEN DIZZY". STATES IT IS SEPTEMBER 2019 AND IS OFF ON THE EXACT DATE. IS CORRECT THAT SHE IS AT "THE OTHER HOSPITAL IN [place], NOT [facility]". STATES SHE HAS COPD AND USES 2 L SUPP O2 AAT. STATES SHE LIVES ALONE AND HAS CHILDREN BUT "THEY ARE SPOILED...THEY DONT HELP ME OR LOOK IN ON ME". ALSO REPORTING SHE TAKES MANY MEDS, INCLUDING SUBOXONE BID FOR HER CHRONIC BACK PAIN AND "TYROID PILL AND FOR MY BLOOD PRESSURE". HAS NOT HAS ANY OF HER MEDS IN THE PAST 24 HRS BECAUSE SHE HAS BEEN FEELING ILL.
[2019-10-20 00:49] LABS: BACTERIA,URINE NONE SEEN /HPF (Neg); RBC,URINE NONE SEEN /HPF (0-2); SQUAMOUS EPITHELIAL CELL,UR FEW /LPF (FEW)
[2019-10-20 00:50] LABS: AMORPHOUS URATES 1+; HYALINE CASTS 0-3 /LPF (NEGATIVE); MUCUS STRANDS MANY /LPF (Neg); RENAL CELLS, URINE FEW /HPF
[2019-10-20] MEDS ORDERED: ipratropium/albuterol 3ml nebule NEB ONE (00:50)
--- NOTE | 2019-10-20 01:04 | NUR ---
PT MOVED TO OVERFLOW BED 25 FROM MAIN ER BED 9. BROUGHT OVER IN WC ON O2. SATS 89% ON 2 LITERS. RT NOW AT BEDSIDE FOR SVN. PT GIVEN JUICE AND REPORTS SHE HAS NOT EATEN IN A FEW DAYS AND THAT SHE'S BEEN GETTING "SICK TO MY STOMACH" DECLINED ANY FOOD, BUT DRINKING JUICES. DRESSED IN GREEN SCRUBS. NEEDS MED REC ADDRESSED. PT REPORTS SHE DOES NOT KNOW ALL OF THE MEDS SHE TAKES OR THE EXACT DOSING AND THAT WE SHOULD HAVE THIS IN "YOUR COMPUTERS SINCE YOU GIVE THESE TO ME". STATES SHE DOES TAKE SUBOXONE AND NEEDS THE DOSE SOON BECAUSE HER PAIN IS BAD.
[2019-10-20] MEDS ORDERED: DULO60CA65 PO (01:30)
[2019-10-20] MEDS ORDERED: PROP10TA10 PO (01:30)
[2019-10-20] MEDS ORDERED: HYDR-3686 PO (01:30)
[2019-10-20] MEDS ORDERED: albuterol 2.5 MG/3 ML nebule NEB PRN (01:40)
[2019-10-20] MEDS ORDERED: BUPR1TAB44 SL (03:27)
[2019-10-20] MEDS ORDERED: acetaminophen 325mg tablet PO ONE (05:10)
[2019-10-20] MEDS: hydrOXYzine 25 MG tablet PO PRN ×2 (07:32→22:33)
[2019-10-20] MEDS ORDERED: azithromycin 250mg tablet PO ONE (08:00)
[2019-10-20] MEDS ORDERED: ondansetron 4mg rapidly disintigrating tab PO ONE (08:20)
[2019-10-20] MEDS: buprenorphine/naloxone 2-0.5mg sublingual tablet SL SCH ×2 (08:23→20:36)
[2019-10-20] MEDS: propranolol 10mg tablet PO SCH ×2 (09:26→20:36)
[2019-10-20] MEDS: LORazepam 1 MG tablet PO PRN ×3 (09:26→20:36)
[2019-10-20] MEDS: levoTHYROXINE 75mcg tablet PO SCH (09:26)
[2019-10-20] MEDS: thiamine 100mg tablet PO SCH (09:26)
[2019-10-20] MEDS: duloxetine 30mg CAPSULE.DR PO SCH (09:26)
[2019-10-20] MEDS: multivitamins, therapeutics tablet PO SCH (09:26)
[2019-10-20] MEDS: folic acid 1mg tablet PO SCH (09:27)
[2019-10-20] MEDS: TYPE IN GENERIC & BRAND NAME OF PATIENT MED STRENGTH & FORM PO SCH (09:27)
[2019-10-20] MEDS: pantoprazole 40mg Tablet.DR PO SCH ×2 (09:30→20:36)
--- NOTE | 2019-10-20 14:53 | NUR ---
Jt [facility], engaged in psychosocial assessment with pt
--- NOTE | 2019-10-20 20:59 | NUR ---
Patient is awake and exhibiting hand trembling. Rx night med's given. Patient in view from nursing station.
[2019-10-20] MEDS ORDERED: olanzapine 10mg tablet PO SCH (21:00)
--- NOTE | 2019-10-20 22:13 | NUR ---
Patient had taken her nasal cannula out of her nose. It was put back in. Patient directed to not take it out of her nose. Patient exhibits understanding. This is the third time the patient has been noncompliant. The patient agrees to leave it in place and attempt sleep.
--- NOTE | 2019-10-20 22:37 | NUR ---
Patient is awake and out of bed off oxygen. Patient redirected back to bed. Oxygen put back in nares. This grant writer will address patients agitation with ER MD.
[2019-10-20] MEDS: ziprasidone 20mg capsule PO SCH (23:05)
--- NOTE | 2019-10-20 23:50 | NUR ---
Patient remains agitated. She refuses to sleep. Patient is responding to internal stimuli. Cannula is adjusted and put back into place once more.
[2019-10-21] MEDS ORDERED: LORazepam 2 mg/ml vial IM ONE (00:10)
[2019-10-21] MEDS ORDERED: haloperidol lactate 5mg/ml inj IM ONE (00:10)
[2019-10-21] MEDS ORDERED: diphenhydrAMINE 50 mg/ml inj IM ONE (00:10)
--- NOTE | 2019-10-21 00:10 | NUR ---
Patients status discussed with Dr. Lake. Orders received for B-52 IM now.
--- NOTE | 2019-10-21 01:18 | NUR ---
Patient is sleeping quietly. SaO2 is 93 percent on 2LPM by N/C. See vital signs. Two rails up. Continous SaO2 monitoring. Low fowlers position in bed. Color is good. Skin is W/D. Two rails up. Bed is locked in low position. In view from nursing station. Close observation by choco.
--- NOTE | 2019-10-21 02:19 | NUR ---
Patient sleeping quietly, low fowlers position. Sa02 is 90 percent on 2 LPM.
--- NOTE | 2019-10-21 05:43 | NUR ---
Patient sleeping low fowlers position, knees flexed. Remaining on 02 at 2 LPM by N/C.
--- NOTE | 2019-10-21 07:09 | NUR ---
sleeping on back respiration unlabored
[2019-10-21] MEDS: TYPE IN GENERIC & BRAND NAME OF PATIENT MED STRENGTH & FORM PO SCH (08:00)
--- NOTE | 2019-10-21 08:01 | NUR ---
Chilango Locke [facility] called to report a 2view cxr was being ordered d/t results of single view cxr previously taken.
--- NOTE | 2019-10-21 08:12 | NUR ---
asleep on back
--- NOTE | 2019-10-21 08:13 | NUR ---
Accepted to [facility] pending 2 view chest xray
[2019-10-21] MEDS: buprenorphine/naloxone 2-0.5mg sublingual tablet SL SCH (08:50)
[2019-10-21] MEDS: ziprasidone 20mg capsule PO SCH (08:54)
[2019-10-21] MEDS: thiamine 100mg tablet PO SCH (08:54)
[2019-10-21] MEDS: levoTHYROXINE 75mcg tablet PO SCH (08:54)
[2019-10-21] MEDS: multivitamins, therapeutics tablet PO SCH (08:54)
[2019-10-21] MEDS: folic acid 1mg tablet PO SCH (08:54)
[2019-10-21] MEDS: propranolol 10mg tablet PO SCH (08:54)
[2019-10-21] MEDS: pantoprazole 40mg Tablet.DR PO SCH (08:54)
[2019-10-21] MEDS: duloxetine 30mg CAPSULE.DR PO SCH (08:55)
[2019-10-21] MEDS: LORazepam 1 MG tablet PO PRN (09:04)
--- NOTE | 2019-10-21 09:09 | NUR ---
eating breakfast noticable tremors
--- NOTE | 2019-10-21 09:30 | NUR ---
back from 2 view chest x ray
--- NOTE | 2019-10-21 10:02 | NUR ---
sleeping on back
[2019-10-21 10:59] VITALS: BP 137/72
--- NOTE | 2019-10-21 11:03 | NUR ---
Resting in bed
[2019-10-23] MEDS ORDERED: NICO-687 TD (12:56)
[2019-10-23] MEDS ORDERED: PRED10TA23 PO (12:56)
[2019-10-23] MEDS ORDERED: DOXY100C2 PO (12:56)
[2019-10-29] MEDS ORDERED: OLAN10TA19 PO (09:11)
[2019-10-29] MEDS ORDERED: HYDR-3686 PO (09:11)
[2019-10-29] MEDS ORDERED: TRAZ-251 PO (09:11)
[2019-10-29] MEDS ORDERED: DULO30CA52 PO (09:11)
[2019-10-29] MEDS ORDERED: PRED10TA23 PO (09:11)
[2019-10-29] MEDS ORDERED: NICO-687 TD (09:11)
[2019-10-29] MEDS ORDERED: DOXY-224 PO (09:11)
[2019-10-29] MEDS ORDERED: BUPR1TAB44 SL ×2 (09:11→14:51)
== END 2019-10-21 11:04 ==
LOC: ER 20:55
DX: R45.851 Suicidal ideations (principal); I10 Essential (primary) hypertension; J44.9 Chronic obstructive pulmonary disease, unspecified; E03.9 Hypothyroidism, unspecified; M19.90 Unspecified osteoarthritis, unspecified site; G89.29 Other chronic pain; M81.0 Age-related osteoporosis without current pathological fracture; F32.9 Major depressive disorder, single episode, unspecified; Z90.710 Acquired absence of both cervix and uterus; Z98.890 Other specified postprocedural states; Z60.2 Problems related to living alone; Z88.5 Allergy status to narcotic agent; Z79.899 Other long term (current) drug therapy
CPT/HCPCS: 82948; 99285; J1200; J1630; J2060; Z7610; 36415; 71045; 71046; 80053; 80305; 80320; 80329; 81001; 84443; 85025; 87635

== ENCOUNTER 2021-03-18 22:04 | Emergency (ER) | payer MEDICARE ==
[~2021-03-18] VITALS: Ht 160 cm; Wt 72.7 kg
[~2021-03-18 22:04] MED LIST changes: +ALBU8.5H17 IH; -ALBU8.5H8 IH; +DOXY-224 PO; -NICO-631 TD; +NICO-687 TD; -OLAN10TA19 PO; +OLAN10TA73 PO; -ONDA4TAB6 PO; -PANT40TA4 PO; +PANT40TA54 PO; -POTA10TA36 PO; +PRED10TA23 PO; -PROP20TA6 PO; +TRAZ-251 PO
[2021-03-18 22:34] VITALS: BP 149/75
[2021-03-18 22:40] LABS: BASOPHILS % (AUTO) 0.7 % (0-1); EOSINOPHILS # (AUTO) 0.1 X10'3 (0-0.9); EOSINOPHILS % (AUTO) 1.4 % (0-6); HEMATOCRIT 38.7 % (35.0-45.0); LYMPHOCYTES # (AUTO) 1.7 X10'3 (1.1-4.8); LYMPHOCYTES % (AUTO) 30.1 % (21-51); MEAN CORPUSCULAR HEMOGLOBIN 33.9 PG (27.0-31.0); MEAN CORPUSCULAR HGB CONC 33.7 g/dL (33.0-36.5); MEAN CORPUSCULAR VOLUME 100.6 FL (78-98); MEAN PLATELET VOLUME 9.3 FL (7.4-10.4); MONOCYTES # (AUTO) 0.8 X10'3 (0-0.9); MONOCYTES % (AUTO) 13.9 % (2-12); NEUTROPHILS % (AUTO) 53.9 % (42-75); PLATELET COUNT 183 X10'3 (140-440); RED BLOOD COUNT 3.85 X10'6 (4.20-5.60); RED CELL DISTRIBUTION WIDTH 14.1 % (11.5-14.5); WHITE BLOOD COUNT 5.6 X10'3 (4.5-11.0)
[2021-03-18 22:53] LABS: ALANINE AMINOTRANSFERASE 19 U/L (12-78); ALBUMIN 3.5 G/DL (3.4-5.0); ALBUMIN/GLOBULIN RATIO 1.1 (1.1-1.5); ALKALINE PHOSPHATASE 97 IU/L (46-116); ANION GAP 7 (8-16); ASPARTATE AMINO TRANSFERASE 14 U/L (10-37); BILIRUBIN,TOTAL 0.3 MG/DL (0.1-1.0); BLOOD UREA NITROGEN 23 MG/DL (7-18); BUN/CREATININE RATIO 25.3 (6.6-38.0); CALCIUM 8.5 MG/DL (8.5-10.1); CHLORIDE 105 MMOL/L (99-107); CREATININE 0.91 MG/DL (0.40-0.90); GLUCOSE 109 MG/DL (70-104); SODIUM 139 MMOL/L (135-145); TOTAL CARBON DIOXIDE 27.2 MMOL/L (24-32); TOTAL PROTEIN 6.7 G/DL (6.4-8.2); eGFR 61 ML/MIN
== END 2021-03-18 23:35 | disposition home or self-care (01) ==
LOC: ER 22:04
DX: I10 Essential (primary) hypertension (principal); R25.1 Tremor, unspecified; R06.02 Shortness of breath; J44.9 Chronic obstructive pulmonary disease, unspecified; E03.9 Hypothyroidism, unspecified; M19.90 Unspecified osteoarthritis, unspecified site; G89.29 Other chronic pain; M81.0 Age-related osteoporosis without current pathological fracture; Z90.710 Acquired absence of both cervix and uterus; Z79.899 Other long term (current) drug therapy; Z72.89 Other problems related to lifestyle
CPT/HCPCS: 36415; 80053; 83880; 84484; 85025; 93005; 99284

== ENCOUNTER 2022-03-29 06:46 | Emergency (ER) | payer MEDICARE, OTHER ==
[~2022-03-29] VITALS: Ht 160 cm; Wt 72.0 kg
[2022-03-29] MEDS ORDERED: ondansetron/PF 4mg/2ml inj IV ONE (07:15)
--- NOTE | 2022-03-29 08:01 | NUR ---
PT PLACED ON 2 LITER OF OXYGEN DUE TO OXYGEN SATURATION AT 85 PREVIOUSLY. PT INFORMED US, THAT SHE IS ON OXYGEN AT HOME. PT IS CURRENTLY SITTING AT 94 ON TWO LITERS, AND APPEARS TO BE IN NO APPARANT DISTRESS.
[2022-03-29] MEDS ORDERED: LIDOcaine 5% patch TP SCH (08:10)
[2022-03-29] MEDS ORDERED: morphine 4 MG/ML inj SYRINge IV ONE (08:10)
[2022-03-29] MEDS ORDERED: ibuprofen tablet 400 MG TABLET PO ONE (08:10)
[2022-03-29 10:00] VITALS: BP 130/64
[2022-03-29] MEDS ORDERED: acetaminophen 325mg tablet PO ONE (10:25)
== END 2022-03-29 10:48 | disposition home or self-care (01) ==
LOC: ER 06:47
DX: M54.42 Lumbago with sciatica, left side (principal); M25.552 Pain in left hip; I10 Essential (primary) hypertension; J44.9 Chronic obstructive pulmonary disease, unspecified; E03.9 Hypothyroidism, unspecified; M19.90 Unspecified osteoarthritis, unspecified site; F32.A Depression, unspecified; Z90.710 Acquired absence of both cervix and uterus; Z98.890 Other specified postprocedural states; Z72.89 Other problems related to lifestyle; Z60.2 Problems related to living alone; Z88.6 Allergy status to analgesic agent; Z79.2 Long term (current) use of antibiotics; Z79.899 Other long term (current) drug therapy
CPT/HCPCS: 72100; 72170; 73502; 96374; 96375; 99285; J2270; J2405; A4615

== ENCOUNTER 2022-04-18 15:49 | Emergency (ER) | payer OTHER ==
[~2022-04-18] VITALS: Ht 160 cm; Wt 68.2 kg
[2022-04-18 16:09] VITALS: BP 100/49
[2022-04-18] MEDS ORDERED: ondansetron 4mg rapidly disintigrating tab PO ONE (16:50)
[2022-04-18] MEDS ORDERED: diazepam 5mg tablet PO ONE (16:50)
[2022-04-18 17:23] LABS: BASOPHILS % (AUTO) 0.6 % (0-1); EOSINOPHILS # (AUTO) 0.2 X10'3 (0-0.9); EOSINOPHILS % (AUTO) 2.8 % (0-6); HEMATOCRIT 39.8 % (35.0-45.0); HEMOGLOBIN 13.8 g/dl (12.0-16.0); LYMPHOCYTES # (AUTO) 2.6 X10'3 (1.1-4.8); LYMPHOCYTES % (AUTO) 30.9 % (21-51); MEAN CORPUSCULAR HEMOGLOBIN 34.4 PG (27.0-31.0); MEAN CORPUSCULAR HGB CONC 34.6 g/dL (33.0-36.5); MEAN CORPUSCULAR VOLUME 99.4 FL (78-98); MEAN PLATELET VOLUME 8.6 FL (7.4-10.4); MONOCYTES % (AUTO) 12.1 % (2-12); NEUTROPHILS # (AUTO) 4.5 X10'3 (1.8-7.7); NEUTROPHILS % (AUTO) 53.6 % (42-75); PLATELET COUNT 308 X10'3 (140-440); RED CELL DISTRIBUTION WIDTH 13.1 % (11.5-14.5); WHITE BLOOD COUNT 8.4 X10'3 (4.5-11.0)
[2022-04-18 17:25] LABS: ALANINE AMINOTRANSFERASE 15 U/L (12-78); ALBUMIN 3.6 G/DL (3.4-5.0); ALBUMIN/GLOBULIN RATIO 1.1 (1.1-1.5); ALKALINE PHOSPHATASE 66 IU/L (46-116); ANION GAP 10 (8-16); ASPARTATE AMINO TRANSFERASE 16 U/L (10-37); BILIRUBIN,TOTAL 0.4 MG/DL (0.1-1.0); BLOOD UREA NITROGEN 16 MG/DL (7-18); BUN/CREATININE RATIO 13.8 (6.6-38.0); CALCIUM 9.2 MG/DL (8.5-10.1); CHLORIDE 100 MMOL/L (99-107); CREATININE 1.16 MG/DL (0.40-0.90); GLUCOSE 126 MG/DL (70-104); POTASSIUM 4.1 MMOL/L (3.5-5.1); SODIUM 138 MMOL/L (135-145); TOTAL CARBON DIOXIDE 28.1 MMOL/L (24-32); TOTAL PROTEIN 6.8 G/DL (6.4-8.2); eGFR 46 ML/MIN
[2022-04-18] MEDS ORDERED: DIAZ10TA PO (18:00)
== END 2022-04-18 18:09 | disposition home or self-care (01) ==
LOC: ER 15:50
DX: M54.42 Lumbago with sciatica, left side (principal); J44.9 Chronic obstructive pulmonary disease, unspecified; I10 Essential (primary) hypertension; E03.9 Hypothyroidism, unspecified; M19.90 Unspecified osteoarthritis, unspecified site; F32.9 Major depressive disorder, single episode, unspecified; G89.29 Other chronic pain; Z90.710 Acquired absence of both cervix and uterus; Z88.8 Allergy status to other drugs, medicaments and biological substances; Z98.890 Other specified postprocedural states; Z72.89 Other problems related to lifestyle; Z60.2 Problems related to living alone; Z88.6 Allergy status to analgesic agent; Z79.899 Other long term (current) drug therapy
CPT/HCPCS: 36415; 80053; 85025; 93005; 99284

== ENCOUNTER 2022-04-20 12:42 | Emergency (ER) | payer OTHER ==
[~2022-04-20] VITALS: Ht 160 cm; Wt 68.2 kg
[~2022-04-20 12:42] MED LIST changes: +DIAZ10TA PO
[2022-04-20 13:38] VITALS: BP 174/87
[2022-04-20] MEDS ORDERED: GABA300C PO ×2 (14:26→15:26)
[2022-04-20] MEDS ORDERED: oxyCODONE/APAP 10/325mg tablet PO ONE (14:30)
[2022-04-20] MEDS ORDERED: ketorolac trometh inj. 60 MG/2 ML VIAL IM ONE (14:30)
[2022-04-20] MEDS ORDERED: morphine 4 MG/ML inj SYRINge IM ONE (15:45)
== END 2022-04-20 17:05 | disposition home or self-care (01) ==
LOC: ER 12:43
DX: M48.061 Spinal stenosis, lumbar region without neurogenic claudication (principal); M54.59 Other low back pain; I10 Essential (primary) hypertension; J44.9 Chronic obstructive pulmonary disease, unspecified; E03.9 Hypothyroidism, unspecified; M19.90 Unspecified osteoarthritis, unspecified site; F32.9 Major depressive disorder, single episode, unspecified
CPT/HCPCS: 96372; 99284; J1885; J2270

== ENCOUNTER 2022-04-27 18:10 | Emergency (ER) | payer OTHER ==
[~2022-04-27] VITALS: Ht 160 cm; Wt 68.0 kg
[~2022-04-27 18:10] MED LIST changes: +GABA300C PO
[2022-04-27 18:15] VITALS: BP 137/85
[2022-04-27] MEDS ORDERED: ketorolac trometh inj. 60 MG/2 ML VIAL IM ONE (19:10)
[2022-04-27] MEDS ORDERED: oxyCODONE/APAP 5-325mg tablet PO ONE (19:10)
== END 2022-04-27 19:55 | disposition home or self-care (01) ==
LOC: ER 18:11
DX: M54.59 Other low back pain (principal); J44.9 Chronic obstructive pulmonary disease, unspecified; Z76.5 Malingerer [conscious simulation]; G89.29 Other chronic pain; M54.9 Dorsalgia, unspecified; E03.9 Hypothyroidism, unspecified; F32.A Depression, unspecified; I10 Essential (primary) hypertension; Z88.6 Allergy status to analgesic agent; Z79.899 Other long term (current) drug therapy
CPT/HCPCS: 96372; 99283; J1885